=== PATIENT | female | born 1940 | race Caucasian/White ===

== ENCOUNTER 2017-03-11 16:15 | Emergency (ER) | payer MEDICARE, BC ==
[2017-03-11 16:23] VITALS: BP 132/76
--- NOTE | 2017-03-11 16:30 | UC ---
Neck Pain HPI - HPI Summary HPI Summary: 76 YEAR OLD FEMALE PRESENTS WITH COMPLAINS OF RIGHT SIDED NECK PAIN AND RIGHT WRIST DORSAL GANGLION. - History of Current Complaint Chief Complaint: ALESSANDRAkin Stated Complaint: NECK,SHOULDER,HEAD PAIN,WRIST INJURY Time Seen by Provider: 03/11/17 16:25 - Allergies/Home Medications Allergies/Adverse Reactions: Allergies Allergy/AdvReac Type Severity Reaction Status Date / Time Codeine Allergy Severe migraines Verified 03/11/17 16:24 Erythromycin Allergy Severe migraines Verified 03/11/17 16:24 zpack Allergy Mild migraines Uncoded 03/11/17 16:24 PMH/Surg Hx/FS Hx/Imm Hx Previously Healthy: Yes - Surgical History Surgical History: Yes Surgery Procedure, Year, and Place: partial hysterectomy, mastectomy left 1985 with chemo last dose 1985,tonsillectomy, appendectomy - Social History Alcohol Use: Rare Substance Use Type: None Smoking Status (MU): Never Smoked Tobacco Review Of Systems Constitutional: Positive: Negative Skin: Positive: Negative Eyes: Positive: Negative ENT: Positive: Negative Respiratory: Positive: Negative Gastrointestinal: Positive: Negative Genitourinary: Positive: Negative Musculoskeletal: Positive: Negative, Myalgia, Other: - RIGHT SIDED NECK PAIN RIGHT DORSUM GANGLION CYST Neurological: Positive: Negative Psychological: Positive: Negative All Other Systems Reviewed And Are Negative: Yes Physical Exam Triage Information Reviewed: Yes Vital Signs: Initial Vital Signs Temp 36.8 C 03/11/17 16:18 Pulse 70 03/11/17 16:18 Resp 18 03/11/17 16:18 BP 132/76 03/11/17 16:18 Pulse Ox 99 03/11/17 16:18 Eye Exam: Normal ENT Exam: Normal Dental Exam: Normal Neck exam: Normal Neck: Positive: 1 Respiratory Exam: Normal Cardiovascular Exam: Normal Abdominal Exam: Normal Musculoskeletal: Positive: Other: - RIGHT SIDED NECK PAIN RIGHT DORSUM GANGLION CYST Neurological Exam: Normal Psychological Exam: Normal Skin Exam: Normal Neck Pain Course/Dx - Differential Dx/Diagnosis Provider Diagnoses: RIGHT SIDED NECK PAIN. RIGHT DORSUM GANGLION CYST Discharge - Discharge Plan Condition: Stable Disposition: HOME Prescriptions: Diclofenac 1% GEL (NF) [Voltaren 1% GEL (NF)] 2 gm TOPICAL BID PRN #1 tube PRN Reason: Pain Methocarbamol TAB* [Robaxin 500 MG TAB*] 500 mg PO TID PRN #30 tab PRN Reason: Spasms Methylprednisolone [Medrol Dosepak 4 MG*] 4 mg PO .SEE MIAN INSTRUCTION #1 packet Patient Education Materials: Ganglion Cysts (ED), Acute Neck Pain (ED), Cervical Sprain (ED) Referrals: Tony Estrada MD [Primary Care Provider] -
--- NOTE | 2017-03-11 17:54 | RAD ---
INDICATION: Right wrist pain after "itching her wrist 2 days ago" COMPARISON: None. TECHNIQUE: 3 views right wrist. REPORT: The visualized bones are properly aligned and well corticated. The joint spaces are normal.There is no fracture, dislocation or other focal osseous abnormality. IMPRESSION: Normal radiograph of the right wrist. If the patient's symptoms persist, follow-up imaging is recommended.
--- NOTE | 2017-03-11 17:56 | RAD ---
INDICATION: Neck pain with right shoulder radiation COMPARISON: None. TECHNIQUE: 5 views of the cervical spine were obtained. FINDINGS: There is reversal of the normal cervical lordosis with the apex at the C5 level. The vertebral bodies and facet joints are otherwise anatomically aligned. Degenerative changes include loss of intervertebral disc height most severely at C5/C6 and C6/C7 where there is marginal osteophyte formation. The vertebral bodies are intact. The dens is intact. There is no acute prevertebral soft tissue swelling. IMPRESSION: Degenerative changes of the cervical spine as described above as well as reversal of the normal cervical lordosis, a nonspecific finding that can be seen in the setting of muscle spasm. If the patient's symptoms persist, follow-up imaging is recommended.
== END 2017-03-11 18:12 | disposition home or self-care (01) ==
LOC: UCEAST 16:15
DX: M54.2 Cervicalgia (principal); M67.431 Ganglion, right wrist; Z90.711 Acquired absence of uterus with remaining cervical stump; Z90.12 Acquired absence of left breast and nipple; Z85.3 Personal history of malignant neoplasm of breast; Z88.1 Allergy status to other antibiotic agents; Z88.5 Allergy status to narcotic agent
CPT/HCPCS: 72050; 99212; G0463

== ENCOUNTER 2017-08-24 08:11 | Emergency (ER) | payer MEDICARE, BC ==
[2017-08-24 08:27] VITALS: BP 111/71
--- NOTE | 2017-08-24 08:51 | UC ---
Back Pain HPI - HPI Summary HPI Summary: 1 WEEK OF PROGRESSIVELY WORSENING LOW BACK PAIN. FEELS DISCOMFORT EVEN AT REST - WORSE WITH MOVEMENT. DENIES NUMBNESS/TINGLING/SADDLE ANESTHESIA BUT DOES REPORT SOME DIFFICULTY WITH INITIATING URINATION AND SLOW URINE STREAM OVER THE PAST COUPLE OF YEARS. THIS SEEMS UNCHANGED WITH ONSET OF LOW BACK PAIN. PT REPORTS SHE WILL OCCASIONALLY HAVE SIMILAR LOW BACK PAIN BUT THAT AFTER A COUPLE OF DAYS IT GOES AWAY. PT DENIES FEVER. THERE HAS BEEN NO TRAUMA OR UNUSUAL ACTIVITY. HAS A GENERAL FEELING OF MALAISE. NO HELP WITH HEAT, ICE, OTC ANALGESICS. - History of Current Complaint Chief Complaint: UCBackPain Stated Complaint: BACK PAIN Time Seen by Provider: 08/24/17 08:38 Hx Obtained From: Patient Onset/Duration: Sudden Onset, Lasting Days, Still Present Timing: Constant Severity Initially: Moderate Severity Currently: Moderate Pain Intensity: 7 Pain Scale Used: 0-10 Numeric Back Pain: Is Discrete @ - LOW BACK Character: Sharp Aggravating Factor(s): Movement Alleviating Factor(s): Nothing Associated Signs And Symptoms: Negative: Swelling, Redness, Bruising, Weakness, Numbness, Bladder Incontinence, Bowel Incontinence - Allergies/Home Medications Allergies/Adverse Reactions: Allergies Allergy/AdvReac Type Severity Reaction Status Date / Time Codeine Allergy Severe migraines Verified 03/11/17 16:24 Erythromycin Allergy Severe migraines Verified 03/11/17 16:24 zpack Allergy Mild migraines Uncoded 03/11/17 16:24 Home Medications: Home Medications Budesonide/Formote 160/4.5(NF) [Symbicort 160/4.5 (NF)] 1 puff INHH DAILY [History Confirmed 08/24/17] Calcium Carbonate-Cholecalcife [Calcium 1000 + D 1000-800 mg-Unit] 1 tab PO [History] Turmeric (Curcuma Longa) (Bulk [Turmeric] 1 tab PO DAILY 08/24/17 [History Confirmed 08/24/17] PMH/Surg Hx/FS Hx/Imm Hx Neurological History: Migraine Cancer History: Breast Cancer - Surgical History Surgical History: Yes Surgery Procedure, Year, and Place: partial hysterectomy, mastectomy left 1985 with chemo last dose 1985,tonsillectomy, appendectomy - Family History Known Family History: Positive: Hypertension - Social History Alcohol Use: Rare Substance Use Type: None Smoking Status (MU): Never Smoked Tobacco Review of Systems Constitutional: Negative Skin: Negative Respiratory: Negative Cardiovascular: Negative Gastrointestinal: Negative Musculoskeletal: Decreased ROM, Myalgia All Other Systems Reviewed And Are Negative: Yes Physical Exam Triage Information Reviewed: Yes Appearance: Well-Appearing, No Pain Distress, Well-Nourished Vital Signs: Initial Vital Signs Temp 97.7 F 08/24/17 08:22 Pulse 80 08/24/17 08:22 Resp 16 08/24/17 08:22 BP 111/71 08/24/17 08:22 Pulse Ox 97 08/24/17 08:22 Vital Signs Reviewed: Yes Eyes: Positive: Conjunctiva Clear ENT: Positive: Hearing grossly normal Neck: Positive: Supple Respiratory: Positive: No respiratory distress, No accessory muscle use Cardiovascular: Positive: Pulses Normal Abdomen Description: Positive: Soft Musculoskeletal: Positive: No Edema, ROM Limited @ - BACK, Other: - TTP LOW BACK OVER SPINE Neurological: Positive: Alert Psychological: Positive: Age Appropriate Behavior Skin: Negative: rashes Diagnostics - Laboratory Diagnostic Studies Completed/Ordered: URINE DIP SP. GR. 1.015, TRACE KETONES, TRACE LEUKS - Radiology LUMBARSARCRAL XRAYS Xray Interpretation: Positive (See Comments) - FACET OSTEOARTHRITIS MOST PRONOUNCED AT L4-L5 AND L5-S1 WITH MILD DEGENERATIVE DISC DISEASE. Radiology Interpretation Completed By: Radiologist Back Pain Course/Dx - Differential Dx/Diagnosis Provider Diagnoses: LOW BACK PAIN/OA/DJD Discharge - Discharge Plan Condition: Stable Disposition: HOME Patient Education Materials: Osteoarthritis (ED), Low Back Strain (ED), Degenerative Disc Disease (ED) Referrals: [facility] [Provider Group] - 2 Weeks Tony Estrada MD [Primary Care Provider] - 1 Week Yue Alanis MD [Medical Doctor] - 2 Weeks Additional Instructions: XRAY TODAY SHOWS OSTEOARTHRITIS AND DEGENERATIVE DISC DISEASE BUT NO ACUTE PATHOLOGY. FOLLOW-UP WITH YOUR PCP TO FURTHER EVALUATE YOUR PERSISTENT BACK PAIN. YOU MAY BENEFIT FROM FURTHER IMAGING AND MAY CONSIDER EVAL BY [facility] IN [place]. PHYSICAL THERAPY REFERRAL PROVIDED TODAY. [facility] [address] [place] [id number] CONSIDER UROLOGY AND/OR PIPE ORGAN INSTALLER EVAL FOR YOUR URINARY SX. URINE SPECIMEN SENT FOR CULTURE.
--- NOTE | 2017-08-24 09:43 | RAD ---
HISTORY: Back pain COMPARISONS: October 17, 2006 VIEWS: 5 , Frontal, lateral, coned-down lateral sacral, and bilateral oblique views of the lumbar spine. FINDINGS: ALIGNMENT: The alignment is normal. VERTEBRAL BODIES: The vertebral body heights are normal. The interpedicular distances are normal. JOINTS: There is facet osteoarthritis most pronounced at L4-L5 and L5-S1. INTERVERTEBRAL DISCS: There is mild diffuse loss of intervertebral disc height. SOFT TISSUE: Vascular calcifications are noted. OTHER: The pelvis is unremarkable. The lung bases are clear. IMPRESSION: FACET OSTEOARTHRITIS MOST PRONOUNCED AT L4-L5 AND L5-S1 WITH MILD DEGENERATIVE DISC DISEASE.
== END 2017-08-24 10:22 | disposition home or self-care (01) ==
LOC: UCEAST 08:11
DX: M54.5 Low back pain (principal); M19.90 Unspecified osteoarthritis, unspecified site; R39.198 Other difficulties with micturition; Z85.3 Personal history of malignant neoplasm of breast
CPT/HCPCS: 72110; 81003; 87086; 99211; G0463

== ENCOUNTER 2018-12-16 07:33 | Emergency (ER) | payer MEDICARE, BC ==
--- OUTSIDE RECORDS SUMMARY | 2018-12-16 07:42 | XMS REPORT | Continuity of Care Document ---
:1940 External Reference #:[id number] Author Name Chari Etienne Care Team Providers Name Role Phone Gauri Herbert M.D. Primary Care Physician Unavailable Payers Date Identification Numbers Payment Provider Subscriber Effective: 2004 Policy Number: [id number] Medicare Elham Colin PayID: [id number] [address] [place] [address] Effective: 2012 Policy Number: [id number] BS Facets Elham Colin PayID: [id number] [address] [address] [place] [address] Effective: 2005 Policy Number: [id number] BS Of GASTON Colin Expires: 2012 Group Number: [id number] [address] PayID: [id number] [place] [address] Advance Directives Type Date Description Status Comment Other Directive 09/02/2017 Health Care Proxy Current and Verified Problems Active Problems Provider Date Heterozygous Factor V Leiden mutation Tony Estrada M.D.,FACP Onset: 04/2015 Irritable bowel syndrome Tony Estrada M.D.,FACP Onset: 10/17/2007 Personal history of primary malignant Tony Estrada M.D.,FACP Onset: neoplasm of breast Note: 1985 Migraine without aura, not refractory Tony Estrada M.D.,FACP Onset: 01/2008 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.,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 climacteric state Tony Estrada M.D.,FACP Onset: 02/25/2011 Insomnia Tony Estrada M.D.,FACP Onset: 07/23/2011 Osteoporosis Tony Estrada M.D.,FACP Onset: 12/29/2016 Note: spinal, not hip Inactive Problems Lymphadenopathy Tony Estrada M.D.,FACP Onset: 07/02/2013 Inactive: 09/19/2014 Disorder of bone Tony Estrada M.D.,FACP Onset: 05/07/2008 Inactive: 04/09/2015 Osteopenia Tony Estrada M.D.,FACP Onset: 04/09/2015 Inactive: 12/29/2016 Family History Date Family Member(s) Observation Comments : (age 48 Years) Father due to MA Mother due to Stroke () Children 2 First Daughter Arnold-Chiari I malformation First Daughter Pulmonary Embolism (Pe) First Daughter Factor 5 Leiden Second Daughter Depression Siblings Only child Siblings None Social History Type Date Description Comments Sex Unknown Marital Status Occupation Retired Tobacco Use Start: Unknown Never Smoked Cigarettes Tobacco Use Start: Unknown Significant Secondhand Smoke Exposure Smoking Status Reviewed: 12/11/18 Significant Secondhand Smoke Exposure ETOH Use 10/05/2018 Rarely consumes alcohol Recreational Drug Use Denies Drug Use Tobacco Use Start: Unknown Patient has never smoked Exercise Type/Frequency Exercises sporadically Allergies, Adverse Reactions, Alerts Active Allergies Reaction Severity Comments Date Erythromycin headache 10/17/2007 Reglan 10/17/2007 Compazine 10/17/2007 Mirapex fever, muscle pain 01/16/2009 Cefdinir severe migraine 08/28/2010 Nifedipine severe migraines 12/07/2012 Medications Active Medications SIG Qnty Indications Ordering Date Provider Shingrix 0.5 milliliters 2units Tony Ulrich 10/05/2018 intramuscular now Gamal Estrada,FACP 50mcg/0.5ML and 2-3 months later Suspension Rec repeat Riboflavin 4 every day 120caps Tony Ulrich 12/29/2016 100mg Gamal Estrada,FACP Capsules Vitamin B-Complex 1 by mouth every day 90tabs Tony Ulrich 09/24/2016 Gamal Estrada,FACP Tablets Calcium Citrate + Tony Ulrich 09/24/2016 D3 Gamal Estrada,FACP [id number] Tablets Vitamin A 1 daily Tony Ulrich 07/23/2011 5000Unit Gamal Estrada,FACP Capsules Potassium/Magnesium 1 daily Tony Ulrich 07/23/2011 Aspartate Gamal Estrada,FACP 50-20mg Capsules Iron 29 MG daily Unknown Turmeric 300 mg daily Unknown Glucosamine daily w/ MSM Unknown Chondroitin 1500 Complex 1500Com Capsules Aspirin Adult take one tab daily Unknown 325mg Tablets [place] Mushroom Unknown Capsule Magnesium 1 po bid 30caps Unknown 400mg Capsules Vitamin D 1 po qd Unknown 2000Unit Capsules Vitamin C 3 In Am, 2 In PM Unknown 2000mg Tablets History Medications Ranitidine 150 1 tab by mouth twice 60tabs R06.00 Kameron Kapadia 2018 - Maximum Strength a day 12/04/2018 150mg Tablets Flutter use as instructed 1units Kameron Kapadia 11/04/2018 - Device twice a day 12/10/2018 Zofran Odt let one tablet 30tabs Tony Ulrich 03/15/2018 - 4mg dissolve on tongue Gamal Estrada,[facility] 09/29/2018 Tablets Dispers every 5-6 hours as needed for nausea. Doxycycline Hyclate 1 by mouth twice a 60tabs Tony Ulrich 02/17/2018 - day Gamal Estrada,[facility] 09/29/2018 100mg Tablets Nabumetone take one tablet by 20tabs Tony Ulrich 01/27/2018 - 500mg mouth twice a day as Gamal Estrada,[facility] 09/29/2018 Tablets needed Flector apply 1 patch to the 10units Tony Ulrich 01/16/2018 - 1.3% skin two times daily [facility] 01/27/2018 Patches as needed Doxycycline Hyclate 1 by mouth twice a 28tabs Tony Ulrich 01/16/2018 - day [facility] 02/01/2018 100mg Tablets Rozerem 1 by mouth every 30tabs Tony Ulrich 10/12/2017 - 8mg Tablets night at bedtime as Gamal Estrada,[facility] 09/29/2018 needed for insomnia Triamcinolone apply every day as 15gm Tony Ulrich 12/07/2016 - Acetonide needed Gamal Estrada,[facility] 09/29/2018 0.1% Cream B2 Tony Ulrich 09/24/2016 - 100mg Tablets Gamal Estrada,[facility] 12/29/2016 Symbicort 2 puff twice a day 3units Tony Ulrich 09/24/2016 - Gamal Estrada,[facility] 12/28/2017 80-4.5mcg/Act Aerosol Olopatadine HCL 1 drop in eyes twice 1units Tony Ulrich 09/24/2016 - a day Gamal Estrada,[facility] 01/27/2018 0.1% Solution Systane one drop in each eye 120ml Tony Ulrich 09/24/2016 - 0.4-0.3% twice daily plus as Gamal Estrada,[facility] 01/27/2018 Solution needed every 2 hours Melatonin ER 1 by mouth every 30tabs R41.3 Tony Ulrich 09/24/2016 - 10mg night at bedtime Gamal Estrada,[facility] 09/26/2017 Tablets ER Xifaxan 1 tab by mouth three 42tabs Kimo Vang, 05/08/2015 - 550mg a day 09/24/2016 Tablets Aspirin 1 by mouth every day 786.59 Tony Ulrich 10/07/2014 - 325mg prn Gamal Estrdaa,[facility] 09/24/[address] Azithromycin 2 tabs by mouth on 6tabs 465.8 Cory Arteaga NP 10/07/2014 - 250mg day one followed by 04/16/2015 Tablets 1 tab daily for the last 4 days Pennsaid 5 ggts L wrist bid 15ml 726.90 Tony Ulrich 10/03/2013 - 1.5% prn Gamal Estrada,[facility] 10/10/2013 Solution Ibuprofen tid prn 90tabs 726.90 Tony Ulrich 10/03/2013 - 600mg Gamal Estrada,[facility] 10/10/2013 Tablets Voltaren apply 2 gms to 100g 726.90 Tony Ulrich 09/10/2013 - 1% Gel affected area bid Gamal Estrada,[facility] 10/03/2013 prn Levaquin 1 po qd x 14 days 7tabs Tony Ulrich 07/02/2013 - 500mg for bronchiectasis Gamal Estrada,[facility] 09/10/2013 Tablets exacerbation Levofloxacin 1 po qd 7tabs Tony Ulrich 02/19/2013 - 500mg Gamal Estrada,[facility] 02/26/2013 Tablets Aspirin 1 po qd 30tabs 786.59 Tony Ulrich 02/12/2013 - 325mg Gamal Estrada,[facility] 10/07/2014 Tablets Benzonatate take 1 capsule by 60caps 461.8 Ayala 02/09/2013 - 200mg mouth three times a CottonGamal 09/10/2013 Capsules day if needed Asmanex 30 Metered inhaled qd 1units Tony Ulrich 02/06/2013 - Doses Gamal Estrada,[facility] 02/26/2013 110mcg/Inh Aerosol Azithromycin take 2 tab on day 1 6tabs Nina Cortez, 01/17/2013 - 250mg then 1 tab daily x 4 M.D. 01/29/2013 Tablets days Benzonatate 1 tab at hs 10caps 461.8 Nina Cortez, 01/15/2013 - 100mg M.DKaylen 02/09/2013 Capsules Coumadin as directed 90tabs V58.61 Melanie Blum, 01/15/2013 - 1mg N.P. 02/12/2013 Tablets Nifedipine 1 po qd 444.9 Tony Ulrich 11/24/2012 - 90mg Gamal Estrada,[facility] 11/24/2012 Tablets ER 24HR Coumadin 2 qd x3 day, then 1 30tabs 444.9 Tony Ulrich 11/23/2012 - 2.5mg qd or as directed Gamal Estrada,[facility] 01/25/2013 Tablets Warfarin Sodium 2 tabs qd for 3 30tabs 444.9 Tony Ulrich 11/23/2012 - days, then 1 qd or Gamal Estrada,[facility] 11/23/2012 Tablets as directed Nifedipine 1/4 tab PO tid 30caps 444.9 Tony Ulrich 11/23/2012 - 10mg Gamal Estrada,[facility] 12/07/2012 Capsules Nifedipine 1 po daily Tony Ulrich 11/23/2012 - 2.5mg Gamal Estrada,[facility] 11/23/2012 Capsules Nifedipine 1/4 tab PO tid 30caps Tony Ulrich 11/22/2012 - 10mg Gamal Estrada,[facility] 11/23/2012 Capsules Omeprazole 1 po qd 30caps 535.00 Tony Ulrich 10/20/2012 - 20mg Gamal Estrada,[facility] 12/07/[address] Gann/Potasstyree 1 bid x 7 days 14tabs 466.0 Tony Ulrich 09/06/2012 - um Clavulanate Gamal Estrada,[facility] 10/20/2012 875-125mg Tablets Levaquin 1 po qd x 10 days 10tabs 473.0 Tony Ulrich 04/04/2012 - 500mg Gamal Estrada,[facility] 05/02/2012 Tablets Aspirin Ec 1 po qd 90tabs 786.59 Tony Ulrich 03/20/2012 - 81mg [facility] 02/12/[address] Hernandez take 1 capsule by 30caps Tony Ulrich 11/08/2011 - 324mg mouth at bedtime Gamal [facility]strada,[facility] 10/20/2012 Capsules Paul-Mag 2 daily Tony Ulrich 07/23/2011 - 500-250mg [facility]al [facility]strada,[facility] 12/29/2016 Tablets Rozerem use prn sleep 20tabs 780.52 Tony Ulrich 07/23/2011 - 8mg Tablets Gamal Estrada,[facility] 11/23/2012 Xifaxan 1 po tid for 2 wks 42tabs 564.1 Tony Ulrich 02/25/2011 - 550mg Gamal Estrada,[facility] 07/23/2011 Tablets Frova q2h prn mdd2 9tabs Tony Ulrich 08/14/2010 - 2.5mg Tablets Gamal Estrada,[facility] 11/23/2012 Relpax prn q2h po mdd 2 12tabs Tony Ulrich 08/10/2010 - 20mg Tablets Gamal Estrada,[facility] 08/14/2010 Advair Diskus 1 puff po bid 1units Trevon 07/22/2010 - Gamal Lewis 08/28/2010 250-50mcg/Dose Aerosol Proventil HFA 2 puffs qid 1month 466.0 [place] 07/13/2010 - Gamal Lewis 07/23/2011 108(90Base) mcg/ac Aerosol Duoneb 1 vial via neb q 6 120units [place] 07/13/2010 - hours prn Gamal Lewis 08/28/2010 0.5-2.5(3)mg/3ML Solution Nasonex 2 sprays each 3mon 381.81 Tony Ulrich 07/06/2010 - 50mcg/Act nostril daily Gamal Estrada,[facility] 07/23/2011 Suspension Zolpidem Tartrate 1 tab po qhs prn 20tabs 780.52 Tony Ulrich 04/29/2009 - Gamal Estrada,[facility] 07/23/2011 5mg Tablets Zofran Odt po/sl prn two 346.11 Tony Ulrich 04/29/2009 - 8mg Gamal Estrada,[facility] 07/23/2011 Tablets Dispers Doxepin HCL use as directed 100caps Tony Ulrich 01/16/2009 - 10mg Gamal Estrada,[facility] 04/29/2009 Capsules Vitamin D 2 po qd 90caps Tony Ulrich 12/09/2008 - 1000Unit Gamal Estrada,[facility] 12/07/2012 Capsules Glycolax 17 g po qd, mixed 1month 729.82 Tony Ulrich 12/09/2008 - 3350NF with water Gamal Estrada,[facility] 07/23/2011 Powder Magnesium Sulfate inject 2ml(1gm)after 20units Tony Giraldo/04/2009 - dilution qd prn [facility] 02/25/2011 50% Solution Gabapentin 2-3 tabs qhs po prn 90caps 333.94 Tony Ulrich 11/18/2008 - 100mg [facility]ada,[facility] 02/25/2011 Capsules Magnesium (Not Sure 2 packets daily. Tony Ulrich 11/18/2008 - Which Type) Gamal Estrada,[facility] 11/18/2008 400mg Trazodone HCL 1/2-1 QHS 30tabs Tony Ulrich 05/07/2008 - 50mg Gamal Estrada,[facility] 11/18/2008 Tablets Sennagen 4 tab po qhs 30tabs Tony Ulrich 10/17/2007 - 8.6mg Gamal Estrada,[facility] 07/23/2011 Tablets Amitiza 1 bid po 60caps 564.1 Tony Ulrich 10/17/2007 - 24mcg Gamal Estrada,[facility] 05/07/2008 Capsules Gentamicin Sulfate 2 ggt affected eye 5ml Tony Ulrich 07/21/2007 - q4h Gamal Estrada,[facility] 10/17/2007 0.3% Solution Naproxen 1 PO bid prn 60tabs Tnoy Ulrich 07/07/2007 - 500mg Gamal Estrada,[facility] 07/23/2011 Tablets Symbicort Unknown - 12/10/2018 Tamsulosin HCL 1 by mouth every day Unknown - 10/05/2018 0.4mg Capsules Amoxicillin/Clavula 1 po bid 10tabs Unknown - jean paul Potassium 01/29/2013 875-125mg Tablets Flonase 2 intranasal puffs 1units Unknown - 50mcg/Act to each nostril 02/26/2013 Suspension daily Vitamin E With 1 qod Unknown - Selenium 07/02/2013 400Iu/100mcg Capsule Ketorolac tid until gone Unknown - Tromethamine 01/29/2013 0.5% Solution Prednisolone 1 drop qid for a Unknown - Acetate month 01/29/2013 1% Suspension Vigamox 1 drop qid for a Unknown - 0.5% week. 12/07/2012 Solution Lovenox sc bid 10units Tony Ulrich - 60mg/0.6ML Gamal Estrada,FACP 11/27/2012 Solution Riboflavin 4 tabs qd Unknown - Tablets 09/24/2016 Petadolex 1 tab po tid Unknown - 250mg 09/10/2013 Magnesium 1 PO qd Tony Ulrich - 600mg Gamal Estrada,FACP 07/02/2013 Tablets Vitamin A & D Tony Ulrich - [facility] 12/09/2008 Vitamin E 1 PO qd Tony Ulrich - 400Unit Gamal Estrada,FACP 12/07/2012 Capsules Vit Balanced B-100 1 tablet daily Tony Ulrich - Gamal Estrada,FACP 09/26/2017 Vit C 1 PO qd Tony Ulrich - 500mg, Gamal Estrada,FACP 12/07/2012 Tablets Indomethacin SA 1 tab daily as 30caps Tony Ulrich - needed for migraine Gamal Estrada,FACP 07/23/2011 75mg Capsules ER Imitrex Tony Ulrich - 20mg/Act Gamal Estrada,FACP 08/10/2010 Solution Medications Administered in Office Medication SIG Qnty Indications Ordering Provider Date Celestone 3 mg and 3mg Denisha Tang, 05/01/2014 Injection M.DKaylen Celestone 3 mg and 3mg Denisha Tang, 10/10/2013 Injection M.DKaylen Immunizations CPT Code Status Date Vaccine Reaction Lot # [id number] Given 05/08/2018 Influenza Virus Vaccine, [id number] Quadrivalent, Split, Preservative Free 22330 Given 05/02/2017 Influenza Virus Vaccine, pt tolerated well [id number] Quadrivalent, Split, Preservative Free 75811 Given 05/15/2016 Influ Virus Vaccine, noo reaction noted ... [id number] Quadrivalent, Split Virus, [place] [address] Given 04/17/2015 Influenza Virus Vaccine, no reaction , no [id number] Quadrivalent, Split, comments Preservative Free 98783 Given 09/19/2014 Pneumococcal Conjugate [id number] Vaccine 13 Valent For Intramuscular Use 56669 Given 05/03/2014 Influenza Virus Vaccine, Quadrivalent, Split, Preservative Free 23311 Given 05/03/2014 Influenza Virus Vaccine, [id number] Quadrivalent, Split, Preservative Free 88586 Given 05/07/2013 Flu Vaccine Split Virus [id number] Preservative Free For Indiv 3Yr Older Q2038 Given 04/04/2012 Fluzone Vaccine [id number] Q2038 Given 04/09/2011 Fluzone Vaccine [id number] Q2038 Given 04/09/2011 Fluzone Vaccine Q2038 Given 04/09/2011 Fluzone Vaccine 89162 Given 05/08/2010 Influenza Virus 3Yrs & [id number] Over 78610 Given 05/08/2010 Influenza Virus 3Yrs & Over 89372 Given 07/21/2009 Influenza Virus Vaccine, [id number] 5P Pandemic Formulation 69167 Given 05/07/2008 Influenza Virus 3Yrs & Over 41724 Given 05/07/2008 Influenza Virus 3Yrs & 7723 Over 33278 Given 09/02/2006 Zoster (Zostavax) 03913 Given 12/10/2005 Tetanus And Diptheria (Td) For Adult Use Preservative Free 58192 Given 02/09/2005 Pneumonia Vaccine Vital Signs Date Vital Result Comment 12/11/2018 9:43am Height 65.5 inches 5'5.50" Weight 116.00 lb Heart Rate 84 /min BP Systolic Sitting 110 mmHg Rue regular cuff BP Diastolic Sitting 60 mmHg Rue regular cuff Respiratory Rate 20 /min O2 % BldC Oximetry 96 % BMI (Body Mass Index) 19.0 kg/m2 11/04/2018 8:43am Height 65.5 inches 5'5.50" Weight 117.00 lb Heart Rate 70 /min BP Systolic Sitting 124 mmHg BP Diastolic Sitting 66 mmHg Respiratory Rate 18 /min O2 % BldC Oximetry 94 % on Ra BMI (Body Mass Index) 19.2 kg/m2 Neck Circumference in inches 12 10/05/2018 2:29pm Height 65.5 inches 5'5.50" Weight 117.25 lb Heart Rate 73 /min BP Systolic Sitting 116 mmHg reg adult cuff right arm BP Diastolic Sitting 72 mmHg reg adult cuff right arm O2 % BldC Oximetry 94 % at rest on room air BMI (Body Mass Index) 19.2 kg/m2 02/13/2018 10:43am Weight 115.00 lb Heart Rate 84 /min BP Systolic Sitting 120 mmHg BP Diastolic Sitting 66 mmHg Body Temperature 96.7 F O2 % BldC Oximetry 95 % 01/27/2018 8:42am Weight 115.38 lb Heart Rate 72 /min BP Systolic Sitting 134 mmHg BP Diastolic Sitting 70 mmHg Body Temperature 97.0 F O2 % BldC Oximetry 95 % 01/16/2018 10:51am Height 65 inches 5'5" Weight 115.00 lb Heart Rate 83 /min BP Systolic Sitting 122 mmHg BP Diastolic Sitting 66 mmHg Body Temperature 97.5 F O2 % BldC Oximetry 95 % BMI (Body Mass Index) 19.1 kg/m2 12/28/2017 10:57am Height 65 inches 5'5" Weight 115.00 lb Heart Rate 84 /min BP Systolic Sitting 124 mmHg BP Diastolic Sitting 70 mmHg Body Temperature 97.0 F O2 % BldC Oximetry 94 % BMI (Body Mass Index) 19.1 kg/m2 09/26/2017 9:20am Height 65 inches 5'5" Weight 118.00 lb Heart Rate 70 /min BP Systolic Sitting 128 mmHg BP Diastolic Sitting 66 mmHg Body Temperature 97.4 F O2 % BldC Oximetry 97 % BMI (Body Mass Index) 19.6 kg/m2 09/02/2017 11:10am Weight 117.00 lb Heart Rate 80 /min BP Systolic Sitting 132 mmHg BP Diastolic Sitting 84 mmHg Body Temperature 97.8 F O2 % BldC Oximetry 94 % 12/29/2016 9:50am Weight 116.38 lb Heart Rate 75 /min BP Systolic Sitting 120 mmHg BP Diastolic Sitting 80 mmHg Body Temperature 97.6 F O2 % BldC Oximetry 96 % 09/24/2016 9:54am Height 65 inches 5'5" Weight 116.00 lb Heart Rate 78 /min BP Systolic Sitting 128 mmHg BP Diastolic Sitting 64 mmHg Body Temperature 97.3 F O2 % BldC Oximetry 97 % BMI (Body Mass Index) 19.3 kg/m2 04/17/2015 3:34pm Height 65.5 inches 5'5.50" Weight 117.12 lb Heart Rate 76 /min BP Systolic Sitting 131 mmHg BP Diastolic Sitting 85 mmHg Body Temperature 98.6 F O2 % BldC Oximetry 96 % BMI (Body Mass Index) 19.2 kg/m2 10/07/2014 11:26am Height 65.5 inches 5'5.50" Weight 123.00 lb Heart Rate 72 /min BP Systolic Sitting 110 mmHg BP Diastolic Sitting 62 mmHg Body Temperature 97.4 F O2 % BldC Oximetry 97 % BMI (Body Mass Index) 20.2 kg/m2 09/27/2014 2:15pm Weight 122.75 lb Heart Rate 80 /min BP Systolic Sitting 128 mmHg BP Diastolic Sitting 74 mmHg 05/01/2014 9:19am Height 65 inches 5'5" Weight 120.00 lb Heart Rate 86 /min BMI (Body Mass Index) 20.0 kg/m2 03/27/2014 9:31am Height 65 inches 5'5" Weight 120.00 lb Heart Rate 66 /min BP Systolic 146 mmHg BP Diastolic 83 mmHg BMI (Body Mass Index) 20.0 kg/m2 10/10/2013 8:19am Height 65 inches 5'5" Weight 120.00 lb Heart Rate 73 /min BP Systolic 126 mmHg BP Diastolic 77 mmHg BMI (Body Mass Index) 20.0 kg/m2 10/03/2013 3:57pm Height 65 inches 5'5" Weight 123.00 lb Heart Rate 72 /min BP Systolic Sitting 110 mmHg BP Diastolic Sitting 70 mmHg Body Temperature 97.9 F BMI (Body Mass Index) 20.5 kg/m2 09/10/2013 11:06am Height 65.5 inches 5'5.50" Weight 130.69 lb Heart Rate 72 /min BP Systolic Sitting 138 mmHg BP Diastolic Sitting 82 mmHg BMI (Body Mass Index) 21.4 kg/m2 07/02/2013 11:08am Height 65.5 inches 5'5.50" Weight 123.25 lb Heart Rate 68 /min BP Systolic Sitting 130 mmHg BP Diastolic Sitting 80 mmHg BMI (Body Mass Index) 20.2 kg/m2 02/26/2013 3:05pm Weight 117.50 lb Heart Rate 92 /min BP Systolic Sitting 124 mmHg BP Diastolic Sitting 72 mmHg Respiratory Rate 18 /min Body Temperature 96.8 F O2 % BldC Oximetry 98 % 02/14/2013 11:08am Height 65.25 inches 5'5.25" Weight 120.50 lb Heart Rate 82 /min BP Systolic Sitting 120 mmHg BP Diastolic Sitting 74 mmHg Body Temperature 96.5 F O2 % BldC Oximetry 94 % BMI (Body Mass Index) 19.9 kg/m2 02/09/2013 9:47am Weight 117.50 lb Heart Rate 80 /min BP Systolic Sitting 130 mmHg BP Diastolic Sitting 70 mmHg Body Temperature 97.3 F O2 % BldC Oximetry 98 % Peak Flow Meter 360 before 360,360,350 after 350,340,350 01/29/2013 3:05pm Height 65.25 inches 5'5.25" Weight 119.50 lb Heart Rate 84 /min BP Systolic Sitting 110 mmHg BP Diastolic Sitting 76 mmHg BMI (Body Mass Index) 19.7 kg/m2 01/15/2013 9:45am Weight 118.00 lb Heart Rate 87 /min BP Systolic Sitting 110 mmHg BP Diastolic Sitting 62 mmHg Body Temperature 98.3 F 12/07/2012 3:36pm Height 65.5 inches 5'5.50" Weight 120.25 lb Heart Rate 88 /min BP Systolic Sitting 120 mmHg BP Diastolic Sitting 60 mmHg BMI (Body Mass Index) 19.7 kg/m2 11/23/2012 3:38pm Height 65.25 inches 5'5.25" Weight 121.00 lb Heart Rate 68 /min BP Systolic Sitting 122 mmHg BP Diastolic Sitting 74 mmHg BMI (Body Mass Index) 20.0 kg/m2 10/20/2012 4:25pm Height 65.25 inches 5'5.25" Weight 119.00 lb Heart Rate 74 /min BP Systolic Sitting 122 mmHg BP Diastolic Sitting 76 mmHg BMI (Body Mass Index) 19.6 kg/m2 09/06/2012 4:03pm Height 65.25 inches 5'5.25" Weight 118.00 lb Heart Rate 80 /min BP Systolic Sitting 130 mmHg BP Diastolic Sitting 66 mmHg Body Temperature 97.5 F Tympanically BMI (Body Mass Index) 19.5 kg/m2 04/04/2012 11:47am Height 65.25 inches 5'5.25" Weight 121.00 lb Heart Rate 66 /min BP Systolic Sitting 124 mmHg BP Diastolic Sitting 80 mmHg Body Temperature 96.3 F lt ear BMI (Body Mass Index) 20.0 kg/m2 03/20/2012 12:25pm Height 65.25 inches 5'5.25" Weight 119.00 lb Heart Rate 66 /min BP Systolic Sitting 126 mmHg BP Diastolic Sitting 74 mmHg BMI (Body Mass Index) 19.6 kg/m2 07/23/2011 1:41pm Height 65.25 inches 5'5.25" Weight 118.75 lb Heart Rate 80 /min BP Systolic Sitting 108 mmHg BP Diastolic Sitting 60 mmHg BMI (Body Mass Index) 19.6 kg/m2 02/25/2011 3:29pm Weight 117.00 lb Heart Rate 70 /min BP Systolic Sitting 118 mmHg BP Diastolic Sitting 80 mmHg 08/28/2010 2:00pm Weight 116.00 lb Heart Rate 68 /min BP Systolic Sitting 112 mmHg BP Diastolic Sitting 68 mmHg 07/20/2010 2:35pm Heart Rate 75 /min BP Systolic Sitting 118 mmHg BP Diastolic Sitting 70 mmHg O2 % BldC Oximetry 98 % 07/13/2010 3:32pm Heart Rate 74 /min BP Systolic Sitting 126 mmHg BP Diastolic Sitting 80 mmHg Body Temperature 97.3 F O2 % BldC Oximetry 98 % 07/06/2010 11:08am Weight 114.00 lb Heart Rate 86 /min BP Systolic Sitting 112 mmHg BP Diastolic Sitting 60 mmHg 07/21/2009 1:59pm Weight 115.00 lb Heart Rate 82 /min BP Systolic Sitting 120 mmHg BP Diastolic Sitting 78 mmHg 07/04/2009 11:09am Weight 118.00 lb Heart Rate 77 /min BP Systolic Sitting 124 mmHg BP Diastolic Sitting 75 mmHg Body Temperature 98.3 F 06/24/2009 2:19pm Weight 116.00 lb Heart Rate 80 /min BP Systolic Sitting 122 mmHg BP Diastolic Sitting 70 mmHg 04/29/2009 3:14pm Weight 117.00 lb Heart Rate 82 /min BP Systolic Sitting 125 mmHg BP Diastolic Sitting 67 mmHg 04/04/2009 3:52pm Weight 115.00 lb Heart Rate 86 /min BP Systolic Sitting 114 mmHg BP Diastolic Sitting 64 mmHg 01/16/2009 11:34am Weight 112.75 lb Heart Rate 80 /min BP Systolic Sitting 120 mmHg BP Diastolic Sitting 70 mmHg 12/09/2008 11:13am Weight 113.00 lb Heart Rate 78 /min BP Systolic Sitting 100 mmHg BP Diastolic Sitting 76 mmHg BMI (Body Mass Index) 6.2 kg/m2 11/18/2008 10:02am Height 65.50 inches 5'5.50" Weight 117.00 lb Heart Rate 72 /min BP Systolic Sitting 110 mmHg BP Diastolic Sitting 64 mmHg BMI (Body Mass Index) 19.2 kg/m2 05/07/2008 11:28am Height 65.50 inches 5'5.50" Weight 114.00 lb Heart Rate 62 /min BP Systolic Sitting 118 mmHg BP Diastolic Sitting 70 mmHg BMI (Body Mass Index) 18.7 kg/m2 04/08/2008 11:56am Height 65.50 inches 5'5.50" Weight 114.00 lb Heart Rate 60 /min BP Systolic Sitting 138 mmHg BP Diastolic Sitting 60 mmHg BMI (Body Mass Index) 18.7 kg/m2 04/08/2008 11:51am Height 65.50 inches 5'5.50" Weight 118.00 lb Heart Rate 68 /min BP Systolic Sitting 98 mmHg BP Diastolic Sitting 50 mmHg BMI (Body Mass Index) 19.3 kg/m2 04/08/2008 11:49am Height 65.50 inches 5'5.50" Weight 114.00 lb BP Systolic Sitting 98 mmHg BP Diastolic Sitting 50 mmHg BMI (Body Mass Index) 18.7 kg/m2 10/17/2007 9:10am Height 65.50 inches 5'5.50" Weight 117.00 lb Heart Rate 66 /min BP Systolic Sitting 118 mmHg BP Diastolic Sitting 70 mmHg BMI (Body Mass Index) 19.2 kg/m2 Results Test Date Facility Test Result H/L Range Note CBC Auto Diff 02/13/2018 [facility] White Blood 5.6 10^3/uL N 3.5-10.[address] [place] [address] [phone] Red Blood Count 4.58 10^6/uL N 4.00-5.40 Hemoglobin 15.0 g/dL N 12.0-16.0 Hematocrit 45 % N 35-47 Mean Corpuscular Volume 98 fL High 80-97 Mean Corpuscular Hemoglobin 33 pg High 27-31 Mean Corpuscular HGB Conc 34 g/dL N 31-36 Red Cell Distribution Width 14 % N 10.5-15 Platelet Count 246 10^3/uL N 150-450 Mean Platelet Volume 8.2 um3 N 7.4-10.4 Abs Neutrophils 3.9 10^3/uL N 1.5-7.7 Abs Lymphocytes 1.1 10^3/uL N 1.0-4.8 Abs Monocytes 0.4 10^3/uL N 0-0.8 Abs Eosinophils 0.1 10^3/uL N 0-0.6 Abs Basophils 0 10^3/uL N 0-0.2 Abs Nucleated RBC 0 10^3/uL Granulocyte % 69.6 % N 38-83 Lymphocyte % 19.7 % Low 25-47 Monocyte % 7.3 % High 0-7 Eosinophil % 2.6 % N 0-6 Basophil % 0.8 % N 0-2 Nucleated Red Blood Cells % 0 Comp Metabolic Panel 02/13/2018 [facility] Sodium 141 mmol/L N 135-[address] [place] [address] [phone] Potassium 4.1 mmol/L N 3.5-5.0 Chloride 104 mmol/L N 101-111 Co2 Carbon Dioxide 30 mmol/L N 22-32 Anion Gap 7 mmol/L N 2-11 Glucose 99 mg/dL N 70-100 Blood Urea Nitrogen 19 mg/dL N 6-24 Creatinine 0.75 mg/dL N 0.51-0.95 BUN/Creatinine Ratio 25.3 High 8-20 Calcium 10.1 mg/dL N 8.6-10.3 Total Protein 6.5 g/dL N 6.4-8.9 Albumin 4.3 g/dL N 3.2-5.2 Globulin 2.2 g/dL N 2-4 Albumin/Globulin Ratio 2.0 N 1-3 Total Bilirubin 0.50 mg/dL N 0.2-1.0 Alkaline Phosphatase 82 U/L N 34-104 Alt 22 U/L N 7-52 Ast 27 U/L N 13-39 Egfr Non- 74.7 >60 Egfr 90.4 >60 1 Laboratory test 02/13/2018 [facility] C Reactive < 1.00 mg/L N <8.[address] [place] [address] [phone] Tick-Borne Panel 02/13/2018 [facility] Babesia Negative Negative PCR Blood [address] [place] [address] [phone] Babesia ducani Negative Negative Babesia divergens/Mo-1 Negative Negative 2 Anaplasma phagocytophilum Negative Negative Ehrlichia chaffeensis Negative Negative Ehrlichia ewingii/canis Negative Negative Ehrlichia muris-like Negative Negative 3 B. miyamotoi PCR, B Negative Negative 4 Lyme Disease 02/13/2018 [facility] B burgdorferi Negative Negative PCR [address] PCR, [place] [address] [phone] B mayonii PCR Negative Negative B garinii/B afzelii PCR Negative Negative Lyme Disease PCR Comment See Comment 5 Laboratory test 02/13/2018 [facility] TSH (Thyroid 1.09 mcIU/mL N 0.34-5.[address] Stim Horm) [place] [address] [phone] Comp Metabolic 01/16/2018 [facility] Sodium 140 mmol/L N 135- [address] [place] [address] [phone] Potassium 3.9 mmol/L N 3.5-5.0 Chloride 102 mmol/L N 101-111 Co2 Carbon Dioxide 29 mmol/L N 22-32 Anion Gap 9 mmol/L N 2-11 Glucose 98 mg/dL N 70-100 Blood Urea Nitrogen 15 mg/dL N 6-24 Creatinine 0.76 mg/dL N 0.51-0.95 BUN/Creatinine Ratio 19.7 N 8-20 Calcium 9.9 mg/dL N 8.6-10.3 Total Protein 6.6 g/dL N 6.4-8.9 Albumin 4.2 g/dL N 3.2-5.2 Globulin 2.4 g/dL N 2-4 Albumin/Globulin Ratio 1.8 N 1-3 Total Bilirubin 0.50 mg/dL N 0.2-1.0 Alkaline Phosphatase 73 U/L N 34-104 Alt 27 U/L N 7-52 Ast 33 U/L N 13-39 Egfr Non- 73.6 >60 Egfr 94.7 >60 6 CBC Auto Diff 01/16/2018 [facility] White Blood 6.4 10^3/uL N 3.5-10.[address] [place] [address] [phone] Red Blood Count 4.51 10^6/uL N 4.00-5.40 Hemoglobin 14.9 g/dL N 12.0-16.0 Hematocrit 44 % N 35-47 Mean Corpuscular Volume 98 fL High 80-97 Mean Corpuscular Hemoglobin 33 pg High 27-31 Mean Corpuscular HGB Conc 34 g/dL N 31-36 Red Cell Distribution Width 14 % N 10.5-15 Platelet Count 231 10^3/uL N 150-450 Mean Platelet Volume 8.2 um3 N 7.4-10.4 Abs Neutrophils 5.0 10^3/uL N 1.5-7.7 Abs Lymphocytes 0.8 10^3/uL Low 1.0-4.8 Abs Monocytes 0.5 10^3/uL N 0-0.8 Abs Eosinophils 0.1 10^3/uL N 0-0.6 Abs Basophils 0 10^3/uL N 0-0.2 Abs Nucleated RBC 0 10^3/uL Granulocyte % 77.8 % N 38-83 Lymphocyte % 12.2 % Low 25-47 Monocyte % 8.1 % High 0-7 Eosinophil % 1.2 % N 0-6 Basophil % 0.7 % N 0-2 Nucleated Red Blood Cells % 0 Laboratory test 01/16/2018 [facility] Lyme Disease Positive Negative [address] [place] [address] [phone] Lyme Western Blot 01/16/2018 [facility] Lyme Disease Negative Negative [address] [place] [address] [phone] Lyme Disease IgG Bands Present p41,p39 kDa Lyme Disease IgM Ab WB Positive Abnormal Negative Lyme Disease IgM Bands Present p41,p39 kDa Lyme Disease Interpretation See Comment 8 Lipid Profile 09/23/2017 [facility] Triglycerides 85 mg/dL 9 (Trig/Chol/HDL) [address] [place] [address] [phone] Cholesterol 224 mg/dL 10 HDL Cholesterol 62.5 mg/dL 11 LDL Cholesterol 145 mg/dL 12 Laboratory test 09/23/2017 [facility] Glucose 83 mg/dL N 70- [address] [place] [address] [phone] Urine Culture And 08/24/2017 [facility] Urine SEE RESULT 13 , Sensitivities [address] Culture BELOW 14 [place] [address] [phone] Poc Urinalysis 08/24/2017 [facility] Poc Negative Negative [address] Glucose, [place] [address] Urine [phone] Poc Bilirubin, Urine Negative Negative Poc Ketone, Urine Trace Abnormal Negative Poc Specific Marland, Urine 1.015 N 1.010-1.030 Poc Blood, Urine Negative Negative Poc pH, Urine 7.0 N 5-9 Poc Protein, Urine Negative Negative Poc Urobilinogen, Urine 0.2 Negative Poc Nitrite, Urine Negative Negative Poc Leukocytes, Urine Trace Abnormal Negative Poc Color, Urine Yellow Poc Clarity, Urine Clear 15 Laboratory test 10/20/2016 [facility] Vitamin D 44.1 ng/mL N 30-50 finding 101 [facility] Total 25(Oh) [place] [address] [phone] TSH (Thyroid Stim Horm) 1.10 mcIU/mL N 0.34-5.60 Vitamin B12 1335 pg/mL High 180-914 16 Lipid Profile 09/20/2016 [facility] Triglycerides 75 mg/dL N 17 (Trig/Chol/HDL) [address] [place] [address] [phone] Cholesterol 223 mg/dL N 18 HDL Cholesterol 75.2 mg/dL N 19 LDL Cholesterol 133 mg/dL N 20 Laboratory test 09/20/2016 [facility] Glucose 80 mg/dL N 70- 100 finding [address] [place] [address] [phone] Basic Metabolic Panel 04/18/2015 [facility] Sodium 142 mmol/L N 133-145 [address] [place] [address] [phone] Potassium 4.1 mmol/L N 3.5-5.0 Chloride 104 mmol/L N 101-111 Co2 Carbon Dioxide 32 mmol/L N 22-32 Anion Gap 6 mmol/L N 2-11 Glucose 84 mg/dL N 70-100 Blood Urea Nitrogen 16 mg/dL N 6-24 Creatinine 0.74 mg/dL N 0.51-0.95 BUN/Creatinine Ratio 21.6 High 8-20 Calcium 9.9 mg/dL N 8.6-10.3 Egfr Non- 76.5 N >60 Egfr 98.4 N >60 21 Laboratory test finding 04/18/2015 [facility] Cortisol 17.14 ?g/ dL N 22 [address] [place] [address] [phone] Magnesium 2.2 mg/dL N 1.9-2.7 Laboratory 04/09/2015 [facility] Surgical SEE RESULT [address] [place] [address] [phone] Factor 5 04/03/2015 [facility] Factor V Heterozygous N Negative Leiden [address] [place] [address] Mutation [phone] Factor V Leiden Interpretation See Comment N 24 Factor V Leiden Reviewed By Abril Noel M.D. N 25 Laboratory test 04/03/2015 [facility] Factor V 129 % N 70 - [address] [place] [address] [phone] Vitamin D, 25 07/03/2013 [facility] 25-Hydroxy <4.[address] Vitamin D2 ng/[place] [address] [phone] 25-Hydroxy Vitamin D3 40 ng/mL 25-Hydroxy Vitamin D Total 40 ng/mL 27 Basic Metabolic Panel 07/03/2013 [facility] Sodium 141 mmol/L 133-[address] [place] [address] [phone] Potassium 3.7 mmol/L 3.5-5.0 Chloride 105 mmol/L 101-111 Co2 Carbon Dioxide 31.0 mmol/L 22-32 Anion Gap 5.0 mmol/L 2-11 Glucose 88 mg/dL 70-100 Blood Urea Nitrogen 17 mg/dL 6-24 Creatinine 0.70 mg/dL 0.50-1.40 BUN/Creatinine Ratio 24.3 High 8-20 Calcium 9.9 mg/dL 8.1-9.9 Egfr Non- 81.8 >60 Egfr 105.2 >60 28 Laboratory test 07/03/2013 [facility] Vitamin B12 739 pg/mL 180-[address] [place] [address] [phone] TSH (Thyroid Stimulating Horm) 1.85 miu/mL 0.34-5.60 CBC Auto Diff 07/03/2013 [facility] White Blood 6.5 10^3/uL 4.8-10.[address] [place] [address] [phone] Red Blood Count 4.49 10^6/uL 4.0-5.4 Hemoglobin 14.6 g/dL 12.0-16.0 Hematocrit 44 % 35-47 Mean Corpuscular Volume 99 fL High 80-97 Mean Corpuscular Hemoglobin 33 pg High 27-31 Mean Corpuscular HGB Conc 33 g/dL 31-36 Red Cell Distribution Width 14 % 10.5-15 Platelet Count 253 10^3/uL 150-450 Mean Platelet Volume 9 um3 7.4-10.4 Abs Neutrophils 4.4 10^3/uL 1.5-7.7 Abs Lymphocytes 1.3 10^3/uL 1.0-4.8 Abs Monocytes 0.6 10^3/uL 0-0.8 Abs Eosinophils 0.1 10^3/uL 0-0.6 Abs Basophils 0.1 10^3/uL 0-0.2 Abs Nucleated RBC 0 10^3/uL Granulocyte % 68.1 % 38-83 Lymphocyte % 19.9 % Low 25-47 Monocyte % 8.9 % 1-9 Eosinophil % 2.1 % 0-6 Basophil % 1.0 % 0-2 Nucleated Red Blood Cells % 0 Acid Fast Smear 05/03/2013 [facility] Acid Fast Stain (SEE NOTE ) [address] - [place] [address] [phone] Laboratory test 05/03/2013 [facility] Fungal Cult - (SEE NOTE) [address] [place] [address] [phone] Mycobacterial Culture See Comment 31 Fungal Cult 05/03/2013 [facility] Fungal Cult - (SEE NOTE) 32 Other Sources [address] [place] [address] [phone] Basic Metabolic 03/28/2013 [facility] Sodium 142 mmol/L 133- [address] 5 [place] [address] [phone] Potassium 4.1 mmol/L 3.5-5.0 Chloride 105 mmol/L 101-111 Co2 Carbon Dioxide 30.0 mmol/L 22-32 Anion Gap 7.0 mmol/L 2-11 Glucose 89 mg/dL 70-100 Blood Urea Nitrogen 19 mg/dL 6-24 Creatinine 0.70 mg/dL 0.50-1.40 BUN/Creatinine Ratio 27.1 High 8-20 Calcium 10.1 mg/dL High 8.1-9.9 Egfr Non- 82.0 >60 Egfr 105.5 >60 33 Cardiolipin 03/28/2013 [facility] Cardiolipin IgG <4.0 GPL 34 Igg,Igm,Iga AB [address] [place] [address] [phone] Cardiolipin IgM <4.0 MPL 35 Cardiolipin IgA <4.0 APL 36 Laboratory test 03/28/2013 [facility] Protein C 130 % 70 - 150 [address] [place] [address] [phone] Protein C Antigen 124 % 70-150 38 Protein S Activity 79 % 65 - 160 39 Protein S Antigen 83 % 65 - 160 40 Laboratory test 02/15/2013 [facility] Blood Urea 16 mg/dL 6- [address] [place] [address] [phone] Creatinine 02/15/2013 [facility] Creatinine 0.70 mg/dL 0.50- 1.[address] [place] [address] [phone] Egfr Non- 82.0 >60 Egfr 105.5 >60 41 Culture 02/13/2013 [facility] Sputum Culture (SEE 42 Sputum/Sensitivity [address] Gram Stain NOTE) [place] [address] [phone] Protime W/ Inr 02/12/2013 [facility] Prothrombin Time 47.2 Inr 3.9 Order 02/09/2013 [facility] peak flow see VS Nebulizer Treatment done Protime W/ Inr 02/05/2013 [facility] Prothrombin Time 32.5 Inr 2.7 Protime W/ Inr 01/29/2013 [facility] Prothrombin Time 18.6 Inr 1.6 Protime W/ Inr 01/25/2013 [facility] Prothrombin Time 14.1 Inr 1.2 Protime W/ Inr 01/18/2013 [facility] Prothrombin Time 31.3 Inr 2.6 Protime W/ Inr 01/15/2013 [facility] Prothrombin Time 43.7 Inr 3.6 Protime W/ Inr 01/12/2013 [facility] Prothrombin Time 30.1 Inr 2.5 Protime W/ Inr 12/29/2012 [facility] Prothrombin Time 28.0 Inr 2.3 Lupus 12/20/2012 [facility] Prothrombin 20.5 sec Abnormal 43 Anticoagulant AB [address] Time(Lac) [place] [address] [phone] Lac Inr 1.8 Lac PT Mix 1:1 11.4 sec 44 Lac Aptt 35 sec 26 - 36 Lac DRVVT Screen Ratio 0.9 ratio 0.0 - 1.1 Lup Hexthrombin Time (Bovine) 20 sec 15 - 23 45 Lupus Anticoagulant Interpreta See Comment 46 Lupus Anticoagulant Review By Nadeem Angel <SEE NOTE> 47 Special Coagulation Interp Performed 48 Laboratory 12/20/2012 [facility] Immunoglobulin G 695 Abnormal 767 - [address] mg/dL 1590 [place] [address] [phone] Immunoglobulin M 130 mg/dL 37 - 286 50 Immunoglobulin A 76 mg/dL 61 - 356 51 Anti-Thrombin III Complex 3.3 ng/mL <4.3 52 Vitamin D 1,25-Dihydroxy 41 pg/mL 18-78 53 Laboratory test finding 12/20/2012 [facility] Inr 1.60 High 0.87-0.[address] [place] [address] [phone] TSH (Thyroid Stimulating Horm) 1.71 miu/mL 0.34-5.60 Protime W/ Inr 12/07/2012 [facility] Prothrombin Time 28.8 Inr 2.4 Laboratory test 11/30/2012 [facility] Inr 2.3 /PT 27.7 finding Lipid Profile 11/28/2012 [facility] Triglycerides 44 mg/dL 40 -200 (Trig/Chol/HDL) [address] [place] [address] [phone] Cholesterol 234 mg/dL High Less than 200 HDL Cholesterol 70 mg/dL High 40-60 54 Cholesterol/HDL Ratio 3.3 Average 1-4.44 LDL Cholesterol 155.2 mg/dL High Less Than 100 55 Factor 5 11/28/2012 [facility] Factor V Heterozygous Negative Leiden [address] [place] [address] Mutation [phone] Factor V Leiden Interpretation See Comment 56 Factor V Leiden Reviewed By See Comment 57 Factor II 11/28/2012 [facility] Prothrombin Negative Negative (Prothrombin) [address] [address] [phone] Prothrombin [id number] Interp See Comment 58 Prothrombin Mutation Review By See Comment 59 Laboratory test 11/28/2012 [facility] Homocysteine 9 mcmol/L [address] [place] [address] [phone] Protime W/ Inr 11/27/2012 [facility] Prothrombin Time 31.6 Inr 2.6 Laboratory test 11/09/2012 [facility] C Reactive 0.7 mg/dL High Less than finding [address] Protein 0.5 [place] [address] [phone] Laboratory test 11/09/2012 [facility] Inr 0.83 Low 0.87-0.[address] [place] [address] [phone] D Dimer Quantitative < 200 ng/mL Less Than 230 61 CBC Auto Diff 11/09/2012 [facility] White Blood 5.7 10^3/uL 4.8-10.[address] [place] [address] [phone] Red Blood Count 4.40 10^6/uL 4.0-5.4 Hemoglobin 14.6 g/dL 12.0-16.0 Hematocrit 44 % 35-47 Mean Corpuscular Volume 99 fL High 80-97 Mean Corpuscular Hemoglobin 33 pg High 27-31 Mean Corpuscular HGB Conc 34 g/dL 31-36 Red Cell Distribution Width 14 % 10.5-15 Platelet Count 208 10^3/uL 150-450 Mean Platelet Volume 8 um3 7.4-10.4 Abs Neutrophils 3.8 10^3/uL 1.5-7.7 Abs Lymphocytes 1.1 10^3/uL 1.0-4.8 Abs Monocytes 0.5 10^3/uL 0-0.8 Abs Eosinophils 0.3 10^3/uL 0-0.6 Abs Basophils 0.1 10^3/uL 0-0.2 Abs Nucleated RBC 0.01 10^3/uL Granulocyte % 66.3 % 38-83 Lymphocyte % 19.4 % Low 25-47 Monocyte % 8.3 % 1-9 Eosinophil % 5.1 % 0-6 Basophil % 0.9 % 0-2 Nucleated Red Blood Cells % 0.1 Comp Metabolic Panel 11/09/2012 [facility] Sodium 141 mmol/L 133-[address] [place] [address] [phone] Potassium 3.9 mmol/L 3.5-5.0 Chloride 106 mmol/L 101-111 Co2 Carbon Dioxide 29.0 mmol/L 22-32 Anion Gap 6.0 mmol/L 2-11 Glucose 97 mg/dL 70-100 Blood Urea Nitrogen 22 mg/dL 6-24 Creatinine 0.60 mg/dL 0.50-1.40 BUN/Creatinine Ratio 36.7 High 8-20 Calcium 9.9 mg/dL 8.1-9.9 Total Protein 6.8 g/dL 6.2-8.1 Albumin 4.3 g/dL 3.2-5.2 Globulin 2.5 g/dL 2-4 Albumin/Globulin Ratio 1.7 1-3 Total Bilirubin 0.6 mg/dL 0.4-1.5 Alkaline Phosphatase 71 U/L 30-110 Alt 32 U/L 14-54 Ast 36 U/L 12-42 Egfr Non- 98.0 >60 Egfr 126.0 >60 62 CBC Auto Diff 03/17/2012 [facility] White Blood 5.2 CUMM 4.8- 10.[address] [place] [address] [phone] Red Cell Count 4.32 CUMM 4.2-5.4 Hemoglobin 14.8 g/dL 12.0-16.0 Hematocrit 43 % 35-47 Mean Corpuscular Volume 99 um3 High 79-97 Mean Corpuscular Hemoglob 34 pg High 27-31 Mean Corpuscular HGB Cone 35 g/dL 32-36 Redcell Distribution WDTH 14 % 10.5-15 Platelet Count 231 CUMM 150-450 Mean Platelet Volume 8.5 um3 7.4-10.4 Gran % 62.3 % 38-83 Lymph % 24.1 % 20-45 Mononuclear % 10.9 % High 1-9 Eosinophil % 1.8 % 0-6 Basophil % 0.9 % 0-2 Abs Lymphs 1.2 1.0-4.8 Abs Mononuclear 0.6 0-0.8 Absolute Neutrophil Count 3.2 1.5-7.7 Abs Eosinophils 0.1 0-0.6 Abs Basophils 0 0-0.2 Laboratory test 03/17/2012 [facility] Monospot NEGATIVE Negative finding [address] [place] [address] [phone] Rapid Strep A 03/17/2012 [facility] M [address] --- <[place] [address] NOTE> [phone] Laboratory test 03/17/2012 [facility] Troponin-I 0 NG/ML 0- 0.[address] [place], [place] [address] [phone] CKMB 03/17/2012 [facility] CKMB In NG/ML 2.0 NG/ML 0.3-4.0 [address] [place] [address] [phone] % CKMB 2 %MB 0-9 65 Laboratory test 03/17/2012 [facility] CPK (Creatine 93 U/L 0- 170 finding 101 [facility] Kinase) [place] [address] [phone] Comp Metabolic 03/17/2012 [facility] Sodium 141 135-[address] mmol/[place] [address] [phone] Potassium 3.8 mmol/L 3.5-5.0 Chloride 105 mmol/L 101-111 Co2 (Carbon Dioxide) 30.0 mmol/L 22-32 Anion Gap 6.0 mmol/L 2-11 66 Glucose 96 mg/dL 70-100 BUN 19 mg/dL 6-24 Creatinine 0.7 mg/dL 0.50-1.40 One Over Creatinine 1.42 BUN/Creatinine Ratio 27.1 High 8-20 Calcium 9.7 mg/dL 8.1-9.9 Total Protein 7.0 GM/DL 6.2-8.1 Albumin 4.2 GM/DL 3.2-5.2 Globulin 2.8 GM/DL 2-4 Albumin/Globulin Ratio 1.5 1-3 Bilirubin Total 0.7 mg/dL 0.4-1.5 67 Alkaline Phosphatase 78 U/L 30-110 Alt (SGPT) 31 U/L 14-54 Ast (Sgot) 40 U/L 12-42 eGFR Non- 82.3 > 60 eGFR 105.8 > 60 68 Surgical 10/22/2011 [facility] Surgical [address] Pathology <SEE NOTE> [place] [address] [phone] Laboratory 08/31/2011 [facility] Iron Total 129 g/dL 28-[address] 70 [place] [address] [phone] Ferritin 67 NG/ML 11.0-307 Vitamin B12 588 pg/mL 180-914 Folic Acid 24.9 NG/ML See Below 71 TSH 1.19 MIU/ML 0.34-5.60 Manual Differential 05/06/2011 [facility] Polysegmented 78 % 38-[address] [place]rophil [place] [address] [phone] Band Neutrophil 2 % 0-8 Lymphocyte 11 % Low 25-47 Monocyte 5 % 0-13 Eosinophil 4 % 0-6 Absolute Neutrophil Count 5.2 Anisocytosis SLIGHT Macrocytosis SLIGHT CBC Auto Diff 05/06/2011 [facility] White Blood 6.5 CUMM 4.8- 10.[address] Count [place] [address] [phone] Red Cell Count 4.11 CUMM Low 4.2-5.4 Hemoglobin 14.0 g/dL 12.0-16.0 Hematocrit 40 % 35-47 Mean Corpuscular Volume 98 um3 High 79-97 Mean Corpuscular Hemoglob 34 pg High 27-31 Mean Corpuscular HGB Cone 35 g/dL 32-36 Redcell Distribution WDTH 13 % 10.5-15 Platelet Count 247 CUMM 150-450 Mean Platelet Volume 9.6 um3 7.4-10.4 72 Basic Metabolic Panel 05/06/2011 [facility] Sodium 139 mmol/L 135-[address] [place] [address] [phone] Potassium 4.1 mmol/L 3.5-5.0 Chloride 105 mmol/L 101-111 Co2 (Carbon Dioxide) 28.0 mmol/L 22-32 Anion Gap 6.0 mmol/L 2-11 73 Glucose 111 mg/dL High 70-100 BUN 18 mg/dL 6-24 Creatinine 0.6 mg/dL 0.50-1.40 One Over Creatinine 1.66 BUN/Creatinine Ratio 30.0 High 8-20 Calcium 9.8 mg/dL 8.1-9.9 eGFR Non- 98.5 > 60 eGFR 126.7 > 60 74 Laboratory test 05/06/2011 [facility] Erythrocyte Sed 19 MM/HR 0-[address] [place] [address] [phone] Celiac Panel 09/05/2009 [facility] Endomysial Abs Negative Negative [address] [place] [address] [phone] Gliadin Igg <1.0 U () 76 Gliadin Iga <1.0 U () 77 Reticulin AB Negative Negative 78 Surgical 09/05/2009 [facility] Surgical [address] Pathology <SEE NOTE> [place] [address] [phone] Laboratory 07/24/2009 [facility] Campylobacter NF [address] [place] [address] [phone] Stool Cult Sensitivity NF 81 Shiga Toxin 1 And 2 (Ehec) N^NEGATIVE BY IM <SEE NOTE> 82 O P: Giardia/Crypto Screen Giardia and cryp <SEE NOTE> 83 Stool Specimen 07/24/2009 [facility] Stool Specimen TNP [address] [place] [address] [phone] Creatinine 07/02/2009 [facility] Creatinine 0.90 0.50-1 mg/dL .40 [place] [address] [phone] One Over Creatinine 1.10 eGFR Non- 65.8 > 60 eGFR 79.6 > 60 85 Laboratory test 07/02/2009 [facility] BUN 16 mg/dL 6-[address] [place] [address] [phone] Laboratory test 06/24/2009 [facility] Cytology [address] ---- <[place] [address] NOTE> [phone] Laboratory test 01/07/2009 [facility] Iron Total 121 g/dL 28-[address] [place] [address] [phone] Ferritin 59 NG/ML 11.0-307 Vitamin B12 560 pg/mL 180-914 Iron & Iron 11/18/2008 [facility] Iron Total 175 g/dL High 28-170 Binding Capacity [address] [place] [address] [phone] Unsaturated Iron Binding 239 g/dL Total Iron Binding Capacity 414 g/dL 250-450 % Iron Saturation 42 % 15-55 CBC With 11/18/2008 [facility] White Blood 4.7 CUMM Low 4.8- 10.8 Electronic Diff [address] [place] [address] [phone] Red Cell Count 4.39 CUMM 4.2-5.4 Hemoglobin 14.6 g/dL 12.0-16.0 Hematocrit 43 % 35-47 Mean Corpuscular Volume 98 um3 High 79-97 Mean Corpuscular Hemoglob 33 pg High 27-31 Mean Corpuscular HGB Cone 34 g/dL 32-36 Redcell Distribution WDTH 13 % 10.5-15 Platelet Count 296 CUMM 150-450 Mean Platelet Volume 8.4 um3 7.4-10.4 Gran % 71.1 % 38-83 Lymph % 20.0 % Low 25-47 Mononuclear % 6.7 % 1-9 Eosinophil % 1.4 % 0-6 Basophil % 0.8 % 0-2 Abs Lymphs 0.9 Low 1.0-4.8 Abs Mononuclear 0.3 0-0.8 Absolute Neutrophil Count 3.4 1.5-7.7 Abs Eosinophils 0.1 0-0.6 Abs Basophils 0 0-0.2 Protein 11/18/2008 [facility] Albumin 3.51 GM/DL 3.0-4.35 Electrophoresis Serum [address] [place] [address] [phone] Alpha 1 0.20 GM/DL 0.09-0.33 Alpha 2 0.97 GM/DL 0.59-1.18 Beta 0.83 GM/DL 0.68-1.02 Gamma 0.80 GM/DL 0.76-1.60 Albumin % 55.7 % 46-63 Alpha 1 % 3.2 % 1.2-5.3 Alpha 2 % 15.4 % 9-17 Beta % 13.2 % 10-16 Gamma % 12.7 % 12-22 A/G Ratio 1.3 0.9-2 Total Protein 6.3 GM/DL 6.2-8.1 Spep Comments (SEE NOTE) 87 Comp Metabolic Panel 11/18/2008 [facility] Sodium 140 mmol/L 135-145 [address] [place] [address] [phone] Potassium 4.5 mmol/L 3.5-5.0 Chloride 103 mmol/L 101-111 Co2 (Carbon Dioxide) 31.0 mmol/L 22-32 Anion Gap 6.0 mmol/L 2-11 88 Glucose 86 mg/dL 70-100 89 BUN 12 mg/dL 6-24 Creatinine 0.70 mg/dL 0.50-1.40 One Over Creatinine 1.40 BUN/Creatinine Ratio 17.1 8-20 Calcium 9.9 mg/dL 8.1-9.9 90 Total Protein 6.4 GM/DL 6.2-8.1 Albumin 4.2 GM/DL 3.2-5.2 Globulin 2.2 GM/DL 2-4 Albumin/Globulin Ratio 1.9 1-3 Bilirubin Total 0.7 mg/dL 0.4-1.5 Alkaline Phosphatase 74 U/L 30-110 Alt (SGPT) 31 U/L 14-54 Ast (Sgot) 31 U/L 12-42 Vitamin D, 25 11/18/2008 [facility] 25-Hydroxy Vitamin <4.0 ng/ mL () Hydroxy [address] [address] [phone] 25-Hydroxy Vitamin D3 28 ng/mL () 25-Hydroxy Vitamin D Total 28 ng/mL () 91 Vitamin B12 And 11/18/2008 [facility] Vitamin B12 646 pg/mL 180-914 Folate Serum [address] [place] [address] [phone] Folic Acid > 20.0 NG/ML High 2-16 1 Because ethnic data is not always readily available, this report includes an eGFR for both -Americans and non- Americans. The National Kidney Disease Education Program (NKDEP) does not endorse the use of the MDRD equation for patients that are not between the ages of 18 and 70, are , have extremes of body size, muscle mass, or nutritional status, or are non- or non-. According to the National Kid[employer] Foundation, irrespective of diagnosis, the stage of the disease is based on the level of kidney function: Stage Description GFR(mL/min/1.73 m(2)) 1 Kidney damage with normal or decreased GFR 90 2 Kidney damage with mild decrease in GFR 60-89 3 Moderate decrease in GFR 30-59 4 Severe decrease in GFR 15-29 5 Kidney failure <15 (or dialysis) 2 ADDITIONAL INFORMATION This test was developed and its performance characteristics determined by [facility] in a manner consistent with CLIA requirements. This test has not been cleared or approved by the [place]. Food and Drug Administration. 3 ADDITIONAL INFORMATION This test was developed and its performance characteristics determined by [facility] in a manner consistent with CLIA requirements. This test has not been cleared or approved by the U.S. Food and Drug Administration. 4 ADDITIONAL INFORMATION This test was developed and its performance characteristics determined by [facility] in a manner consistent with CLIA requirements. This test has not been cleared or approved by the U.S. Food and Drug Administration. Test Performed by: [facility] [place] [address] 5 A negative result does not exclude infection with Borrelia burgdorferi. Serologic testing as per CDC guidelines may be indicated. ADDITIONAL INFORMATION This test was developed and its performance characteristics determined by [facility] in a manner consistent with CLIA requirements. This test has not been cleared or approved by the U.S. Food and Drug Administration. Test Performed by: [facility] - [address] [address] 6 Because ethnic data is not always readily available, this report includes an eGFR for both -Americans and non- Americans. The National Kidney Disease Education Program (NKDEP) does not endorse the use of the MDRD equation for patients that are not between the ages of 18 and 70, are , have extremes of body size, muscle mass, or nutritional status, or are non- or non-. According to the National Kidney Foundation, irrespective of diagnosis, the stage of the disease is based on the level of kidney function: Stage Description GFR(mL/min/1.73 m(2)) 1 Kidney damage with normal or decreased GFR 90 2 Kidney damage with mild decrease in GFR 60-89 3 Moderate decrease in GFR 30-59 4 Severe decrease in GFR 15-29 5 Kidney failure <15 (or dialysis) 7 Not diagnostic. Supplemental testing by immunoblot has been ordered by reflex. Test Performed by: [facility] [place] [address] 8 Consistent with early infection with Borrelia burgdorferi. A new serum specimen should be submitted in 14-21 days to demonstrate seroconversion of IgG. IgM blot criteria is of diagnostic utility only during the first 4 weeks of early Lyme disease. ADDITIONAL INFORMATION CDC criteria require >=5 bands for IgG or >=2 bands for IgM for the Immunoblot to be considered positive. Bands (e.g.,p41) may be detected in patients without Lyme disease, and patterns not meeting the CDC criteria should be interpreted with caution. Immunoblot should be ordered only on specimens that are positive or equivocal by a FDA-licensed Lyme disease antibody screening test (e.g., EIA). Test Performed by: [facility] [place] [facility] [address] 9 Desirable: <150 Borderline High: 150-199 High: 200-499 Very High: >500 10 Desirable: <200 Borderline High: 200-239 High: >239 11 Low: <40 Desirable: 40-60 High: >60 12 Desirable: <100 Near Optimal: 100-129 Borderline High: 130-159 High: 160-189 Very High: >189 13 [id number] 14 SEE RESULT BELOW Name: ELHAM COLIN : [address]: Concepcion Cherry MD Acct: [id number] Unit: [id number] AGE: 77 Location: [facility] Re08/24/17 SEX: F Status: DEP ER SPEC: [id number] RUT: 08/24/[address] [facility] [address]: Concepcion Cherry MD REQ: [id number] RECD: 08/24/17 STATUS: QUEENIE HOOK DR: Tony Estrada MD _ SOURCE: URINE SPDESC: ORDERED: Urine Culture COMMENTS: [id number] Procedure Result Reported Site Urine Culture Final 01933 ML No Growth (<1,000 CFU/mL) * ML - MAIN LAB ([facility]) . END OF REPORT * ML=Testing performed at Main Lab DEPARTMENT OF PATHOLOGY, [address] [place] [address] Huang Zamudio M.D. Director [facility] # [id number] 15 Ditch Rider: [id number] Normal Range 180 to 914 Indeterminate Range 145 to 180 Deficient Range <145 17 Desirable <150 Borderline high 150-199 High 200-499 Very High >500 18 Desirable <200 Borderline high 200-239 High >239 19 Low <40 Desirable: 40-60 High: >60 20 Desirable: <100 mg/dL Near Optimal: 100-129 mg/dL Borderline High: 130-159 mg/dL High: 160-189 mg/dL Very High: >189 mg/dL 21 Because ethnic data is not always readily available, this report includes an eGFR for both -Americans and non- Americans. The National Kidney Disease Education Program (NKDEP) does not endorse the use of the MDRD equation for patients that are not between the ages of 18 and 70, are , have extremes of body size, muscle mass, or nutritional status, or are non- or non-. According to the National Kidney Foundation, irrespective of diagnosis, the stage of the disease is based on the level of kidney function: Stage Description GFR(mL/min/1.73 m(2)) 1 Kidney damage with normal or decreased GFR 90 2 Kidney damage with mild decrease in GFR 60-89 3 Moderate decrease in GFR 30-59 4 Severe decrease in GFR 15-29 5 Kidney failure <15 (or dialysis) 22 AM 8.7-22.4 PM <10 23 SEE RESULT BELOW Name: ELHAM COLIN : [address]: Kimo Vang MD Acct: [id number] Unit: [id number] AGE: 74 Location: ENDO Re04/09/15 SEX: F Status: REG REF SPEC: [id number] RUT: 04/09/15-[address] [facility] [address]: Kimo Vang MD REQ: [id number] RECD: 04/09/15 STATUS: ASAD HOOK DR: Tony Estrada MD _ ORDERED: LEVEL IV/2 FINAL DIAGNOSIS 1. Colon, right, biopsy: -- Benign colonic mucosa with no significant pathologic abnormalities. -- No evidence of microscopic colitis. 2. Colon, cecum, biopsy: -- Tubular adenomas. -- No high grade dysplasia or malignancy. CLINICAL HISTORY Screening colonoscopy with change in bowel habits/diarrhea POST-OPERATIVE DIAGNOSIS Screening colonoscopy into terminal ileum, prep good - 2 small polyps removed , otherwise normal colonoscopy. Biopsies obtained to evaluate for microscopic colitis. Two small polyps removed GROSS DESCRIPTION 1. The specimen is received in formalin labeled, Right Colon Biopsies, and consists of a 1.1 x 0.5 x 0.1 cm aggregate of multiple almanzar-pink irregular soft tissue fragments, which is submitted entirely in one cassette. 2. The specimen is received in formalin labeled, Cecal Polyps, and consists of a 0.6 x 0.5 x 0.2 cm aggregate of multiple almanzar-pink irregular soft tissue fragments, which is submitted entirely in one cassette. Signed (signature on file) Elham Mendoza MD 05/15 1226 END OF REPORT * ML=Testing performed at [facility] DEPARTMENT OF PATHOLOGY, [address] [place] [address] Huang Zamudio M.D. Director [facility] # [id number] 24 This individual DOES have the factor V Leiden (R506Q) mutation on ONE allele, (heterozygous carrier). The factor V Leiden (R506Q) mutation is a risk factor for venous thromboembolism and recurrent miscarriage, and possibly a risk factor for complications of and for arterial thrombosis. If clinically indicated, suggest Coagulation Consultation 89548 (Thrombophilia Profile) to complete the evaluation for an inherited or acquired thrombosing disorder (i.e., thrombophilia). Consider genetic consultation and counseling of potentially affected family members regarding laboratory testing. ADDITIONAL INFORMATION This test is a direct mutation analysis using PCR amplification, signal generation and release by cleavage of sequence specific alleles ([employer], [employer], [place], [place]). 25 Test Performed by: [place] [address] Legal Secretary Receptionist: Brendon Castellano II, M.D., Ph.D. 26 Test Performed by: [address] [address] Legal Secretary Receptionist: Brendon Castellano II, M.D., Ph.D. 27 -- REFERENCE VALUE -- 25-HYDROXY D TOTAL (D2+D3) Optimum levels in the healthy population are 20-50, patients with bone disease may benefit from higher levels within this range. Test Performed by: [facility] - [address] [address] Legal Secretary Receptionist: Fadi Jewell III, M.D. 28 Because ethnic data is not always readily available, this report includes an eGFR for both -Americans and non- Americans. The National Kidney Disease Education Program (NKDEP) does not endorse the use of the MDRD equation for patients that are not between the ages of 18 and 70, are , have extremes of body size, muscle mass, or nutritional status, or are non- or non-. According to the National Kidney Foundation, irrespective of diagnosis, the stage of the disease is based on the level of kidney function: Stage Description GFR(mL/min/1.73 m(2)) 1 Kidney damage with normal or decreased GFR 90 2 Kidney damage with mild decrease in GFR 60-89 3 Moderate decrease in GFR 30-59 4 Severe decrease in GFR 15-29 5 Kidney failure <15 (or dialysis) 29 RUN DATE: 05/03/13 [facility] LAB LIVE PAGE 1 RUN TIME: [address] [place] [address] Specimen Inquiry Name: ELHAM COLIN : [address]: Aneesh Fofana MD Acct: [id number] Unit: [id number] AGE: 72 Location: [facility] Re05/03/13 SEX: F Status: REG REF SPEC: [id number] RUT: 05/03/13-[address]: Ct THOMPSON Aneesh Stearns REQ: [id number] RECD: 05/03/13 STATUS: QUEENIE HOKO DR: Tony Estrada MD _ SOURCE: RESP [facility]: ORDERED: Acid Fast Stain Procedure Result Verified Site Acid Fast Stain - Direct Final 05/03/13- 1610 ML AFB Smear Result No Acid Fast Bacillus Present (Negative) Preparation By Direct Smear Due to limited sensitivity of the smear, results should be used as an adjunct in evaluating the patient's status and cultural examination is highly recommended for diagnosis. END OF REPORT * ML=Testing performed at Main Lab DEPARTMENT OF PATHOLOGY, [address] [place] [address] Huang Zamudio M.D. Director [facility] Permit #[id number] 30 RUN DATE: 05/21/13 [facility] LAB LIVE PAGE 1 RUN TIME: [address] [place] [address] Specimen Inquiry Name: ELHAM COLIN : [address]: Aneesh Fofana MD Acct: [id number] Unit: [id number] AGE: 72 Location: [facility] Re05/03/13 SEX: F Status: REG REF SPEC: [id number] RUT: 05/03/13-[address] [facility] [address]: Aneesh Fofana MD REQ: [id number] RECD: 05/03/13 STATUS: JEAN PAUL HOOK DR: Tony Estrada MD _ SOURCE: RESP SPDESC: ORDERED: Fungal - Other Procedure Result Verified Site Fungal Cult - Other Sources Preliminary 05/21/13- 1418 ML Organism 1 YEAST END OF REPORT * ML=Testing performed at Main Lab DEPARTMENT OF PATHOLOGY, [address] [place] [address] Huang Zamudio M.D. Director [facility] Permit #[id number] 31 SOURCE: SPUTUM MYCOBACTERIAL CULTURE FINAL MYCOBACTERIUM AVIUM COMPLEX Test Performed by: [facility] [place] [place] [address] Legal Secretary Receptionist: Fadi Jewell III, M.D. 32 RUN DATE: 05/28/13 [facility] LAB LIVE PAGE 1 RUN TIME: [address] [place] [address] Specimen Inquiry Name: ELHAM COLIN : [address]: Aneesh Fofana MD Acct: [id number] Unit: [id number] AGE: 72 Location: [facility] Re05/03/13 SEX: F Status: REG REF SPEC: [id number] RUT: 05/03/[address] [facility] [address]: Aneesh Fofana MD REQ: [id number] RECD: 05/03/13 STATUS: QUEENIE HOOK DR: Tony Estrada MD _ SOURCE: RESP SPDESC: ORDERED: Fungal - Other Procedure Result Verified Site Fungal Cult - Other Sources Final 05/28/13- 4258 ML Organism 1 GRACIE ALBICANS END OF REPORT * ML=Testing performed at Main Lab DEPARTMENT OF PATHOLOGY, [address] [place] [address] Huang Zamudio M.D. Director [facility] Permit #[id number] 33 Because ethnic data is not always readily available, this report includes an eGFR for both -Americans and non- Americans. The National Kidney Disease Education Program (NKDEP) does not endorse the use of the MDRD equation for patients that are not between the ages of 18 and 70, are , have extremes of body size, muscle mass, or nutritional status, or are non- or non-. According to the National Kidney Foundation, irrespective of diagnosis, the stage of the disease is based on the level of kidney function: Stage Description GFR(mL/min/1.73 m(2)) 1 Kidney damage with normal or decreased GFR 90 2 Kidney damage with mild decrease in GFR 60-89 3 Moderate decrease in GFR 30-59 4 Severe decrease in GFR 15-29 5 Kidney failure <15 (or dialysis) 34 -- REFERENCE VALUE -- <10.0 (Negative) 35 -- REFERENCE VALUE -- <10.0 (Negative) 36 -- REFERENCE VALUE -- <10.0 (Negative) Test Performed by: [place] [address] Legal Secretary Receptionist: Fadi Jewell III, M.D. 37 Test Performed by: [place] [address] Legal Secretary Receptionist: Fadi Jewell III, M.D. 38 Test Performed by: [place] [address] Legal Secretary Receptionist: Fadi Jewell III, M.D. 39 Heparin levels greater than 1 U/ml, inhibitors of the APTT test system (especially lupus anticoagulant), or inhibitors of bovine factor V (such antibodies that may arise in patients treated with certain bovine topical thrombin preparations) may produce a falsely normal Protein S Activity result. Suggest clinical correlation and if indicated consider repeat assay of Protein S Activity and Antigen in the absence of anticoagulation therapy. Test Performed by: [place] [address] Legal Secretary Receptionist: Fadi Jewell III, M.D. 40 Test Performed by: [place] [address] Legal Secretary Receptionist: Fadi Jewell III, M.D. 41 Because ethnic data is not always readily available, this report includes an eGFR for both -Americans and non- Americans. The National Kidney Disease Education Program (NKDEP) does not endorse the use of the MDRD equation for patients that are not between the ages of 18 and 70, are , have extremes of body size, muscle mass, or nutritional status, or are non- or non-. According to the National Kidney Foundation, irrespective of diagnosis, the stage of the disease is based on the level of kidney function: Stage Description GFR(mL/min/1.73 m(2)) 1 Kidney damage with normal or decreased GFR 90 2 Kidney damage with mild decrease in GFR 60-89 3 Moderate decrease in GFR 30-59 4 Severe decrease in GFR 15-29 5 Kidney failure <15 (or dialysis) 42 RUN DATE: 02/16/13 [facility] LAB LIVE PAGE 1 RUN TIME: 1031 [address] [place], [place] [address] Specimen Inquiry Name: ELHAM COLIN : [address]: Ivan Estrada MD Acct: [id number] Unit: [id number] AGE: 72 Location: [facility] Re02/13/13 SEX: F Status: REG REF SPEC: [id number] RUT: 02/13/13-[address]: Tony Estrada MD REQ: [id number] RECD: 02/13/13 STATUS: COMP _ SOURCE: SPUTUM SPDESC: ORDERED: Sputum Cult/GS QUERIES: Medent Number [id number] Procedure Result Verified Site Sputum Smear Final 02/14/13- 0841 ML 1+ Polys Mixed Morphotypes, resembling Normal Desirae 1+ Gram Negative Bacilli Sputum Culture Final 02/16/13- 1031 ML Organism 1 ENTEROBACTER CLOACAE COMPLEX Quantity 1+ Organism 2 NORMAL DESIRAE Quantity 3+ 1. ENTEROBACTER CLOACAE COMPLEX M.I.C. RX --------- ------ Cefazolin >=64 R Cefepime <=1 S Ceftriaxone <=1 S Ciprofloxacin <=0.25 S Gentamicin <=1 S Imipenem <=0.25 S Levofloxacin <=0.12 S Meropenem <=0.25 S Nitrofurantoin 32 S Tetracycline <=1 S Pipercillin/Tazobactam <=4 S Trimethoprim/Sulfamethoxazole <=20 S Amoxicillin/Clavulanic Acid >=32 R Aztreonam <=1 S CONTINUED ON NEXT PAGE * ML=Testing performed at Main Lab DEPARTMENT OF PATHOLOGY, [address] [place] [address] Huang Zamudio M.D. Director [facility] Permit #[id number] RUN DATE: 02/16/13 [facility] LAB LIVE PAGE 2 RUN TIME: 1031 [address] [place], [place] [address] Specimen Inquiry Patient: DIXIEELHAM Q [id number] (Continued) Specimen: [id number] Collected: 02/13/13-1399 Received: 02/13/13-1729 (Continued) Procedure Result Verified Site Sputum Culture Final (continued) Contact the Microbiology Department for any additional antibiotic reporting. END OF REPORT * ML=Testing performed at [facility] DEPARTMENT OF PATHOLOGY, [address] [place] [address] Huang Zamudio M.D. Director [facility] Permit #[id number] 43 -- REFERENCE VALUE -- 10.3 - 12.8 44 -- REFERENCE VALUE -- 10.3 - 12.8 Test Performed by: [place] [address] Legal Secretary Receptionist: Fadi Jewell III, M.D. 45 Test Performed by: [place] [address] Legal Secretary Receptionist: Fadi Jewell III, M.D. 46 IMPRESSION: No evidence of a lupus anticoagulant (LAC). COMMENTS: Mixing study of prolonged prothrombin time (PT) suggests a coagulation factor deficiency or warfarin effect. The normal activated partial thromboplastin time (APTT) and dilute Ed viper venom time (DRVVT) provide no evidence of a lupus anticoagulant (LAC). 47 Nathan Hawthorne M.D. Test Performed by: [place] [address] Legal Secretary Receptionist: Fadi Jewell III, M.D. 48 Test Performed by: [place] [address] Legal Secretary Receptionist: Fadi Jewell III, M.D. 49 Test Performed by: [place] [address] Legal Secretary Receptionist: Fadi Jewell III, M.D. 50 Test Performed by: [place] [address] Legal Secretary Receptionist: Fadi Jewell III, M.D. 51 Test Performed by: [facility] [address] [address] Legal Secretary Receptionist: Fadi Jewell III, M.D. 52 Pre-analytical conditions such as a difficult draw may spuriously increase test results. Test Performed by: [facility] [address] [address] 53 Test Performed by: [address] [address] Legal Secretary Receptionist: Fadi Jewell III, M.D. 54 HDL Interpretation: Undesirable: High Risk: Less than 40 MG/DL Desirable: Low Risk: Greater than 60 MG/DL 55 LDL Interpretation: Low Risk Optimal Level: LDL Less than 100 MG/DL Near or Above Optimal: LDL 100-129 MG/DL Borderline High Risk: LDL 130-159 MG/DL High Risk: LDL 160-189 MG/DL Very High Risk: LDL Greater than 189 MG/DL 56 This individual DOES have the factor V Leiden (R506Q) mutation on ONE allele, (heterozygous carrier). The factor V Leiden (R506Q) mutation is a risk factor for venous thromboembolism and recurrent miscarriage, and possibly a risk factor for complications of and for arterial thrombosis. If clinically indicated, suggest Coagulation Consultation 87756 (Thrombophilia Profile) to complete the evaluation for an inherited or acquired thrombosing disorder (i.e., thrombophilia). Consider genetic consultation and counseling of potentially affected family members regarding laboratory testing. This test is a direct mutation analysis using PCR amplification, signal generation and release by cleavage of sequence specific alleles ([employer], [employer], [place], [place]). 57 RESULT: Jerome Bonilla M.D., Ph.D. Test Performed by: [address] [address] Legal Secretary Receptionist: Fadi Jewell III, M.D. 58 This individual DOES NOT have the Prothrombin [id number] mutation. Although the Prothrombin F53342L mutation is absent, the individual may have other genetic and environmental risk factors for thrombosis. If clinically indicated, suggest Coagulation Consultation 62803 (Thrombophilia Profile) to complete the evaluation for an inherited or acquired thrombosing disorder (i.e., thrombophilia). Consider genetic consultation and counseling of potentially affected family members regarding laboratory testing. This test is a direct mutation analysis using PCR amplification, signal generation and release by cleavage of sequence specific alleles ([employer], [employer], [place], [place]). 59 RESULT: Jerome Bonilla M.D., Ph.D. Test Performed by: [place] [address] Legal Secretary Receptionist: Fadi Jewell III, M.D. 60 -- REFERENCE VALUE -- <=13 (Fasting) Test Performed by: [place] [address] Legal Secretary Receptionist: Fadi Jewell III, M.D. 61 Please note: The following may produce a false positive D Dimer test: - Rheumatoid factor greater than 60 IU/ml - Plasma hemoglobin greater than 0.05 gm/dl - Bilirubin greater than 50 mg/dl - Lipids greater than 1000 mg/dl - FDP greater than 20 ug/ml 62 Because ethnic data is not always readily available, this report includes an eGFR for both -Americans and non- Americans. The National Kidney Disease Education Program (NKDEP) does not endorse the use of the MDRD equation for patients that are not between the ages of 18 and 70, are , have extremes of body size, muscle mass, or nutritional status, or are non- or non-. According to the National Kidney Foundation, irrespective of diagnosis, the stage of the disease is based on the level of kidney function: Stage Description GFR(mL/min/1.73 m(2)) 1 Kidney damage with normal or decreased GFR 90 2 Kidney damage with mild decrease in GFR 60-89 3 Moderate decrease in GFR 30-59 4 Severe decrease in GFR 15-29 5 Kidney failure <15 (or dialysis) 63 RUN DATE: 03/17/12 [facility] NMI LIVE PAGE 1 RUN TIME: 2105 Specimen Inquiry RUN USER: INTERFACE Name: ELHAM COLIN Status: REG ER Re03/17/12 Age/Sex: 71/F Unit#: [id number] Location: [facility] : 39 SPEC #: [id number] RUT: 03/17/12 STATUS: RES REQ #: [id number] RECD: 03/17/[address]: Lan Mayberry DO SOURCE: THROAT ENTR: 03/17/[address]: Natalie THOMPSON,Ivan Ulrich SPDESC: ORDERED: RAPID STREP A, THROAT-BETA STR Procedure Result Verified Site > RAPID STREP A Final 03/17/12- 2105 ML RAPID STREP NEGATIVE FOR GROUP A STREP BY ENZYME IMMUNOASSAY The marine equipment preservation inspector and regulatory agencies both recommend that a throat culture for beta strep be performed if a Rapid Group A Strep assay yields a negative result. Therefore a culture will be automatically performed on all negative samples. THROAT-BETA STREP CULTURE - Pending ML - [facility] Permit #[id number] [address] [place] [address] DEPARTMENT OF PATHOLOGY, [address] [place] [address] [facility] Permit #[id number] Huang Zamudio M.D. Director Valarie Rioc M.D. [employer] 64 New Reference Range and Interpretation effective 05/04/2002 TnI (ng/ml) INTERPRETATION Less Than 0.06 ng/mL NOT SUPPORTIVE OF DIAGNOSIS OF MA 0.06 - 0.50 ng/ml INDETERMINATE: SUGGEST SERIAL STUDIES IF CLINICALLY INDICATED. Greater than 0.5 ng/mL CONSISTENT WITH DIAGNOSIS OF MA . 65 INTERPRETATION %CK-MB < 5% NOT SUPPORTIVE OF DIAGNOSIS OF MA 5 - <10% INDETERMINATE; SUGGEST SERIAL STUDIES IF CLINICALLY INDICATED 10% OR > CONSISTENT WITH DIAGNOSIS OF MA . 66 Anion gap measurement may be of limited value in the presence of any alkalosis, especially in a combined acid base disorder. . 67 A metabolite of Naproxen, O-desmethylnaproxen, has been shown to interfere with the Jendrassik-Leadwood method for measuring total bilirubin. Samples from patients who have taken Naproxen have shown spurious elevation in total bilirubin levels. 68 Because ethnic data is not always readily available, this report includes an eGFR for both -Americans and non- Americans. The National Kidney Disease Education Program (NKDEP) does not endorse the use of the MDRD equation for patients that are not between the ages of 18 and 70, are , have extremes of body size, muscle mass, or nutritional status, or are non- or non-. According to the National Kidney Foundation, irrespective of diagnosis, the stage of the disease is based on the level of kidney function: Stage Description GFR(mL/min/1.73 m(2)) 1 Kidney damage with normal or decreased GFR 90 2 Kidney damage with mild decrease in GFR 60-89 3 Moderate decrease in GFR 30-59 4 Severe decrease in GFR 15-29 5 Kidney failure <15 (or dialysis) 69 ---- RUN DATE: 10/25/11 [facility] NMI LIVE PAGE 1 RUN TIME: 1405 Specimen Inquiry RUN USER: INTERFACE -- Name: ELHAM COLIN [facility]#: [id number] Status: REG REF Re10/22/11 Age/Sex: 71/F Unit#: [id number] [facility] -- Specimen: [id number] Spec Date:10/22/11- Dr: Kimo wilcox MD Spec Type: SURGICAL P Received:10/22/11-1246 Copies to: Tony sherman MD SPECIMEN 1) BIOPSY CECAL POLYP 2) BIOPSY RIGHT COLON POLYP HISTORY POST-OP DIAGNOSIS: Colonosocpy into cecum, prep good - 2 polyps removed; minimal sigmoid diverticulosis CLINICAL INFORMATION: High risk screening colonoscopy (history of colon p olyps); irritable bowel syndrome GROSS DESCRIPTION 1) The specimen is received in formalin labelled Elham Iam [place], Biopsy Cecal Polyp, and consists of a almanzar soft tissue fragment measuring 0.4 x 0.3 x 0.2 cm. Submitted entirely, one cassette. 2) The specimen is received in formalin labelled Elham Iam Dix[place], Biopsy Right Colon Polyp, and consists of multiple almanzar soft tissue fragments measuring 0.6 x 0.4 x 0.2 cm. in aggregate. Submitted entirely, one cassette. DIAGNOSIS 1) Cecum, biopsy: A. Tubular adenoma. B. No high grade dysplasia or malignancy. 2) Colon, right, biopsy: A. Tubular adenoma. B. No high grade dysplasia or malignancy. Signed Electronically by: HUANG ZAMUDIO MD 10/25/11 1402 -- -- DEPARTMENT OF PATHOLOGY, [address] [place] [address] [facility] Permit #[id number] Huang Zamudio M.D. Director Valarie Rico M.D. V Groove Cutter Dir angel -- 70 NON FASTING 71 Please note: New reference range, effective 07/22/11 NORMAL REFERENCE RANGE: GREATER THAN 4.1 NG/ML 72 Lymphopenia % Basophilia % 73 Anion gap measurement may be of limited value in the presence of any alkalosis, especially in a combined acid base disorder. . 74 Because ethnic data is not always readily available, this report includes an eGFR for both -Americans and non- Americans. The National Kidney Disease Education Program (NKDEP) does not endorse the use of the MDRD equation for patients that are not between the ages of 18 and 70, are , have extremes of body size, muscle mass, or nutritional status, or are non- or non-. According to the National Kidney Foundation, irrespective of diagnosis, the stage of the disease is based on the level of kidney function: Stage Description GFR(mL/min/1.73 m(2)) 1 Kidney damage with normal or decreased GFR 90 2 Kidney damage with mild decrease in GFR 60-89 3 Moderate decrease in GFR 30-59 4 Severe decrease in GFR 15-29 5 Kidney failure <15 (or dialysis) 75 Analyte Specific Reagent This test was developed and its performance characteristics determined by Laboratory Medicine and Pathology, [facility]. This test has not been cleared or approved by the U.S. Food and Drug Administration. Test Performed by: [facility] Dpt of Lab Med and Pathology [address] [place] [address] Legal Secretary Receptionist: Fadi Jewell III, M.D. 76 -- REFERENCE VALUE -- <20.0 (Negative) 20.0-30.0 (Weak Positive) >30.0 (Positive) Test Performed by: [facility] Dpt of Lab Med and Pathology [address] [place] [address] Legal Secretary Receptionist: Fadi Jewell III, M.D. 77 -- REFERENCE VALUE -- <20.0 (Negative) 20.0-30.0 (Weak Positive) >30.0 (Positive) Test Performed by: [facility] Dpt of Lab Med and Pathology [address] [place] [address] Legal Secretary Receptionist: Fadi Jewell III, M.D. 78 Test Performed by: [facility] Dpt of Lab Med and Pathology [address] [place] [address] Legal Secretary Receptionist: Fdai Jewell III, M.D. 79 ---- RUN DATE: 09/09/09 [facility] NMI LIVE PAGE 1 RUN TIME: 1516 Specimen Inquiry RUN USER: INTERFACE -- Name: ELHAM COLIN [facility]#: [id number] Status: REG REF Re09/05/09 Age/Sex: 69/F [facility]#: [id number] -- Specimen: [id number] [facility] Spec Date: 09/05/[address]: Kimo anderson MD Spec Type: SURGICAL P Received: 09/08/09 Copies to: [facility] SPECIMEN 1) SMALL RIGHT COLON POLYP 2) CECAL POLYPS 3) SMALL CECAL POLYP 4) RIGHT SIDED COLON BIOPSY HISTORY POST-OP DIAGNOSIS: Multiple cecal polyps, diffuse melanosis coli CLINICAL INFORMATION: Abdominal pain, change in bowel habits, history of colon polyp GROSS DESCRIPTION 1) Specimen received in formalin labelled Elham Colin, Small Colon Polyp Biopsy and consists of multiple, almanzar, soft tissue fragments measuring 0.8 x 0.2 x 0.1 cm. in aggregate. Submitted entirely, one cassette. 2) Specimen received in formalin labelled Elham Colin, Cecal Polyps and consists of multiple, almanzar, soft tissue fragments measuring 1.3 x 0.6 x 0.4 cm. in aggregate. Submitted entirely, one cassette. 3) Specimen received in formalin labelled Elham Colin, Small Cecal Polyp and consists of two, almanzar, soft tissue fragments measuring 0.4 x 0.1 x 0.1 cm. Submitted entirely, one cassette. 4) Specimen received in formalin labelled Elham Colin, Right Side Colon Biopsies and consists of two, almanzar-brown, irregular, soft tissue fragments measuring 0.4 x 0.2 x 0.2 cm. in aggregate. Submitted entirely, one cassette. DIAGNOSIS 1) Colon, right, polyp, biopsy: A. Tubular adenoma. B. No high grade dysplasia or malignancy. 2) Colon, cecum, biopsy: A. Tubular adenoma. B. No high grade dysplasia or malignancy. -- DEPARTMENT OF PATHOLOGY, [address] [place] [address] [facility] Permit #[id number] Gamal Joseph M.D. V Groove Cutter Dir ortiz -- -- RUN DATE: 09/09/09 [facility] NMI LIVE PAGE 2 RUN TIME: 1516 Specimen Inquiry RUN USER: INTERFACE -- Name: ELHAM COLIN Status: REG REF Re09/05/09 Age/Sex: 69/F Unit#: [id number] [facility] -- -- CONTINUED -- DIAGNOSIS (Continued) 3) Colon, cecum, biopsy: A. Tubular adenoma. B. No high grade dysplasia or malignancy. 4) Colon, right side biopsies: Hyperplastic change. Signed Electronically by: HUANG ZAMUDIO MD 09/09/09 1515 -- -- DEPARTMENT OF PATHOLOGY, [address] [place] [address] [facility] Permit #[id number] Huang Zamudio M.D. Director Valarie Rico M.D. V Groove Cutter Dir angel -- 80 NO GROWTH OF CAMPYLOBACTER AFTER 48 HOURS 81 NEGATIVE FOR THE ENTERIC PATHOGENS - SALMONELLA, SHIGELLA, AEROMONAS, PLESIOMONAS AND YERSINIA. VIBRIO AND E. COLI 0157 NOT ROUTINELY TESTED FOR IN A STOOL CULTURE. PLEASE SUBMIT SAMPLE WITH SPECIFIC REQUEST FOR DESIRED ORGANISM(S). 82 N^NEGATIVE BY IMMUNOCHROMATOGRAPHIC ASSAY^ST2 83 Giardia and cryptosporidium antigen testing performed by immunoassay. If patient is immunocompromised or has traveled to or is from a developing country, a full ova and parasite exam with microscopic (OPMIC) is recommended. All samples will be held one month in case full ova and parasite testing is requested. Contact the Microbiology Department at [phone]. TEST LIMITATIONS: As with all diagnostic procedures, the results obtained should be used in conjunction with other clinical information available the physician. Negative results can occur in samples containing antigen below lower limits of detection of the assay. The use of colonic washes, aspirates or other diluted sample types has not been established and could affect the performance of the assay. Stool samples contaminated with an oily or particulate base (eg. Barium, mineral oil etc.) could interfere with the test and are not recommended. N^NEGATIVE BY IMMUNOASSAY^CRY N^NEGATIVE BY IMMUNOASSAY^PERNELL 84 Test not performed 85 Because ethnic data is not always readily available, this report includes an eGFR for both -Americans and non- Americans. The National Kidney Disease Education Program (NKDEP) does not endorse the use of the MDRD equation for patients that are not between the ages of 18 and 70, are , have extremes of body size, muscle mass, or nutritional status, or are non- or non-. According to the National Kidney Foundation, irrespective of diagnosis, the stage of the disease is based on the level of kidney function: Stage Description GFR(mL/min/1.73 m(2)) 1 Kidney damage with normal or decreased GFR 90 2 Kidney damage with mild decrease in GFR 60-89 3 Moderate decrease in GFR 30-59 4 Severe decrease in GFR 15-29 5 Kidney failure <15 (or dialysis) 86 ---- RUN DATE: 06/25/09 [facility] NMI LIVE PAGE 1 RUN TIME: 1535 Specimen Inquiry RUN USER: INTERFACE -- Name: ELHAM COLIN Status: REG REF Re06/24/09 Age/Sex: 69/F Unit#: [id number] Location: [facility] : 39 -- Specimen: [id number] SOUT Spec Date: 06/24/[address]: Dee CONNELL Spec Type: CYTOLOGY Received: 06/25/09-1324 Copies to: SOURCE ECTOCERVICAL/ENDOCERVICAL Thin Prep Only PATIENT INFORMATION ACTUAL COLLECTION DATE: 06/24/09 ? No POST MENOPAUSAL? Yes HYSTERECTOMY? No PREVIOUS ABNORMAL PAP SMEARS No ADEQUACY OF SPECIMEN Satisfactory for evaluation * Transformation zone component cannot be definitely identified due to prese nce * of atrophy or other hormonal changes. * DIAGNOSIS NEGATIVE FOR INTRAEPITHELIAL LESION OR MALIGNANCY * This Pap test was evaluated with the assistance of the SRL GlobalPrep Pap Test Imaging System. The Pap Smear is a screening test designed to aid in the detection of premalign ant and malignant conditions of the uterine cervix. It is not a diagnostic procedure a nd should not be used as the sole means of detecting cervical cancer. Both false- positiv e and false-negative reports do occur. Depending on your risk status, a Pap smear abram uld be obtained and evaluated every one to three years. Initial evaluation performed by Cooper LOAIZA(ASCP) 06/25/09 Final Interpretation electronically signed by: Cooper LOAIZA(ASCP) 06/25/09 1535 -- -- DEPARTMENT OF PATHOLOGY, [address] [place] [address] [id number] [facility] Permit #[id number] Huang Zamudio M.D. Director Valarie Rico M.D. V Groove Cutter angel -- 87 NORMAL ELECTROPHORETIC PATTERN. 88 Anion gap measurement may be of limited value in the presence of any alkalosis, especially in a combined acid base disorder. . 89 Note change in reference range as of 03/21/08. The change was based on recommendations from the [place] [employer]. 90 Please note change in reference range effective 08 . 91 -- REFERENCE VALUE -- 25-HYDROXY D TOTAL (D2+D3) Optimum levels in the normal population are 25-80 Test Performed by: [facility] Dpt of Lab Med and Pathology [address] [place] [address] Legal Secretary Receptionist: Fadi Jewell III, M.D. Procedures Date Code Description Status 11/08/2018 11530 ECHO Transthoracic, Real-Time 2D With Doppler And Completed Color Flow 11/08/2018 12014 ECHO Transthoracic, Real-Time 2D With Doppler And Completed Color Flow 11/04/2018 26866 [facility] Measurement Heart Rate, Completed Oximetry 10/25/2018 [id number] Bone Mineral Density Test Completed 10/18/2018 32458 Diffusing Capacity Completed 10/18/2018 09893 Plethysmography Determination Lung Volumes & Per Completed Airway Resist 10/18/2018 15708 Pulmonary Function><Bronchodil Completed 10/21/2017 [id number] Mammogram Completed 10/20/2016 [id number] Mammogram Completed 10/20/2016 [id number] Bone Mineral Density Test Completed 04/01/2016 38457 Multiple Sleep Latency Or Wakefulness Testing Completed 03/31/2016 94684 Polysomnography Sleep Staging 4+ Parameters Completed 04/09/2015 [id number] Colonoscopy Completed 05/01/201456923 Inject Tendon Sheath Or Ligament Aponeurosis Eg Completed Plantar Fascia 10/10/2013 84953 Inject Tendon Sheath Or Ligament Aponeurosis Eg Completed Plantar Fascia 07/05/2013 [id number] Bone Mineral Density Test Completed 02/19/2013 81085 ECHO Transthoracic, Real-Time 2D With Doppler And Completed Color Flow 02/09/2013 60799 Inhalation TX For Acute Airway Obstruction Completed W/Nebulizer/Inhaler 12/28/2012 [id number] Mammogram Completed 10/20/2012 33120 EKG Tracing & Interpretation Completed 04/27/2012 73979 Rad Exam; Pelvis Completed 10/22/2011 [id number] Colonoscopy Completed 09/16/2010 [id number] Mammogram Completed 09/05/2009 [id number] Colonoscopy Completed 07/11/2008 [id number] Mammogram Completed 04/10/2008 034761514 Bone Mineral Density Test Completed 12/23/2006 31873 Echocardiogram Completed 12/23/2006 14197 Echocardiogram Completed 12/23/2006 63101 Pulse Doppler & Continuous Wave Completed 12/23/2006 32616 Color Doppler Completed 12/23/2006 88532 Color Doppler Completed Encounters Type Date Location Provider Dx Diagnosis Office Visit 10/05/2018 [facility] Internal Tony Ulrich Z00.01 Encounter for 2:20p Nikhil Estrada M.D.,FACP general adult Rd medical exam w abnormal findings J47.9 Bronchiectasis, uncomplicated R06.00 Dyspnea, unspecified M81.0 Age-related osteoporosis w/o current pathological fracture Z12.31 Encntr screen mammogram for malignant neoplasm of breast F32.9 Major depressive disorder, single episode, unspecified Office Visit 02/13/2018 10:40a Doretha Ulrich A69.20 Lyme diseaseNikhil M.D.,FACP unspecified [address] Office Visit 01/27/2018 8:30a Doretha Ulrich A69.20 Lyme diseaseNikhil M.D.,FACP unspecified [address] R59.0 Localized enlarged lymph nodes Office Visit 01/16/2018 11:00a Doretha Ulrich A69.20 Lyme diseaseNikhil M.D.,FACP unspecified [address] R53.83 Other fatigue M54.89 Other dorsalgia Office Visit 12/28/2017 11:20a [facility] Internal Tony Ulrich R59.0 Localized Medicine - Tbjoyce Estrada M.D.,FACP enlarged lymph Rd nodes M25.579 Pain in unspecified ankle and joints of unspecified foot Office Visit 09/02/2017 11:20a [facility] Internal Tony Estrada, M54.5 Low back pain Medicine - Katya Yeung,FACP Rd N35.9 Urethral stricture, unspecified Office Visit 12/29/2016 10:10a [facility] Internal Tony Ulrich M81.0 Age-related Nikhil Estrada M.D.,FACP osteoporosis w/o [address] current pathological fracture Office Visit 09/24/2016 10:00a [facility] Internal Tony Ulrich Z00.01 Encounter for Nikhil Estrada M.D.,[facility] general adult [address] medical exam w abnormal findings M81.0 Age-related osteoporosis w/o current pathological fracture J47.9 Bronchiectasis, uncomplicated R41.3 Other amnesia Z12.31 Encntr screen mammogram for malignant neoplasm of breast Office Visit 04/17/2015 [facility] Internal Tony Ulrich 289.81 primary 3:40p Nikhil Estrada M.D.,FACP hypercoagulable state [address] 458.0 Hypotension Orthostatic v04.81 Need For Prophylactic Vaccination & Inoculation/Influenza Office Visit 10/07/2014 11:30a [facility] Internal Cory Arteaga, 465.8 Upper Respiratory Medicine - [place] [address] MENDER Infections Acute Rd Other Multiple Sites 465.9 URI Upper Respiratory Infections Acute Unspec Sites Office Visit 09/27/2014 2:20p [facility] Internal Tamara Mcdonald, V72.31 Routine Cryptologic Linguist Medicine N.P. Examination 564.1 Irritable Bowel Syndrome 625.8 Female Genital Organs Spec Symptoms Other Office Visit 05/01/2014 Orthopedic Denisha 727.04 Tenosynovitis 8:45a Services Of Gamal Tang Radial Styloid C.M.A. Office Visit 03/27/2014 Orthopedic Denisha 727.04 Tenosynovitis 9:30a [facility]al Tang Radial Styloid C.M.A. Office Visit 10/10/2013 Orthopedic Denisha 727.04 Tenosynovitis 8:00a [facility] Tang Radial Styloid C.M.A. Office Visit 10/03/2013 [facility] Internal Tony Estrada, 726.90 Enthesopathy 4:00p Medicine Gamal,FACP Unspec Site Office Visit 09/10/2013 [facility] Internal Tony Estrada, 785.6 Lymph Nodes 11:10a Medicine Gamal,FACP Enlargement 716.83 Arthropathy Other Spec Forearm Office Visit 07/02/2013 10:50a [facility] Kayleigh Ulrich V70.0 Examination Medicine Gamal Estrada,FACP General Medical Routine AT Health Care Facility 733.99 Bone & Cartilage Disorder Other 780.93 Memory Loss 238.2 Neoplasm Uncertain Skin 785.6 Lymph Nodes Enlargement Office Visit 02/26/2013 3:00p [facility] Internal Tony Ulrich 041.85 Gram Negative Nikhil Estrada M.D.,FACP Organisms Other 482.9 Pneumonia Due To Bacterial Infection Unspec 494.0 Bronchiectasis Without Acute Exacerbation Office Visit 02/14/2013 11:10a [facility] Kayleigh Ulrich 786.2 Cough Nikhil Estrada M.D.,FACP Office Visit 02/09/2013 9:40a [facility] Internal Ayala 786.2 Cough Medicine Gamal Bach Office Visit 01/29/2013 3:00p [facility] Internal Tony Ulrich 444.9 Embolism & Nikhil Estrada M.D.,FACP Thrombosis Arterial Of Unspec Artery V58.61 Anticoagulants Legal Secretary Receptionist (Current) Use Encounter 462 Pharyngitis Acute Office Visit 01/15/2013 9:50a [facility] Internal Nina Cortez, 461.8 Sinusitis Acute Medicine Gamal Other V58.61 Anticoagulants Legal Secretary Receptionist (Current) Use Encounter 444.9 Embolism & Thrombosis Arterial Of Unspec Artery Office Visit 12/07/2012 3:40p [facility] Internal Tony Ulrich 444.9 Embolism & Medicine Gamal Estrada,FACP Thrombosis Arterial Of Unspec Artery V58.61 Anticoagulants [facility] (Current) Use Encounter 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 Office Visit 11/23/2012 3:40p [facility] Internal Tony Ulrich 444.9 Embolism & Nikhil Estrada M.D.,FACP Thrombosis Arterial Of Unspec Artery 272.0 Hypercholesterolemia Pure Office Visit 10/20/2012 4:20p [facility] Internal Tony Ulrich 535.00 Gastritis [facility] Hemorrhage 786.59 Pain Chest Other Office Visit 09/06/2012 4:00p [facility] Internal Tony Ulrich 466.0 Bronchitis Acute Medicine Gamal Estrada,[facility] Office Visit 04/27/2012 1:00p Orthopedic Lito Ramirez, 719.65 Joint Symptoms Services Of Gamal Other Pelvic & C.M.A. Thigh Office Visit 04/04/2012 11:30a [facility] Internal Tony Ulrich 473.0 Sinusitis Medicine [facility] Chronic Maxillary 727.3 Bursitis Other V04.81 Need For Prophylactic Vaccination & Inoculation/Influenza Office Visit 03/20/2012 12:10p [facility] Internal Tony Ulrich 786.59 Pain Chest Medicine Gamal Estrada,[facility] Other 462 Pharyngitis Acute 727.3 Bursitis Other Office Visit 07/23/2011 1:40p DO Not Use Sleeve Machine Tender AT Tony Estrada, 799.02 Hypoxemia Leroy Yeung,[facility] 780.52 Insomnia Unspecified Office Visit 02/25/2011 3:00p DO Not Use Doretha Ulrich V70.0 Examination AT Leroy Estrada M.D.,[facility] General Medical Routine AT Health Care Facility 627.2 Menopausal Or Female Climacteric State, Symptomatic 564.1 Irritable Bowel Syndrome 346.11 Migraine W/O Aura W/Intractable W/O Status Migrainosus Office Visit 08/28/2010 1:20p DO Not Use Doretha Ulrich 346.10 Migraine Common AT Leroy Estrada M.D.,[facility] W/O Intractable W/O Status Migrainosus 466.0 Bronchitis Acute Office Visit 07/20/2010 2:20p DO Not Use Sleeve Machine Tender Trevon 466.0 Bronchitis Acute AT Leroy Lewis M.D. Office Visit 07/13/2010 3:40p DO Not Use Sleeve Machine Tender [place] 466.0 Bronchitis Acute AT Leroy Lewis M.D. Office Visit 07/06/2010 10:40a DO Not Use Doretha Ulrich 381.81 Eustachian Tube AT Leroy Estrada M.D.,[facility] Dysfunction 627.1 Postmenopausal Bleeding Office Visit 07/21/2009 2:00p DO Not Use Sleeve Machine Tender Dee Andino PA 009.3 Diarrhea Presumed AT [facility] Infectious Origin V04.81 Need For Prophylactic Vaccination & Inoculation/Influenza Office Visit 07/04/2009 DO Not Use Sleeve Machine Tender Tony Ulrich 235.4 Neoplasm Uncertain 11:20a AT Leroy Estrada M.D.,[facility] Retroperitoneum & Peritoneum Office Visit 06/24/2009 DO Not Use Sleeve Machine Tender Dee Andino,Lora 789.07 Pain Abdominal 2:30p AT [facility] A Generalized V72.31 Routine Cryptologic Linguist Examination Office Visit 04/29/2009 3:20p DO Not Use Sleeve Machine Tender Tony Ulrich 780.52 Insomnia AT Leroy Estrada M.D.,[facility] Unspecified 300.09 Anxiety States Other 346.11 Migraine W/O Aura W/Intractable W/O Status Migrainosus Office Visit 04/04/2009 3:40p DO Not Use Sleeve Machine Tender Bibi 564.1 Irritable Bowel AT [facility] Gamal Sexton Syndrome Office Visit 01/16/2009 11:40a DO Not Use Sleeve Machine Tender Tony Estrada, 564.1 Irritable Bowel AT [facility] Gamal,[facility] Syndrome 346.10 Migraine Common W/O Intractable W/O Status Migrainosus Office Visit 12/09/2008 11:00a DO Not Use Sleeve Machine Tender AT Tony Ulrich 729.82 Cramp Of Limb Leroy Estrada M.D.,FACP Office Visit 11/18/2008 10:00a DO Not Use Sleeve Machine Tender AT Tony Ulrich 729.82 Cramp Of Limb [facility] 333.94 Restless Leg Syndrome 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 Stenosis, Lumbar Region, 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 Claudication Office Visit 05/07/2008 11:20a DO Not Use Sleeve Machine Tender Tony Ulrich 346.10 Migraine Common AT Leroy Estrada M.D.,[facility] W/O Intractable W/O Status Migrainosus 843.9 Sprains & Strains Hip & Thigh Unspec Site 733.99 Bone & Cartilage Disorder Other V04.81 Need For Prophylactic Vaccination & Inoculation/Influenza v04.81 Need For Prophylactic Vaccination & Inoculation/Influenza Office Visit 04/08/2008 11:40a DO Not Use Sleeve Machine Tender Tony Ulrich 846.1 Sprains & Strains AT Leroy Estrada M.D.,FACP Sacroiliac Region Sacroiliac Ligament Office Visit 10/17/2007 9:20a DO Not Use Sleeve Machine Tender Tony Ulrich 564.1 Irritable Bowel AT Leroy Estrada M.D.,[facility] Syndrome 558.9 Gastroenteritis & Colitis Noninfectious Other 620.2 Ovarian Cyst Other & Unspec Plan of Treatment Future Appointment(s):12/15/2018 11:30 am - Eric Niño LCSW at [facility] Internal Slxomdrg56/11/2019 11:20 am - Gauri Herbert MD at [facility] Internal [id number] - Kameron Kapadia MDJ47.9 Bronchiectasis, uncomplicatedComments:Does not feel that a flutter valve is helping.J98.4 Other disorders of lungNew Xrays:CT Chest W/O, Ordered: 12/11/18Comments:Will need repeat CT chest in 3 months.Follow up:after ct chest late january or early march 2019
[2018-12-16 07:52] VITALS: BP 138/82
--- NOTE | 2018-12-16 08:21 | UC ---
Respiratory Complaint HPI - HPI Summary HPI Summary: pt reports coughing and ST for 3-4 days, has been very fatigued from 's 5 days ago. denies fever or chills, no SOB, "dry tickling cough and ST" had chest CT 3 weeks ago and is following up with PCP in December - History of Current Complaint Chief Complaint: UCGeneralIllness Stated Complaint: SORE THROAT/COUGH Time Seen by Provider: 12/16/18 08:02 Hx Obtained From: Patient Onset/Duration: Gradual Onset Severity Initially: Mild Severity Currently: Moderate Pain Intensity: 6 Character: Cough: Nonproductive Associated Signs And Symptoms: Negative: Fever, Chills, Hemoptysis, Nasal Congestion - Allergies/Home Medications Allergies/Adverse Reactions: Allergies Allergy/AdvReac Type Severity Reaction Status Date / Time azithromycin Allergy Migraines Verified 12/16/18 07:43 codeine Allergy Migraines Verified 12/16/18 07:43 erythromycin base Allergy Migraines Verified 12/16/18 07:43 PMH/Surg Hx/FS Hx/Imm Hx Previously Healthy: Yes Respiratory History: Other - lung nodules - Surgical History Surgical History: Yes Surgery Procedure, Year, and Place: partial hysterectomy,. 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 tonsillectomy,. appendectomy - Family History Known Family History: Positive: Hypertension - Social History Occupation: Retired Lives: With Family Alcohol Use: Rare Substance Use Type: None Smoking Status (MU): Never Smoked Tobacco Review of Systems All Other Systems Reviewed And Are Negative: Yes Constitutional: Positive: Fatigue. Negative: Fever, Chills Skin: Positive: Negative ENT: Positive: Sore Throat, Sinus Congestion. Negative: Ear Ache Respiratory: Positive: Cough. Negative: Shortness Of Breath Cardiovascular: Positive: Negative Gastrointestinal: Positive: Negative Neurological: Positive: Negative. Negative: Headache Psychological: Positive: Other - grief Physical Exam Triage Information Reviewed: Yes Appearance: Well-Appearing, No Pain Distress, Well-Nourished Vital Signs: Initial Vital Signs Temp 97.9 F 12/16/18 07:44 Pulse 95 12/16/18 07:44 Resp 20 12/16/18 07:44 BP 138/82 12/16/18 07:44 Pulse Ox 96 12/16/18 07:44 Vital Signs Reviewed: Yes ENT: Positive: Pharyngeal erythema, Nasal congestion, Other - cobblestoning and clear PND Neck exam: Normal Neck: Positive: Supple, No Lymphadenopathy Respiratory: Positive: Lungs clear, Other: - dry cough Cardiovascular Exam: Normal Cardiovascular: Positive: RRR Musculoskeletal Exam: Normal Neurological Exam: Normal Psychological Exam: Normal Skin Exam: Normal Respiratory Course/Dx - Differential Dx/Diagnosis Differential Diagnosis/HQI/PQRI: Bronchitis, CHF, Influenza, Lower Resp Infection, Sinusitis Provider Diagnosis: Upper respiratory infection Discharge - Sign-Out/Discharge Documenting (check all that apply): Patient Departure All imaging exams completed and their final reports reviewed: No Studies - Discharge Plan Condition: Stable Disposition: HOME Prescriptions: Benzonatate CAP* [Tessalon 100 MG CAP*] 100 mg PO TID #12 cap Cefdinir [Cefdinir 300 MG CAP] 300 mg PO BID #20 capsule Patient Education Materials: Upper Respiratory Infection (DC) Referrals: Gauri Herbert MD [Primary Care Provider] - 2 Days (recheck cough) Additional Instructions: drink plenty of fluids start antibiotic and cough suppressant may add robitussin cough syrup (over the counter) to help relieve persistent cough please return here or to the ER if your cough worsens - Billing Disposition and Condition Condition: STABLE Disposition: Home
== END 2018-12-16 08:37 | disposition home or self-care (01) ==
LOC: UCEAST 07:33
DX: J06.9 Acute upper respiratory infection, unspecified (principal); Z88.1 Allergy status to other antibiotic agents; Z88.5 Allergy status to narcotic agent
CPT/HCPCS: 99212; G0463

== ENCOUNTER 2019-02-15 13:00 | Emergency (ER) | payer MEDICARE, BC ==
--- OUTSIDE RECORDS SUMMARY | 2019-02-15 13:06 | XMS REPORT | Continuity of Care Document ---
:1940 External Reference #:[id number] Author Name Chantel Lopez Care Team Providers Name Role Phone Gauri Herbert M.D. Primary Care Physician Unavailable Payers Date Identification Numbers Payment Provider Subscriber Effective: 2004 Policy Number: [id number] Medicare Elham Colin PayID: [id number] [address] [place] [address] Effective: 2012 Policy Number: [id number] BS Facets Elham Colin PayID: [id number] [address] [address] [place] [address] Effective: 2005 Policy Number: [id number] BS Of Myra Colin Expires: 2012 Group Number: [id number] [address] PayID: [id number] [place] [address] Advance Directives Type Date Description Status Comment Other Directive 12/20/2018 Health Care Proxy Current and Verified Other Directive 09/02/2017 Health Care Proxy Current [...] : (age 47 Years) Father due to NH Mother due to Stroke () Children 2 First Daughter Arnold-Chiari I malformation First Daughter Pulmonary Embolism (Pe) First Daughter Factor 5 Leiden Second Daughter Depression Siblings Only child Siblings None Social History Type Date Description Comments Sex Unknown Marital Status December 2018 Occupation Retired Tobacco Use Start: Unknown Never Smoked Cigarettes Tobacco Use Start: Unknown Significant Secondhand Smoke Exposure Smoking Status Reviewed: 02/05/19 Significant Secondhand Smoke Exposure ETOH Use 10/05/2018 [...] Medications SIG Qnty Indications Ordering Date Provider Prolia one sc every 6 1ml M81.0 Gauri Herbert MD 02/05/2019 60mg/ml Soln months Prefill Syringe Ranitidine 150 one by mouth twice a 60tabs K21.9 Gauri Herbert MD 2018 Maximum Strength day 150mg Tablets Nebusal every 6 hours as 720ml J47.9 Nina Cortez, 12/28/2018 3% needed M.D. Nebulizer Nebulizer every 6 hours as 1units J47.9 Nina Cortez, 12/28/2018 Misc needed M.D. Nebulizer 1 unit nebulization 1units J47.9 Nina Cortez, 12/28/2018 Kit/Tubing/Mouthpie every 6 hours as M.DKaylen ce needed Kit Mucinex 1 by mouth twice a 14tabs J06.9 Trey Stahl, 12/20/2018 600mg day BREAD PANNER Tablets ER 12HR R05 Fluticasone Propionate use 2 sprays in 16units J06.9 Zsofia Favio, BREAD PANNER each nostril one 50mcg/Act Suspension time a day J30.9 Levocetirizine pt stopped----1 by 30tabs J30.9 Trey Moellerk, 12/20/2018 Dihydrochloride mouth every day BREAD PANNER 5mg Tablets Shingrix 0.5 milliliters 2units Tony Ulrich 10/05/2018 50mcg/0.5ML intramuscular now and Gamal Estrada,FACP Suspension Rec 2-3 months later repeat Riboflavin 4 every day 120caps Tony Ulrich 12/29/2016 100mg Capsules Gamal Estrada,FACP Vitamin B-Complex 1 by mouth every day 90tabs Tony Ulrich 09/24/2016 Tablets Gamal Estrada,FACP Calcium Citrate + D3 Tony Ulrich 09/24/2016 Gamal Estrada,FACP [id number] Tablets Potassium/Magnesium 1 daily Tony Ulrich 07/23/2011 Aspartate Gamal Estrada,FACP 50-20mg Capsules Vitamin A 1 daily Tony Ulrich 07/23/2011 5000Unit Capsules Gamal Estrada,FACP Vitamin C 3 In Am, 2 In PM Unknown 2000mg Tablets Vitamin D 1 po qd Unknown 2000Unit Capsules Magnesium 1 po bid 30caps Unknown 400mg Capsules Maitake Mushroom Unknown Capsule Glucosamine Chondroitin daily w/ MSM Unknown 1500 Complex 1500Com Capsules Turmeric 300 mg daily Unknown Iron 29 MG daily Unknown Dulcolax 2 tabs a day Unknown 5mg Tablets DR Mason Medications Symbicort inhale 1 puff twice 10.200gm R05 Kameron Kapadia 01/09/2019 - daily; rinse mouth 02/08/2019 80-4.5mcg/Act after use Aerosol Ventolin HFA 2 every 4 hours as 18gm R05 Kameron Kapadia 01/09/2019 - needed 02/08/2019 108(90Base) mcg/Act Aerosol Tessalon Perles 1 cap three times a 30caps Gauri Herbert MD 12/19/2018 - day as needed for 12/28/2018 100mg Capsules cough Flutter use [facility] Kameron Kapadia 11/04/2018 - Device twice a day 12/10/2018 Ranitidine 150 1 tab by mouth twice 60tabs R06.00 Kameron Kapadia 2018 - Maximum Strength a day 12/04/2018 150mg Tablets Zofran Odt let one tablet 30tabs Tony Ulrich 03/15/2018 - 4mg dissolve on tongue Gamal Estrada,[facility] 09/29/2018 Tablets Dispers every 5-6 hours as needed for nausea. Doxycycline Hyclate 1 by mouth twice a 60tabs Tony Ulrich 02/17/2018 - day [facility]ada,[facility] 09/29/2018 100mg Tablets Nabumetone take one tablet by 20tabs Tony Ulrich 01/27/2018 - 500mg mouth twice a day as Gamal Estrada,[facility] 09/29/2018 Tablets needed Flector apply 1 patch to the 10units Tony Ulrich 01/16/2018 - 1.3% skin two times daily Gamal Estrada,FACP 01/27/2018 Patches as needed Doxycycline Hyclate 1 by mouth twice a 28tabs Tony Ulrich 01/16/2018 - day [facility]al [facility]strada,[facility] 02/01/2018 100mg Tablets Rozerem 1 by mouth every 30tabs Tony Ulrich 10/12/2017 - 8mg Tablets night at bedtime as Gamal Estrada,[facility] 09/29/2018 needed for insomnia Triamcinolone apply every day as 15gm Tony Ulrich 12/07/2016 - Acetonide needed Gamal Estrada,[facility] 09/29/2018 0.1% Cream B2 Tony Ulrich 09/24/2016 - 100mg Tablets Gamal Estrada,[facility] 12/29/2016 Symbicort 2 puff twice a day 3units Tony Ulrich 09/24/2016 - Gamal Estrada,[facility] 12/28/2017 80-4.5mcg/Act Aerosol Olopatadine HCL 1 drop in eyes twice 1units Tony Ulrich 09/24/2016 - a day Gamal Estrada,[facility] 01/27/2018 0.1% Solution Systane one drop in each eye 120ml Tony Ulrich 09/24/2016 - 0.4-0.3% twice daily plus as Gamal Estrada,[facility] 01/27/2018 Solution needed every 2 hours Melatonin ER 1 by mouth every 30tabs R41.3 Tony Ulrich 09/24/2016 - 10mg night at bedtime Gamal sEtrada,[facility] 09/26/2017 Tablets ER Xifaxan 1 tab by mouth three 42tabs Kimo Vang, 05/08/2015 - 550mg a day 09/24/2016 Tablets Aspirin 1 by mouth every day 786.59 Tony Ulrich 10/07/2014 - 325mg prn Gamal Estrada,[facility] 09/24/[address] Azithromycin 2 tabs by mouth on 6tabs 465.8 Cory Arteaga NP 10/07/2014 - 250mg day one followed by 04/16/2015 Tablets 1 tab daily for the last 4 days Pennsaid 5 ggts L wrist bid 15ml 726.90 Tony Ulrich 10/03/2013 - 1.5% prn Gamal Estrada,[facility] 10/10/2013 Solution Ibuprofen tid prn 90tabs 726.90 Tony Ulrihc 10/03/2013 - 600mg Gamal Estrada,[facility] 10/10/2013 Tablets Voltaren apply 2 gms to 100g 726.90 Tony Ulrich 09/10/2013 - 1% Gel affected area bid Gamal Estrada,[facility] 10/03/2013 prn Levaquin 1 po qd x 14 days 7tabs Tony Ulrich 07/02/2013 - 500mg for bronchiectasis Gamal Estrada,[facility] 09/10/2013 Tablets exacerbation Levofloxacin 1 po qd 7tabs Tony Ulrich 02/19/2013 - 500mg Gamal Estrada,[facility] 02/26/2013 Tablets Aspirin 1 po qd 30tabs 786.59 Tony Ulrich 02/12/2013 - 325mg Gamal Estrada,[facility] 10/07/2014 Tablets Benzonatate take 1 capsule by 60caps 461.8 Ayala 02/09/2013 - 200mg mouth three times a CottonGamal 09/10/2013 Capsules day if needed Asmanex 30 Metered inhaled qd 1units Tony Ulrich 02/06/2013 - Doses Gamal Estrada,[facility] 02/26/2013 110mcg/Inh Aerosol Azithromycin take 2 tab on day 1 6tabs Nina Cortez, 01/17/2013 - 250mg then 1 tab daily x 4 M.D. 01/29/2013 Tablets days Benzonatate 1 tab at hs 10caps 461.8 Nina Cortez, 01/15/2013 - 100mg Gamal 02/09/2013 Capsules Coumadin as directed 90tabs V58.61 Melaniemarocs Blum, 01/15/2013 - 1mg N.P. 02/12/2013 Tablets Nifedipine 1 po qd 444.9 Tony Ulrich 11/24/2012 - 90mg Gamal Estrada,[facility] 11/24/2012 Tablets ER 24HR Nifedipine 1 po daily Tony Ulrich 11/23/2012 - 2.5mg Gamal Estrada,[facility] 11/23/2012 Capsules Nifedipine 1/4 tab PO tid 30caps 444.9 Tony Ulrich 11/23/2012 - 10mg Gamal Estrada,[facility] 12/07/2012 Capsules Warfarin Sodium 2 tabs qd for 3 30tabs 444.9 Tony Ulrich 11/23/2012 - days, then 1 qd or Gamal Estrada,[facility] 11/23/2012 Tablets as directed Coumadin 2 qd x3 day, then 1 30tabs 444.9 Tony Ulrich 11/23/2012 - 2.5mg qd or as directed Gamal Estrada,[facility] 01/25/2013 Tablets Nifedipine 1/4 tab PO tid 30caps Tony Ulrich 11/22/2012 - 10mg Gamal Estrada,[facility] 11/23/2012 Capsules Omeprazole 1 po qd 30caps 535.00 Tony Ulrich 10/20/2012 - 20mg Gamal [facility]strada,[facility] 12/07/2012 Capsules Amoxicillin/Potassi 1 bid x 7 days 14tabs 466.0 Tony Ulrich 09/06/2012 - um Clavulanate Gamal Estrada,[facility] 10/20/2012 875-125mg Tablets Levaquin 1 po qd x 10 days 10tabs 473.0 Tony Ulrich 04/04/2012 - 500mg Gamal Estrada,[facility] 05/02/2012 Tablets Aspirin Ec 1 po qd 90tabs 786.59 Tony Ulrich 03/20/2012 - 81mg Gamal Estrada,[facility] 02/12/[address] Hernandez take 1 capsule by 30capcaity Ulrich 11/08/2011 - 324mg mouth at bedtime Gamal Estrada,[facility] 10/20/2012 Capsules Paul-Mag 2 daily Tony Ulrich 07/23/2011 - 500-250mg Gamal Estrada,[facility] 12/29/2016 Tablets Rozerem use prn sleep 20tabs 780.52 Tony Ulrich 07/23/2011 - 8mg Tablets Gamal Estrada,[facility] 11/23/2012 Xifaxan 1 po tid for 2 wks 42tabs 564.1 Tony Ulrich 02/25/2011 - 550mg Gamal Estrada,[facility] 07/23/2011 Tablets Frova q2h prn mdd2 9tabs Tony Ulrich 08/14/2010 - 2.5mg Tablets Gamal Estrada,[facility] 11/23/2012 Relpax prn q2h po mdd 2 12tabs Tony Ulrich 08/10/2010 - 20mg Tablets Gamal Estrada,[facility] 08/14/2010 Advair Diskus 1 puff po bid 1units [place] 07/22/2010 - Gamal Lewis 08/28/2010 250-50mcg/Dose Aerosol Proventil HFA 2 puffs qid 1month 466.0 [place] 07/13/2010 - Gamal Lewis 07/23/2011 108(90Base) mcg/ac Aerosol Duoneb 1 vial via neb q 6 120units [place] 07/13/2010 - hours prn Gamal Lewis 08/28/2010 0.5-2.5(3)mg/3ML Solution Nasonex 2 sprays each 3mon 381.81 Tony Ulrich 07/06/2010 - 50mcg/Act nostril daily Gamal Estrada,[facility] 07/23/2011 Suspension Zolpidem Tartrate 1 tab po qhs prn 20tabs 780.52 Tony Ulrich 04/29/2009 - Gamal Estrada,[facility] 07/23/2011 5mg Tablets Zofran Odt po/sl prn two 346.11 Tony Ulrich 04/29/2009 - 8mg Gamal Estrada,[facility] 07/23/2011 Tablets Dispers Doxepin HCL use as directed 100caps Tony Ulrich 01/16/2009 - 10mg Gamal Estrada,[facility] 04/29/2009 Capsules Vitamin D 2 po qd 90caps Tony Ulrich 12/09/2008 - 1000Unit Gamal Estrada,[facility] 12/07/2012 Capsules Glycolax 17 g po qd, mixed 1month 729.82 Tony Ulrich 12/09/2008 - 3350NF with water Gamal Estrada,[facility] 07/23/2011 Powder Magnesium Sulfate inject 2ml(1gm)after 20units Tony Ulrich 12/02/2008 - dilution qd prn Gamal Estrada,[facility] 02/25/2011 50% Solution Gabapentin 2-3 tabs qhs po prn 90caps 333.94 Tnoy Ulrich 11/18/2008 - 100mg Gamal Estrada,FACP 02/25/2011 Capsules Magnesium (Not Sure 2 packets daily. Tony Ulrich 11/18/2008 - Which Type) Gamal Estrada,FACP 11/18/2008 400mg Trazodone HCL 1/2-1 QHS 30tabs Tony Ulrich 05/07/2008 - 50mg Gamal Estrada,FACP 11/18/2008 Tablets Sennagen 4 tab po qhs 30tabs Tony Ulrich 10/17/2007 - 8.6mg Gamal Estrada,FACP 07/23/2011 Tablets Amitiza 1 bid po 60caps 564.1 Tony Ulrich 10/17/2007 - 24mcg Gamal Estrada,FACP 05/07/2008 Capsules Gentamicin Sulfate 2 ggt affected eye 5ml Tony Ulrich 07/21/2007 - q4h Gamal Estrada,[facility] 10/17/2007 0.3% Solution Naproxen 1 PO bid prn 60tabs Tony Ulrich 07/07/2007 - 500mg Gamal Estrada,FACP 07/23/2011 Tablets Cefdinir 1 by mouth twice a 20caps Unknown - 300mg day x 10 days 12/28/2018 Capsules Aspirin Adult take one tab daily Unknown - 325mg 12/20/2018 Tablets Symbicort Unknown - 12/10/2018 Tamsulosin HCL [...] A & D Tony Ulrich - Gamal Estrada,[facility] 12/09/2008 Vitamin E 1 PO qd Tony [...] ER Imitrex Tony Ulrich - 20mg/Act Gamal Estrada,[facility] 08/10/2010 Solution Medications Administered in Office Medication SIG Qnty Indications Ordering Provider Date Celestone 3 mg and 3mg Denisha Tang, 05/01/2014 Injection M.DKaylen Celestone 3 mg and 3mg Denisha Tang, 10/10/2013 Injection M.DKaylen Immunizations CPT Code Status Date Vaccine Reaction Lot # [id number] Given 05/08/2018 Influenza Virus Vaccine, [id number] Quadrivalent, Split, Preservative Free 75318 Given 05/02/2017 Influenza Virus Vaccine, pt tolerated well [id number] Quadrivalent, Split, Preservative Free 07219 Given 05/15/2016 Influ Virus Vaccine, noo reaction noted ... [id number] Quadrivalent, Split Virus, [place] [address] Given 04/17/2015 Influenza Virus Vaccine, no reaction , no [id number] Quadrivalent, Split, comments Preservative Free 47069 Given 09/19/2014 Pneumococcal Conjugate [id number] Vaccine 13 Valent For Intramuscular Use 71880 Given 05/03/2014 Influenza Virus Vaccine, Quadrivalent, Split, Preservative Free 18439 Given 05/03/2014 Influenza Virus Vaccine, [id number] Quadrivalent, Split, Preservative Free 85465 Given 05/07/2013 Flu Vaccine Split Virus [id number] Preservative Free For Indiv 3Yr Older Q2038 Given 04/04/2012 Fluzone Vaccine [id number] Q2038 Given 04/09/2011 Fluzone Vaccine [id number] Q2038 Given 04/09/2011 Fluzone Vaccine Q2038 Given 04/09/2011 Fluzone Vaccine 03104 Given 05/08/2010 Influenza Virus 3Yrs & [id number] Over 82106 Given 05/08/2010 Influenza Virus 3Yrs & Over 94335 Given 07/21/2009 Influenza Virus Vaccine, [id number] 5P Pandemic Formulation 46508 Given 05/07/2008 Influenza Virus 3Yrs & Over 60850 Given 05/07/2008 Influenza Virus 3Yrs & [id number] Over 98092 Given 09/02/2006 Zoster (Zostavax) 71732 Given 12/10/2005 Tetanus And Diptheria (Td) For Adult Use Preservative Free 35650 Given 02/09/2005 Pneumonia Vaccine Vital Signs Date Vital Result Comment 02/05/2019 9:45am Height 65.5 inches 5'5.50" Weight 115.00 lb Heart Rate 67 /min BP Systolic 110 mmHg BP Diastolic 64 mmHg Body Temperature 98.1 F O2 % BldC Oximetry 94 % BMI (Body Mass Index) 18.8 kg/m2 01/09/2019 11:10am Height 65.5 inches 5'5.50" Weight 112.12 lb Heart Rate 70 /min BP Systolic Sitting 128 mmHg Rue reg cuff BP Diastolic Sitting 80 mmHg Rue reg cuff Respiratory Rate 22 /min O2 % BldC Oximetry 95 % On Ra BMI (Body Mass Index) 18.4 kg/m2 12/28/2018 10:09am Height 65.5 inches 5'5.50" Weight 113.00 lb Heart Rate 77 /min BP Systolic Sitting 101 mmHg BP Diastolic Sitting 63 mmHg Body Temperature 97.6 F O2 % BldC Oximetry 93 % BMI (Body Mass Index) 18.5 kg/m2 12/20/2018 11:03am Height 65.5 inches 5'5.50" Weight 115.50 lb Heart Rate 82 /min BP Systolic 129 mmHg BP Diastolic 81 mmHg Body Temperature 97.8 F O2 % BldC Oximetry 96 % BMI (Body Mass Index) 18.9 kg/m2 12/11/2018 9:43am Height 65.5 inches 5'5.50" Weight [...] H/L Range Note CBC Auto Diff 02/13/2018 [facility] White Blood 5.6 10^3/uL N 3.5-10.[address] [place] [address] [phone] Red Blood Count 4.58 10^6/uL N 4.00-5.40 [...] Cells % 0 Comp Metabolic Panel 02/13/2018 [facility] Sodium 141 mmol/L N 135-[address] [place] [address] [phone] Potassium 4.1 mmol/L N 3.5-5.0 Chloride 104 [...] Egfr 90.4 >60 1 Laboratory test 02/13/2018 [facility] C Reactive < 1.00 mg/L N <8.[address] [place] [address] [phone] Tick-Borne Panel 02/13/2018 [facility] Babesia Negative Negative PCR Blood [address] [place] [address] [phone] Babesia ducani Negative Negative Babesia divergens/Mo-1 Negative Negative 2 Anaplasma phagocytophilum Negative Negative Ehrlichia chaffeensis Negative Negative Ehrlichia ewingii/canis Negative Negative Ehrlichia muris-like Negative Negative 3 B. miyamotoi PCR, B Negative Negative 4 Lyme Disease 02/13/2018 [facility] B burgdorferi Negative Negative PCR [address] PCR, [place] [address] [phone] B mayonii PCR Negative Negative B garinii/B afzelii PCR Negative Negative Lyme Disease PCR Comment See Comment 5 Laboratory test 02/13/2018 [facility] TSH (Thyroid 1.09 mcIU/mL N 0.34-5.[address] Stim [place]orm) [place] [address] [phone] Comp Metabolic 01/16/2018 [facility] Sodium 140 mmol/L N 135- [address] [place] [address] [phone] Potassium 3.9 mmol/L N 3.5-5.0 Chloride 102 [...] 94.7 >60 6 CBC Auto Diff 01/16/2018 [facility] White Blood 6.4 10^3/uL N 3.5-10.[address] [place] [address] [phone] Red Blood Count 4.51 10^6/uL N 4.00-5.40 [...] Blood Cells % 0 Laboratory test 01/16/2018 [facility] Lyme Disease Positive Negative [address] [place] [address] [phone] Lyme Western Blot 01/16/2018 [facility] Lyme Disease Negative Negative [address] IgG Ab WB [place], [place] [id number] [phone] Lyme Disease IgG Bands Present p41,p39 kDa Lyme Disease IgM Ab WB Positive Abnormal Negative Lyme Disease IgM Bands Present p41,p39 kDa Lyme Disease Interpretation See Comment 8 Lipid Profile 09/23/2017 [facility] Triglycerides 85 mg/dL 9 (Trig/Chol/HDL) [address] [place], [place] [id number] [phone] Cholesterol 224 mg/dL 10 HDL Cholesterol 62.5 mg/dL 11 LDL Cholesterol 145 mg/dL 12 Laboratory test 09/23/2017 [facility] Glucose 83 mg/dL N 70- [address] [place], [place] [id number] [phone] Urine Culture And 08/24/2017 [facility] Urine SEE RESULT 13 , Sensitivities [address] Culture BELOW 14 [place] [address] [phone] Poc Urinalysis 08/24/2017 [facility] Poc Negative Negative [address] Glucose, [place] [address] Urine [phone] Poc Bilirubin, Urine Negative Negative Poc Ketone, Urine Trace Abnormal Negative Poc Specific [place], Urine 1.015 N 1.010-1.030 Poc Blood, Urine Negative Negative Poc pH, Urine 7.0 N 5-9 Poc Protein, Urine Negative Negative Poc Urobilinogen, Urine 0.2 Negative Poc Nitrite, Urine Negative Negative Poc Leukocytes, Urine Trace Abnormal Negative Poc Color, Urine Yellow Poc Clarity, Urine Clear 15 Laboratory test 10/20/2016 [facility] Vitamin D 44.1 ng/mL N 30-[address] Total 25(Oh) [place], [place] [id number] [phone] TSH (Thyroid Stim Horm) 1.10 mcIU/mL N 0.34-5.60 Vitamin B12 1335 pg/mL High 180-914 16 Lipid Profile 09/20/2016 [facility] Triglycerides 75 mg/dL N 17 (Trig/Chol/HDL) [address] [place] [address] [phone] Cholesterol 223 mg/dL N 18 HDL Cholesterol 75.2 mg/dL N 19 LDL Cholesterol 133 mg/dL N 20 Laboratory test 09/20/2016 [facility] Glucose 80 mg/dL N 70- [address] [place] [address] [phone] Basic Metabolic Panel 04/18/2015 [facility] Sodium 142 mmol/L N 133-[address] [place] [address] [phone] Potassium 4.1 mmol/L N 3.5-5.0 Chloride 104 [...] N >60 21 Laboratory test finding 04/18/2015 [facility] Cortisol 17.14 ?g/ dL N [address] [place] [address] [phone] Magnesium 2.2 mg/dL N 1.9-2.7 Laboratory 04/09/2015 [facility] Surgical SEE RESULT 23 test finding [address] [place] [address] [phone] Factor 5 04/03/2015 [facility] Factor V Heterozygous N Negative Leiden [address] [place] [address] Mutation [phone] Factor V Leiden Interpretation See Comment N 24 Factor V Leiden Reviewed By Abril Noel M.D. N 25 Laboratory test 04/03/2015 [facility] Factor V 129 % N 70 - [address] [place] [address] [phone] Vitamin D, 25 07/03/2013 [facility] 25-Hydroxy <4.0 Hydroxy 101 Vitamin D2 ng/mL [place], [place] [id number] [phone] 25-Hydroxy Vitamin D3 40 ng/mL 25-Hydroxy Vitamin D Total 40 ng/mL 27 Basic Metabolic Panel 07/03/2013 [facility] Sodium 141 mmol/L 133-145 [address] [place] [address] [phone] Potassium 3.7 mmol/L 3.5-5.0 Chloride 105 mmol/L 101-111 Co2 Carbon Dioxide 31.0 mmol/L 22-32 Anion Gap 5.0 mmol/L 2-11 Glucose 88 mg/dL 70-100 Blood Urea Nitrogen 17 mg/dL 6-24 Creatinine 0.70 mg/dL 0.50-1.40 BUN/Creatinine Ratio 24.3 High 8-20 Calcium 9.9 mg/dL 8.1-9.9 Egfr Non- 81.8 >60 Egfr 105.2 >60 28 Laboratory test 07/03/2013 [facility] Vitamin B12 739 pg/mL 180-[address] [place] [address] [phone] TSH (Thyroid Stimulating Horm) 1.85 miu/mL 0.34-5.60 CBC Auto Diff 07/03/2013 [facility] White Blood 6.5 10^3/uL 4.8-10.[address] [place] [address] [phone] Red Blood Count 4.49 10^6/uL 4.0-5.4 Hemoglobin [...] Cells % 0 Acid Fast Smear 05/03/2013 [facility] Acid Fast Stain (SEE NOTE ) [address] [place] [place] [address] [phone] Laboratory test 05/03/2013 [facility] Fungal Cult - (SEE NOTE) [address] [place] [address] [phone] Mycobacterial Culture See Comment 31 Fungal Cult 05/03/2013 [facility] Fungal Cult - (SEE NOTE) 32 Other Sources [address] [place] [place] [address] [phone] Basic Metabolic 03/28/2013 [facility] Sodium 142 mmol/L 133- [address] [place] [address] [phone] Potassium 4.1 mmol/L 3.5-5.0 Chloride 105 mmol/L 101-111 Co2 Carbon Dioxide 30.0 mmol/L 22-32 Anion Gap 7.0 mmol/L 2-11 Glucose 89 mg/dL 70-100 Blood Urea Nitrogen 19 mg/dL 6-24 Creatinine 0.70 mg/dL 0.50-1.40 BUN/Creatinine Ratio 27.1 High 8-20 Calcium 10.1 mg/dL High 8.1-9.9 Egfr Non- 82.0 >60 Egfr 105.5 >60 33 Cardiolipin 03/28/2013 [facility] Cardiolipin IgG <4.0 GPL 34 Igg,Igm,Iga AB [address] [place] [address] [phone] Cardiolipin IgM <4.0 MPL 35 Cardiolipin IgA <4.0 APL 36 Laboratory test 03/28/2013 [facility] Protein C 130 % 70 - 150 [address] [place] [address] [phone] Protein C Antigen 124 % 70-150 38 Protein S Activity 79 % 65 - 160 39 Protein S Antigen 83 % 65 - 160 40 Laboratory test 02/15/2013 [facility] Blood Urea 16 mg/dL 6- [address] [place] [address] [phone] Creatinine 02/15/2013 [facility] Creatinine 0.70 mg/dL 0.50- 1.[address] [place] [address] [phone] Egfr Non- 82.0 >60 Egfr 105.5 >60 41 Culture 02/13/2013 [facility] Sputum Culture (SEE 42 Sputum/Sensitivity [address] Gram Stain NOTE) [place] [address] [phone] Protime W/ Inr 02/12/2013 [facility] Prothrombin Time 47.2 Inr 3.9 Order 02/09/2013 [facility] peak flow see VS Nebulizer Treatment done Protime W/ Inr 02/05/2013 [facility] Prothrombin Time 32.5 Inr 2.7 Protime W/ Inr 01/29/2013 [facility] Prothrombin Time 18.6 Inr 1.6 Protime W/ Inr 01/25/2013 [facility] Prothrombin Time 14.1 Inr 1.2 Protime W/ Inr 01/18/2013 [facility] Prothrombin Time 31.3 Inr 2.6 Protime W/ Inr 01/15/2013 [facility] Prothrombin Time 43.7 Inr 3.6 Protime W/ Inr 01/12/2013 [facility] Prothrombin Time 30.1 Inr 2.5 Protime W/ Inr 12/29/2012 [facility] Prothrombin Time 28.0 Inr 2.3 Lupus 12/20/2012 [facility] Prothrombin 20.5 sec Abnormal 43 Anticoagulant AB [address] Time([place]) [place] [address] [phone] Lac Inr 1.8 Lac PT Mix 1:1 11.4 sec 44 Lac Aptt 35 sec 26 - 36 Lac DRVVT Screen Ratio 0.9 ratio 0.0 - 1.1 Lup Hexthrombin Time (Bovine) 20 sec 15 - 23 45 Lupus Anticoagulant Interpreta See Comment 46 Lupus Anticoagulant Review By Nadeem Angel <SEE NOTE> 47 Special Coagulation Interp Performed 48 Laboratory 12/20/2012 [facility] Immunoglobulin G 695 Abnormal 767 - 49 test finding [address] mg/dL 1590 [place] [address] [phone] Immunoglobulin M 130 mg/dL 37 - 286 50 Immunoglobulin A 76 mg/dL 61 - 356 51 Anti-Thrombin III Complex 3.3 ng/mL <4.3 52 Vitamin D 1,25-Dihydroxy 41 pg/mL 18-78 53 Laboratory test finding 12/20/2012 [facility] Inr 1.60 High 0.87-0.[address] [place] [address] [phone] TSH (Thyroid Stimulating Horm) 1.71 miu/mL 0.34-5.60 Protime W/ Inr 12/07/2012 [facility] Prothrombin Time 28.8 Inr 2.4 Laboratory test 11/30/2012 [facility] Inr 2.3 /PT 27.7 finding Lipid Profile 11/28/2012 [facility] Triglycerides 44 mg/dL 40 -200 (Trig/Chol/HDL) [address] [place] [address] [phone] Cholesterol 234 mg/dL High Less than 200 HDL Cholesterol 70 mg/dL High 40-60 54 Cholesterol/HDL Ratio 3.3 Average 1-4.44 LDL Cholesterol 155.2 mg/dL High Less Than 100 55 Factor 5 11/28/2012 [facility] Factor V Heterozygous Negative Leiden [address] [place] [address] Mutation [phone] Factor V Leiden Interpretation See Comment 56 Factor V Leiden Reviewed By See Comment 57 Factor II 11/28/2012 [facility] Prothrombin Negative Negative (Prothrombin) [address] [place] [address] [phone] Prothrombin [id number] Interp See Comment 58 Prothrombin Mutation Review By See Comment 59 Laboratory test 11/28/2012 [facility] Homocysteine 9 mcmol/L [address] [place] [address] [phone] Protime W/ Inr 11/27/2012 [facility] Prothrombin Time 31.6 Inr 2.6 Laboratory test 11/09/2012 [facility] C Reactive 0.7 mg/dL High Less than finding [address] Protein 0.5 [place] [address] [phone] Laboratory test 11/09/2012 [facility] Inr 0.83 Low 0.87-0.[address] [place] [address] [phone] D Dimer Quantitative < 200 ng/mL Less Than 230 61 CBC Auto Diff 11/09/2012 [facility] White Blood 5.7 10^3/uL 4.8-10.[address] [place] [address] [phone] Red Blood Count 4.40 10^6/uL 4.0-5.4 Hemoglobin [...] Cells % 0.1 Comp Metabolic Panel 11/09/2012 [facility] Sodium 141 mmol/L 133-[address] [place] [address] [phone] Potassium 3.9 mmol/L 3.5-5.0 Chloride 106 mmol/L [...] 126.0 >60 62 CBC Auto Diff 03/17/2012 [facility] White Blood 5.2 CUMM 4.8- 10.[address] [place] [address] [phone] Red Cell Count 4.32 CUMM 4.2-5.4 Hemoglobin [...] Abs Basophils 0 0-0.2 Laboratory test 03/17/2012 [facility] Monospot NEGATIVE Negative finding 101 [place] [address] [phone] Rapid Strep A 03/17/2012 [facility] M 63 101 [facility] --- <[place] [address] NOTE> [phone] Laboratory test 03/17/2012 [facility] Troponin-I 0 NG/ML 0- 0.06 64 finding 101 [place] [address] [phone] CKMB 03/17/2012 [facility] CKMB In NG/ML 2.0 NG/ML 0.3-4.0 [address] [place] [address] [phone] % CKMB 2 %MB 0-9 65 Laboratory test 03/17/2012 [facility] CPK (Creatine 93 U/L 0- 170 finding 101 [facility] Kinase) [place] [address] [phone] Comp Metabolic 03/17/2012 [facility] Sodium 141 135-[address] mmol/[place] [address] [phone] Potassium 3.8 mmol/L 3.5-5.0 Chloride 105 mmol/L [...] eGFR 105.8 > 60 68 Surgical 10/22/2011 [facility] Surgical [address] Pathology <SEE NOTE> [place] [address] [phone] Laboratory 08/31/2011 [facility] Iron Total 129 g/dL 28-1 [address] 70 [place] [address] [phone] Ferritin 67 NG/ML 11.0-307 Vitamin B12 588 pg/mL 180-914 Folic Acid 24.9 NG/ML See Below 71 TSH 1.19 MIU/ML 0.34-5.60 Manual Differential 05/06/2011 [facility] Polysegmented 78 % 38-[address] [place] [address] [phone] Band Neutrophil 2 % 0-8 Lymphocyte 11 % Low 25-47 Monocyte 5 % 0-13 Eosinophil 4 % 0-6 Absolute Neutrophil Count 5.2 Anisocytosis SLIGHT Macrocytosis SLIGHT CBC Auto Diff 05/06/2011 [facility] White Blood 6.5 CUMM 4.8- 10.[address] [place] [address] [phone] Red Cell Count 4.11 CUMM Low 4.2-5.4 Hemoglobin 14.0 g/dL 12.0-16.0 Hematocrit 40 % 35-47 Mean Corpuscular Volume 98 um3 High 79-97 Mean Corpuscular Hemoglob 34 pg High 27-31 Mean Corpuscular HGB Cone 35 g/dL 32-36 Redcell Distribution WDTH 13 % 10.5-15 Platelet Count 247 CUMM 150-450 Mean Platelet Volume 9.6 um3 7.4-10.4 72 Basic Metabolic Panel 05/06/2011 [facility] Sodium 139 mmol/L 135-[address] [place] [address] [phone] Potassium 4.1 mmol/L 3.5-5.0 Chloride 105 mmol/L 101-111 Co2 (Carbon Dioxide) 28.0 mmol/L 22-32 Anion Gap 6.0 mmol/L 2-11 73 Glucose 111 mg/dL High 70-100 BUN 18 mg/dL 6-24 Creatinine 0.6 mg/dL 0.50-1.40 One Over Creatinine 1.66 BUN/Creatinine Ratio 30.0 High 8-20 Calcium 9.8 mg/dL 8.1-9.9 eGFR Non- 98.5 > 60 eGFR 126.7 > 60 74 Laboratory test 05/06/2011 [facility] Erythrocyte Sed 19 MM/HR 0-[address] [place] [address] [phone] Celiac Panel 09/05/2009 [facility] Endomysial Abs Negative Negative [address] [place] [address] [phone] Gliadin Igg <1.0 U () 76 Gliadin Iga <1.0 U () 77 Reticulin AB Negative Negative 78 Surgical 09/05/2009 [facility] Surgical [address] Pathology <SEE NOTE> [place] [address] [phone] Laboratory 07/24/2009 [facility] Campylobacter NF [address] [place] [address] [phone] Stool Cult Sensitivity NF 81 Shiga Toxin 1 And 2 (Ehec) N^NEGATIVE BY IM <SEE NOTE> 82 O P: Giardia/Crypto Screen Giardia and cryp <SEE NOTE> 83 Stool Specimen 07/24/2009 [facility] Stool Specimen TNP [address] [place] [address] [phone] Creatinine 07/02/2009 [facility] Creatinine 0.90 0.50-[address] mg/dL .40 [place] [address] [phone] One Over Creatinine 1.10 eGFR Non- 65.8 > 60 eGFR 79.6 > 60 85 Laboratory test 07/02/2009 [facility] BUN 16 mg/dL 6-[address] [place] [address] [phone] Laboratory test 06/24/2009 [facility] Cytology [address] ---- <[place] [address] NOTE> [phone] Laboratory test 01/07/2009 [facility] Iron Total 121 g/dL 28-[address] [place] [address] [phone] Ferritin 59 NG/ML 11.0-307 Vitamin B12 560 pg/mL 180-914 Iron & Iron 11/18/2008 [facility] Iron Total 175 g/dL High 28-170 Binding Capacity [address] [place] [address] [phone] Unsaturated Iron Binding 239 g/dL Total Iron Binding Capacity 414 g/dL 250-450 % Iron Saturation 42 % 15-55 CBC With 11/18/2008 [facility] White Blood 4.7 CUMM Low 4.8- 10.8 Electronic Diff [address] [place] [address] [phone] Red Cell Count 4.39 CUMM 4.2-5.4 Hemoglobin [...] 0-0.6 Abs Basophils 0 0-0.2 Protein 11/18/2008 [facility] Albumin 3.51 GM/DL 3.0-4.35 Electrophoresis Serum [address] [place] [address] [phone] Alpha 1 0.20 GM/DL 0.09-0.33 Alpha 2 0.97 GM/DL 0.59-1.18 Beta 0.83 GM/DL 0.68-1.02 Gamma 0.80 GM/DL 0.76-1.60 Albumin % 55.7 % 46-63 Alpha 1 % 3.2 % 1.2-5.3 Alpha 2 % 15.4 % 9-17 Beta % 13.2 % 10-16 Gamma % 12.7 % 12-22 A/G Ratio 1.3 0.9-2 Total Protein 6.3 GM/DL 6.2-8.1 Spep Comments (SEE NOTE) 87 Comp Metabolic Panel 11/18/2008 [facility] Sodium 140 mmol/L 135-145 [address] [place] [address] [phone] Potassium 4.5 mmol/L 3.5-5.0 Chloride 103 mmol/L [...] 31 U/L 12-42 Vitamin D, 25 11/18/2008 [facility] 25-Hydroxy Vitamin <4.0 ng/ mL () Hydroxy [address] D2 [place] [address] [phone] 25-Hydroxy Vitamin D3 28 ng/mL () 25-Hydroxy Vitamin D Total 28 ng/mL () 91 Vitamin B12 And 11/18/2008 [facility] Vitamin B12 646 pg/mL 180-914 Folate Serum [address] [place] [address] [phone] Folic Acid > 20.0 NG/ML High 2-16 [...] developed and its performance characteristics determined by [facility] in a manner consistent with CLIA requirements. This test has not been cleared or approved by the U.S. Food and Drug Administration. 3 ADDITIONAL INFORMATION This test was developed and its performance characteristics determined by [facility] in a manner consistent with CLIA requirements. This test has not been cleared or approved by the U.S. Food and Drug Administration. 4 ADDITIONAL INFORMATION This test was developed and its performance characteristics determined by [facility] in a manner consistent with CLIA requirements. This test has not been cleared or approved by the U.S. Food and Drug Administration. Test Performed by: [facility] - [address] [address] 5 A negative result does not exclude infection with Borrelia burgdorferi. Serologic testing as per CDC guidelines may be indicated. ADDITIONAL INFORMATION This test was developed and its performance characteristics determined by [facility] in a manner consistent with CLIA requirements. This test has not been cleared or approved by the U.S. Food and Drug Administration. Test Performed by: [facility] - [address] [address] 6 Because ethnic data is not always [...] been ordered by reflex. Test Performed by: [facility] [address] [place] [address] 8 Consistent with early infection with Borrelia [...] screening test (e.g., EIA). Test Performed by: [facility] - [facility] [address] [place] [address] 9 Desirable: <150 Borderline High: 150-199 High: 200-499 Very High: >500 10 Desirable: <200 Borderline High: 200-239 High: >239 11 Low: <40 Desirable: 40-60 High: >60 12 Desirable: <100 Near Optimal: 100-129 Borderline High: 130-159 High: 160-189 Very High: >189 13 [id number] SEE RESULT BELOW Name: ELHAM COLIN : [address]: Concepcion Cherry MD Acct: [id number] Unit: [id number] AGE: 77 Location: [facility] Re08/24/17 SEX: F Status: DEP ER SPEC: [id number] RUT: 08/24/17 [facility] DR: Concepcion Cherry MD REQ: [id number] RECD: 08/24/17 STATUS: QUEENIE HOOK DR: Tony Estrada MD _ SOURCE: URINE SPDESC: ORDERED: Urine Culture COMMENTS: [id number] Procedure Result Reported Site Urine Culture Final 08/25/17- 09 ML No Growth (<1,000 CFU/mL) * ML - MAIN LAB (PSC1) . END OF REPORT * ML=Testing performed at Main Lab DEPARTMENT OF PATHOLOGY, [address] [place] [address] Huang Zamudio M.D. Director [facility] # [id number] 15 Gis Consultant: [id number] Normal Range 180 to 914 Indeterminate [...] [address]: Kimo Vang MD Acct: [id number] Unit: [id number] AGE: 74 Location: ENDO Re04/09/15 SEX: F Status: REG REF SPEC: [id number] RUT: 04/09/15-1017 [facility] [address]: Kimo Vang MD REQ: [id number] RECD: 04/09/15 STATUS: ASAD HOOK DR: Tony [...] performed at Main Lab DEPARTMENT OF PATHOLOGY, [address] [place] [address] Huang Zamudio M.D. 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 The factor V Leiden (R506Q) mutation is a risk factor for venous thromboembolism and recurrent miscarriage, and possibly a risk factor for complications of and for arterial thrombosis. If clinically indicated, suggest Coagulation Consultation 96527 (Thrombophilia Profile) to complete the evaluation for an inherited or acquired thrombosing disorder (i.e., thrombophilia). Consider genetic consultation and counseling of potentially affected family members regarding laboratory testing. ADDITIONAL INFORMATION This test is a direct mutation analysis using PCR amplification, signal generation and release by cleavage of sequence specific alleles ([employer], [employer], [employer], [place]). 25 Test Performed by: [place] [address] Fire Patrol: Brendon Castellano II, M.D., Ph.D. 26 Test Performed by: [place] [address] Fire Patrol: Brendon Castellano II, M.D., Ph.D. 27 -- REFERENCE VALUE -- 25-HYDROXY D TOTAL (D2+D3) Optimum levels in the healthy population are 20-50, patients with bone disease may benefit from higher levels within this range. Test Performed by: [place] [address] Fire Patrol: Fadi Jewell III, M.D. 28 Because ethnic [...] <15 (or dialysis) 29 RUN DATE: 05/03/13 [facility] LAB LIVE PAGE 1 RUN TIME: 1610 [address] [place], [place] [address] Specimen Inquiry Name: THEODORAELHAM Alie : [address]: Aneesh Fofana MD Acct: [id number] Unit: [id number] AGE: 72 Location: [facility] Re05/03/13 SEX: F Status: REG REF SPEC: [id number] RUT: 05/03/13-1099 [facility] [address]: Aneesh Fofana MD REQ: [id number] RECD: 05/03/13 STATUS: QUEENIE HOOK DR: Tony Estrada MD _ SOURCE: RESP [facility]: ORDERED: Acid Fast Stain Procedure Result Verified [...] performed at Main Lab DEPARTMENT OF PATHOLOGY, [facility] [employer] [place] [address] Huang Zamudio M.D. Director [facility] Permit #[id number] RUN DATE: 05/21/13 [facility] LAB LIVE PAGE 1 RUN TIME: 1417 [facility] [employer] [place], [place] [address] Specimen Inquiry Name: ELHAM COLIN : [address]: Aneesh Fofana MD Acct: [id number] Unit: [id number] AGE: 72 Location: [facility] Re05/03/13 SEX: F Status: REG REF SPEC: [id number] RUT: 05/03/13-1099 [facility] [address]: Aneesh Fofana MD REQ: [id number] RECD: 05/03/13 STATUS: RES OTHR DR: Tony Estrada MD _ SOURCE: RESP SPDESC: ORDERED: Fungal - Other Procedure Result Verified Site Fungal Cult - Other Sources Preliminary 05/21/13- 6551 ML Organism 1 YEAST END OF REPORT * ML=Testing performed at Main Lab DEPARTMENT OF PATHOLOGY, [address] [place] [address] Huang Zamudio M.D. Director [facility] Permit #[id number] 31 SOURCE: SPUTUM MYCOBACTERIAL CULTURE FINAL MYCOBACTERIUM AVIUM COMPLEX Test Performed by: [facility] - [address] [address] [employer] Patrol: Fadi Jewell III, M.D. 32 RUN DATE: 05/28/13 [facility] LAB LIVE PAGE 1 RUN TIME: [address] [place] [address] Specimen Inquiry Name: ELHAM COLIN : [address]: Aneesh Fofana MD Acct: [id number] Unit: [id number] AGE: 72 Location: [facility] Re05/03/13 SEX: F Status: REG REF SPEC: [id number] RUT: 05/03/13-1099 [facility] [address]: Aneesh Fofana MD REQ: [id number] RECD: 05/03/13 STATUS: QUEENIE HOOK DR: Tony Estrada MD _ SOURCE: RESP [facility]: ORDERED: Fungal - Other Procedure Result Verified Site Fungal Cult - Other Sources Final 05/28/13- 1044 ML Organism 1 GRACIE ALBICANS END OF REPORT * ML=Testing performed at Main Lab DEPARTMENT OF PATHOLOGY, [address] [place] [address] Huang Zamudio M.D. Director [facility] Permit #[id number] 33 Because ethnic data is not always [...] VALUE -- <10.0 (Negative) Test Performed by: [place] [address] Fire Patrol: Fadi Jewell III, M.D. 37 Test Performed by: [place] [address] [employer] Patrol: Fadi Jewell III, M.D. 38 Test Performed by: [place] [address] Fire Patrol: Fadi Jewell III, M.D. 39 Heparin levels [...] absence of anticoagulation therapy. Test Performed by: [place] [address] Fire Patrol: Fadi Jewell III, M.D. 40 Test Performed by: [place] [address] [employer] Patrol: Fadi Jewell III, M.D. 41 Because ethnic [...] <15 (or dialysis) 42 RUN DATE: 02/16/13 [facility] LAB LIVE PAGE 1 RUN TIME: [address], [place], [place] [address] Specimen Inquiry Name: THEODORAELHAM Q : [address]: Ivan Estrada MD Acct: [id number] Unit: [id number] AGE: 72 Location: [facility] Re02/13/13 SEX: F Status: REG REF SPEC: [id number] RUT: 02/13/13-[address]: Tony Estrada MD REQ: [id number] RECD: 02/13/13 STATUS: COMP _ SOURCE: SPUTUM SPDESC: ORDERED: Sputum Cult/GS QUERIES: Medent Number [id number] Procedure Result Verified Site Sputum Smear Final [...] performed at Main Lab DEPARTMENT OF PATHOLOGY, [facility] [employer] [place] [address] Huang Zamudio M.D. Director [facility] Permit #[id number] RUN DATE: 02/16/13 [facility] LAB LIVE PAGE 2 RUN TIME: 1031 [facility] [employer] [place], [place] [address] Specimen Inquiry Patient: ELHAM COLIN [id number] (Continued) Specimen: [id number] Collected: 02/13/13-1399 Received: 02/13/13-1729 (Continued) Procedure Result Verified Site Sputum Culture Final (continued) Contact the Microbiology Department for any additional antibiotic reporting. END OF REPORT * ML=Testing performed at Main Lab DEPARTMENT OF PATHOLOGY, [address] [place] [address] Huang Zamudio M.D. Director [facility] Permit #[id number] 43 -- REFERENCE VALUE -- 10.3 - 12.8 44 -- REFERENCE VALUE -- 10.3 - 12.8 Test Performed by: [facility] [address] [place] [address] Fire Patrol: Fadi Jewell III, M.D. 45 Test Performed by: [place] [address] Fire Patrol: Fadi Jewell III, M.D. 46 IMPRESSION: No evidence of a lupus anticoagulant (LAC). COMMENTS: Mixing study of prolonged prothrombin time (PT) suggests a coagulation factor deficiency or warfarin effect. The normal activated partial thromboplastin time (APTT) and dilute Ed viper venom time (DRVVT) provide no evidence of a lupus anticoagulant (LAC). 47 Nathan Hawthorne M.D. Test Performed by: [place] [address] [employer] Patrol: Fadi Jewell III, M.D. 48 Test Performed by: [place] [address] [employer] Patrol: Fadi Jewell III, M.D. 49 Test Performed by: [place] [address] Fire Patrol: Fadi Jewell III, M.D. 50 Test Performed by: [place] [address] Fire Patrol: Fadi Jewell III, M.D. 51 Test Performed by: [place] [address] Fire Patrol: Fadi Jewell III, M.D. 52 Pre-analytical conditions such as a difficult draw may spuriously increase test results. Test Performed by: [facility] [address] [address] 53 Test Performed by: [place] [address] Fire Patrol: Fadi Jewell III, M.D. 54 HDL Interpretation: [...] thrombosis. If clinically indicated, suggest Coagulation Consultation 06937 (Thrombophilia Profile) to complete the evaluation for an inherited or acquired thrombosing disorder (i.e., thrombophilia). Consider genetic consultation and counseling of potentially affected family members regarding laboratory testing. This test is a direct mutation analysis using PCR amplification, signal generation and release by cleavage of sequence specific alleles ([employer], [employer], [place], [place]). 57 RESULT: Jerome Bonilla M.D., Ph.D. Test Performed by: [place] [address] Fire Patrol: Fadi Jewell III, M.D. 58 This individual DOES NOT have the Prothrombin [id number] mutation. Although the Prothrombin [id number] mutation is absent, the individual may have other genetic and environmental risk factors for thrombosis. If clinically indicated, suggest Coagulation Consultation 96376 (Thrombophilia Profile) to complete the evaluation for an inherited or acquired thrombosing disorder (i.e., thrombophilia). Consider genetic consultation and counseling of potentially affected family members regarding laboratory testing. This test is a direct mutation analysis using PCR amplification, signal generation and release by cleavage of sequence specific alleles ([employer], [employer], [place], [place]). 59 RESULT: Jerome Bonilla M.D., Ph.D. Test Performed by: [place] [address] Fire Patrol: Fadi Jewell III, M.D. 60 -- REFERENCE VALUE -- <=13 (Fasting) Test Performed by: [place] [address] [employer] Patrol: Fadi Jewell III, M.D. 61 Please note: [...] <15 (or dialysis) 63 RUN DATE: 03/17/12 [facility] [place] [facility] NMI LIVE PAGE 1 RUN TIME: 2106 Specimen Inquiry RUN USER: INTERFACE Name: THEODORAELHAM Q Status: REG ELAINE Re03/17/12 Age/Sex: 71/F Unit#: [id number] Location: [facility]. : [birth year] SPEC #: [id number] RUT: 03/17/12 STATUS: RES REQ #: [id number] RECD: 03/17/[address]: Lan Mayberry DO SOURCE: THROAT ENTR: 03/17/[address]: Natalie THOMPSON,Ivan Ulrich [facility]: ORDERED: RAPID STREP A, THROAT-BETA STR Procedure Result Verified Site > RAPID STREP A Final 03/17/12- 2105 ML RAPID STREP NEGATIVE FOR GROUP A STREP BY ENZYME IMMUNOASSAY The spun paste machine operator and regulatory agencies both recommend that a throat culture for beta strep be performed if a Rapid Group A Strep assay yields a negative result. Therefore a culture will be automatically performed on all negative samples. THROAT-BETA STREP CULTURE - Pending - [facility] State Permit #[id number] [address] [place] [address] DEPARTMENT OF PATHOLOGY, [address] [place] [address] [facility] Permit #[id number] Huang Zamudio M.D. Director Valarie Rico M.D. [employer] 64 New Reference Range and Interpretation effective 05/04/2002 TnI (ng/ml) INTERPRETATION Less Than 0.06 ng/mL NOT SUPPORTIVE OF DIAGNOSIS OF [place] 0.06 - 0.50 ng/ml INDETERMINATE: SUGGEST SERIAL STUDIES IF CLINICALLY INDICATED. Greater than 0.5 ng/mL CONSISTENT WITH DIAGNOSIS OF NH . 65 INTERPRETATION %CK-MB < 5% NOT SUPPORTIVE OF DIAGNOSIS OF NH 5 - <10% INDETERMINATE; SUGGEST SERIAL STUDIES IF CLINICALLY INDICATED 10% OR > CONSISTENT WITH DIAGNOSIS OF [place] . 66 Anion gap measurement may be of limited value in the presence of any alkalosis, especially in a combined acid base disorder. . 67 A metabolite of Naproxen, O-desmethylnaproxen, has been shown to interfere with the Jenadrienik-Analia method for measuring total bilirubin. Samples from [...] (or dialysis) 69 ---- RUN DATE: 10/25/11 [facility] [place] [facility] NMI LIVE PAGE 1 RUN TIME: 1405 Specimen Inquiry RUN USER: INTERFACE -- Name: ELHAM COLIN Status: REG REF Re10/22/11 Age/Sex: 71/F Unit#: [id number] Location: [facility] : 39 -- Specimen: [id number] Spec Date:10/22/11- Dr: Kimo wilcox MD Spec [...] specimen is received in formalin labelled Elham QKaylen Wrights, Biopsy Cecal Polyp, and consists of a almanzar soft tissue fragment measuring 0.4 x 0.3 x 0.2 cm. Submitted entirely, one cassette. 2) The specimen is received in formalin labelled Elham Q. Theodora, Biopsy Right Colon Polyp, and consists of [...] 10/25/11 1402 -- -- DEPARTMENT OF PATHOLOGY, [address] [place] [address] [facility] Permit #[id number] Huang Zamudio M.D. Director Valarie Rico M.D. Tire Wrapper Dir angel -- 70 NON FASTING 71 [...] characteristics determined by Laboratory Medicine and Pathology, [facility]. This test has not been cleared or approved by the U.S. Food and Drug Administration. Test Performed by: [facility] Dpt of Lab Med and Pathology [address] [place] [address] Fire Patrol: Fadi Jewell III, M.D. 76 -- REFERENCE VALUE -- <20.0 (Negative) 20.0-30.0 (Weak Positive) >30.0 (Positive) Test Performed by: [facility] Dpt of Lab Med and Pathology [address] [place] [address] Fire Patrol: Fadi Jewell III, M.D. 77 -- REFERENCE VALUE -- <20.0 (Negative) 20.0-30.0 (Weak Positive) >30.0 (Positive) Test Performed by: [facility] Dpt of Lab Med and Pathology 49 [place] [address] Fire Patrol: Fadi Jewell III, M.D. 78 Test Performed by: [facility] Dpt of Lab Med and Pathology [address] [place] [address] Fire Patrol: Fadi Jewell III, M.D. 79 ---- RUN DATE: 09/09/09 [facility] [place] [facility] NMI LIVE PAGE 1 RUN TIME: 1516 Specimen Inquiry RUN USER: INTERFACE -- [id number] Status: REG REF Re09/05/09 Age/Sex: 69/F Unit#: [id number] Location: [facility] : 39 -- Specimen: [id number] SOUT Spec Date: 09/05/09 [facility] Dr: Kimo anderson MD Spec Type: SURGICAL P Received: 09/08/09 Copies to: Tony donahue [place] SPECIMEN 1) SMALL RIGHT COLON POLYP 2) CECAL POLYPS 3) SMALL CECAL POLYP 4) RIGHT SIDED COLON BIOPSY HISTORY POST-OP DIAGNOSIS: Multiple cecal polyps, diffuse melanosis coli CLINICAL INFORMATION: Abdominal pain, change in bowel habits, history of colon polyp GROSS DESCRIPTION 1) Specimen received in formalin labelled Elham Q. Theodora, Small Colon Polyp Biopsy and consists of multiple, almanzar, soft tissue fragments measuring 0.8 x 0.2 x 0.1 cm. in aggregate. Submitted entirely, one cassette. 2) Specimen received in formalin labelled Elham Q. Wrights, Cecal Polyps and consists of multiple, almanzar, soft tissue fragments measuring 1.3 x 0.6 x 0.4 cm. in aggregate. Submitted entirely, one cassette. 3) Specimen received in formalin labelled Elham Q. Wrights, Small Cecal Polyp and consists of two, almanzar, soft tissue fragments measuring 0.4 x 0.1 x 0.1 cm. Submitted entirely, one cassette. 4) Specimen received in formalin labelled Elham Q. Wrights, Right Side Colon Biopsies and consists of two, almanzar-brown, irregular, soft tissue fragments measuring 0.4 x 0.2 x 0.2 cm. in aggregate. Submitted entirely, one cassette. DIAGNOSIS 1) Colon, right, polyp, biopsy: A. Tubular adenoma. B. No high grade dysplasia or malignancy. 2) Colon, cecum, biopsy: A. Tubular adenoma. B. No high grade dysplasia or malignancy. -- DEPARTMENT OF PATHOLOGY, [address] [place] [id number] [facility] Permit #[id number] Gamal Joseph M.D. Assistant Dir ector -- -- RUN DATE: 09/09/09 [facility] [place] NMI LIVE PAGE 2 RUN TIME: 1516 Specimen Inquiry RUN USER: INTERFACE -- Name: ELHAM COLIN Accyahaira#: [id number] Status: REG REF Re09/05/09 Age/Sex: 69/F Unit#: [id number] Location: [facility] UlrichO.B. : 39 -- -- CONTINUED -- DIAGNOSIS (Continued) 3) Colon, cecum, biopsy: A. Tubular adenoma. B. No high grade dysplasia or malignancy. 4) Colon, right side biopsies: Hyperplastic change. Signed Electronically by: HUANG ZAMUDIO MD 09/09/09 1515 -- -- DEPARTMENT OF PATHOLOGY, [address] [place] [address] [facility] Permit #[id number] Huang Zamudio M.D. Director Valarie Rico M.D. Tire Wrapper Dir angel -- 80 NO GROWTH OF [...] is requested. Contact the Microbiology Department at [phone]. TEST LIMITATIONS: As with all diagnostic procedures, [...] (or dialysis) 86 ---- RUN DATE: 06/25/09 [facility] [place] [facility] NMI LIVE PAGE 1 RUN TIME: 1535 Specimen Inquiry RUN USER: INTERFACE -- Name: ELHAM COLIN [facility]#: [id number] Status: REG REF Re06/24/09 Age/Sex: 69/F Unit#: [id number] Location: [facility]. : 39 -- Specimen: [id number] SOUT Spec Date: 06/24/[address]: Dee piñaki BECKI Spec Type: CYTOLOGY Received: 06/25/09-1324 Copies to: [...] was evaluated with the assistance of the ThinPrep Pap Test Imaging System. The Pap Smear [...] three years. Initial evaluation performed by Cooper LOAIZA([facility]) 06/25/09 Final Interpretation electronically signed by: Cooper LOAIZA([facility]) 06/25/09 1535 -- -- DEPARTMENT OF PATHOLOGY, [address] [place] [address] [facility] Permit #[id number] Huang Zamudio M.D. Director Valarie Rico M.D. Tire Wrapper Dir angel -- 87 NORMAL ELECTROPHORETIC PATTERN. 88 Anion gap measurement may be of limited value in the presence of any alkalosis, especially in a combined acid base disorder. . 89 Note change in reference range as of 03/21/08. The change was based on recommendations from the [employer] [employer]. 90 Please note change in reference range effective 08 . 91 -- REFERENCE VALUE -- 25-HYDROXY D TOTAL (D2+D3) Optimum levels in the normal population are 25-80 Test Performed by: [facility] Dpt of Lab Med and Pathology [address] [place] [id number] Fire Patrol: Fadi Jewell III, M.D. Procedures Date Code Description Status 11/08/2018 70252 ECHO Transthoracic, Real-Time 2D With Doppler And Completed Color Flow 11/08/2018 76828 ECHO Transthoracic, Real-Time 2D With Doppler And Completed Color Flow 11/04/2018 41772 [facility]monary [facility] Measurement Heart Rate, Completed Oximetry 10/25/2018 [id number] Bone Mineral Density Test Completed 10/18/2018 97966 Diffusing Capacity Completed 10/18/2018 26486 Plethysmography Determination Lung Volumes & Per Completed Airway Resist 10/18/2018 24005 Pulmonary Function><Bronchodil Completed 10/21/2017 [id number] Mammogram Completed 10/20/2016 [id number] Mammogram Completed 10/20/2016 [id number] Bone Mineral Density Test Completed 04/01/2016 54823 Multiple Sleep Latency Or Wakefulness Testing Completed 03/31/2016 39476 Polysomnography Sleep Staging 4+ Parameters Completed 04/09/2015 [id number] Colonoscopy Completed 05/01/2014 95915 Inject Tendon Sheath Or Ligament Aponeurosis Eg Completed Plantar Fascia 10/10/2013 22365 Inject Tendon Sheath Or Ligament Aponeurosis Eg Completed Plantar Fascia 07/05/2013 012171856 Bone Mineral Density Test Completed 02/19/2013 31812 ECHO Transthoracic, Real-Time 2D With Doppler And Completed Color Flow 02/09/2013 91497 Inhalation TX For Acute Airway Obstruction Completed W/Nebulizer/Inhaler 12/28/2012 [id number] Mammogram Completed 10/20/2012 92425 EKG Tracing & Interpretation Completed 04/27/2012 81667 Rad Exam; Pelvis Completed 10/22/2011 15292049 Colonoscopy Completed 09/16/2010 [id number] Mammogram Completed 09/05/2009 [id number] Colonoscopy Completed 07/11/2008 99526108 Mammogram Completed 04/10/2008 346353978 Bone Mineral Density Test Completed 12/23/2006 83642 Echocardiogram Completed 12/23/2006 30250 Echocardiogram Completed 12/23/2006 58752 Pulse Doppler & Continuous Wave Completed 12/23/2006 80030 Color Doppler Completed 12/23/2006 31019 Color Doppler Completed Encounters Type Date Location Provider Dx Diagnosis Office Visit 02/05/2019 [facility] Internal Gauri Herbert MD M81.0 Age-related 9:40a Medicine - [facility] osteoporosis w/o current pathological fracture J47.9 Bronchiectasis, uncomplicated K21.9 Gastro-esophageal reflux disease without esophagitis Office Visit 01/09/2019 11:20a Pulmonology And Sleep Kameron Kapadia MD R05 Cough Services Of [facility] J47.9 Bronchiectasis, uncomplicated R91.8 Other nonspecific abnormal finding of lung field Office Visit 12/28/2018 10:10a [facility] Internal Nina J47.9 Bronchiectasis, Nikhil Cortez M.D. uncomplicated [facility] Office Visit 12/20/2018 11:00a [facility] Internal Trey J06.9 Acute upper Medicine - Favio, BREAD PANNER respiratory [facility] infection, unspecified J30.9 Allergic rhinitis, unspecified R05 Cough Office Visit 12/11/2018 Pulmonology And Kameron J47.9 Bronchiectasis, 9:45a Sleep Services Of MD Steffi uncomplicated [facility] R91.8 Other nonspecific abnormal finding of lung field J98.4 Other disorders of lung Office Visit 10/05/2018 2:20p [facility] Internal Tony Ulrich Z00.01 Encounter for Nikhil Estrada M.D.,[facility] general adult Suite R medical exam w abnormal findings J47.9 Bronchiectasis, uncomplicated R06.00 Dyspnea, unspecified M81.0 Age-related osteoporosis w/o current pathological fracture Z12.31 Encntr screen mammogram for malignant neoplasm of breast F32.9 Major depressive disorder, single episode, unspecified Office Visit 02/13/2018 10:40a [facility] Internal Tony Ulrich A69.20 Lyme diseaseNikhil M.D.,FACP unspecified Suite R Office Visit 01/27/2018 8:30a [facility] Internal Tony Ulrich A69.20 Lyme diseaseNikhil M.D.,FACP unspecified Suite R R59.0 Localized enlarged lymph nodes Office Visit 01/16/2018 11:00a [facility] Internal Tony Ulrich A69.20 Lyme diseaseNikihl M.D.,FACP unspecified Suite R R53.83 Other fatigue M54.89 Other dorsalgia Office Visit 12/28/2017 11:20a [facility] Internal Tony Ulrich R59.0 Localized Medicine - Suite Gamal Estrada,[facility] enlarged lymph R nodes M25.579 Pain in unspecified ankle and joints of unspecified foot Office Visit 09/02/2017 11:20a [facility] Internal Tony Estrada, M54.5 Low back pain Medicine - Jacob Yeung,FACP R N35.9 Urethral stricture, unspecified Office Visit 12/29/2016 10:10a [facility] Internal Tony Ulrich M81.0 Age-related Nikhil Estrada M.D.,[facility] osteoporosis w/o Suite R current pathological fracture Office Visit 09/24/2016 10:00a [facility] Internal Tony Ulrich Z00.01 Encounter for Nikhil Estrada M.D.,[facility] general adult Suite R medical exam w abnormal findings M81.0 Age-related osteoporosis w/o current pathological fracture J47.9 Bronchiectasis, uncomplicated R41.3 Other amnesia Z12.31 Encntr screen mammogram for malignant neoplasm of breast Office Visit 04/17/2015 [facility] Internal Tony Ulrich 289.81 primary 3:40p Nikhil Estrada M.D.,[facility] hypercoagulable state Suite R 458.0 Hypotension Orthostatic v04.81 Need For Prophylactic Vaccination & Inoculation/Influenza Office Visit 10/07/2014 11:30a [facility] Internal Cory Arteaga, 465.8 Upper Respiratory Medicine - Suite MICROBIOLOGY QUALITY CONTROL TECHNICIAN Infections Acute R Other Multiple Sites 465.9 URI Upper Respiratory Infections Acute Unspec Sites Office Visit 09/27/2014 2:20p [facility] Internal Tamara Mcdonald, V72.31 Routine Cottage Supervisor Medicine - N.P. Examination [facility] 564.1 Irritable Bowel Syndrome 625.8 Female Genital Organs Spec Symptoms Other Office Visit 05/01/2014 Orthopedic Denisha 727.04 Tenosynovitis 8:45a Services Of Gamal Tang Radial Styloid C.M.A. Office Visit 03/27/2014 Orthopedic Denisha 727.04 Tenosynovitis 9:30a Services Of Gamal Tang Radial Styloid C.M.A. Office Visit 10/10/2013 Orthopedic Denisha 727.04 Tenosynovitis 8:00a Services Of Gamal Tang Radial Styloid C.M.A. Office Visit 10/03/2013 [facility] Internal Tony Estrada, 726.90 Enthesopathy 4:00p Nikhil Matthews M.D.,FACP Unspec Site [facility] Office Visit 09/10/2013 [facility] Internal Tony Estrada, 785.6 Lymph Nodes 11:10a Nikhil Matthews M.D.,FACP Enlargement [facility] 716.83 Arthropathy Other Spec Forearm Office Visit 07/02/2013 10:50a [facility] Internal Tony Ulrich V70.0 Examination Nikhil Estrada M.D.,FACP General Medical [facility] Routine AT Health Care Facility 733.99 Bone & Cartilage Disorder Other 780.93 Memory Loss 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 [facility] Office Visit 01/29/2013 3:00p [facility] Kayleigh Ulrich 444.9 Embolism & Nikhil Estrada M.D.,FACP Thrombosis [facility] Arterial Of Unspec Artery V58.61 Anticoagulants Church Secretary (Current) Use Encounter 462 Pharyngitis Acute Office Visit 01/15/2013 9:50a [facility] Internal Nina Cortez, 461.8 Sinusitis Acute Nikhil - Morales Yeung Other V58.61 Anticoagulants Church Secretary (Current) Use Encounter 444.9 Embolism & Thrombosis Arterial Of Unspec Artery Office Visit 12/07/2012 3:40p [facility] Internal Tony Ulrich 444.9 Embolism & Nikhil Estrada M.D.,FACP Thrombosis [facility] Arterial Of Unspec Artery V58.61 Anticoagulants Penitentiary (Current) Use Encounter 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 Office Visit 11/23/2012 3:40p [facility] Internal Tony Ulrich 444.9 Embolism & Medicine - Gamal Estrada,FACP Thrombosis [facility] Arterial Of Unspec Artery 272.0 Hypercholesterolemia Pure Office Visit 10/20/2012 4:20p [facility] Internal Tony Ulrich 535.00 Gastritis Acute Medicine - Gamal Estrada,FACP W/O Hemorrhage [facility] 786.59 Pain Chest Other Office Visit 09/06/2012 4:00p [facility] Internal Tony Ulrich 466.0 Bronchitis Acute Medicine - Morales Estrada M.D.,FACP Office Visit 04/27/2012 1:00p Orthopedic Lito Ramirez, 719.65 Joint Symptoms Services Of Gamal Other Pelvic & C.M.A. Thigh Office Visit 04/04/2012 11:30a [facility] Internal Tony Ulrich 473.0 Sinusitis Medicine - Morales Estrada M.D.,FACP Chronic Maxillary 727.3 Bursitis Other V04.81 Need For Prophylactic Vaccination & Inoculation/Influenza Office Visit 03/20/2012 12:10p [facility] Internal Tony Ulrich 786.59 Pain Chest Medicine - Morales Estrada M.D.,FACP Other 462 Pharyngitis Acute 727.3 Bursitis Other Office Visit 07/23/2011 1:40p DO Not Use Log Manager AT Tony Estrada, 799.02 Hypoxemia Leroy Yeung,[facility] 780.52 Insomnia Unspecified Office Visit 02/25/2011 3:00p DO Not Use Doretha Ulrich V70.0 Examination AT Leroy Estrada M.D.,FACP General Medical Routine AT Health Care Facility 627.2 Menopausal Or Female Climacteric State, Symptomatic 564.1 Irritable Bowel Syndrome 346.11 Migraine W/O Aura W/Intractable W/O Status Migrainosus Office Visit 08/28/2010 1:20p DO Not Use Doretha Ulrich 346.10 Migraine Common AT Leroy Estrada M.D.,[facility] W/O Intractable W/O Status Migrainosus 466.0 Bronchitis Acute Office Visit 07/20/2010 2:20p DO Not Use Log Manager Trevon 466.0 Bronchitis Acute AT Leroy Lewis M.D. Office Visit 07/13/2010 3:40p DO Not Use Log Manager Trevon 466.0 Bronchitis Acute AT [facility] Gamal Lewis Office Visit 07/06/2010 10:40a DO Not Use Log Manager Tony Ulrich 381.81 Eustachian Tube AT Leroy Estrada M.D.,[facility] Dysfunction 627.1 Postmenopausal Bleeding Office Visit 07/21/2009 2:00p DO Not Use Log Manager Dee Andino PA 009.3 Diarrhea Presumed AT [facility] Infectious Origin V04.81 Need For Prophylactic Vaccination & Inoculation/Influenza Office Visit 07/04/2009 DO Not Use Log Manager Tony Ulrich 235.4 Neoplasm Uncertain 11:20a AT Leroy Estrada M.D.,[facility] Retroperitoneum & Peritoneum Office Visit 06/24/2009 DO Not Use Log Manager Dee Andino P 789.07 Pain Abdominal 2:30p AT [facility] A Generalized V72.31 Routine Cottage Supervisor Examination Office Visit 04/29/2009 3:20p DO Not Use Log Manager Tony Ulrich 780.52 Insomnia AT Leroy Estrada M.D.,[facility] Unspecified 300.09 Anxiety States Other 346.11 Migraine W/O Aura W/Intractable W/O Status Migrainosus Office Visit 04/04/2009 3:40p DO Not Use Log Manager Bibi 564.1 Irritable Bowel AT Manliusnikko Sexton M.D. Syndrome Office Visit 01/16/2009 11:40a DO Not Use Log Manager Tony Estrada, 564.1 Irritable Bowel AT Leroy Yeung,[facility] Syndrome 346.10 Migraine Common W/O Intractable W/O Status Migrainosus Office Visit 12/09/2008 11:00a DO Not Use Log Manager AT Tony Ulrich 729.82 Cramp Of Limb Leroy Estrada M.D.,FACP Office Visit 11/18/2008 10:00a DO Not Use Log Manager AT Tony Ulrich 729.82 Cramp Of Limb [facility]oy [facility] M.D.,[facility] 333.94 Restless Leg Syndrome 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 Stenosis, Lumbar Region, 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 Claudication Office Visit 05/07/2008 11:20a DO Not Use Log Manager Tony Ulrich 346.10 Migraine Common AT Leroy Estrada M.D.,FACP W/O Intractable W/O Status Migrainosus 843.9 Sprains & Strains Hip & Thigh Unspec Site 733.99 Bone & Cartilage Disorder Other V04.81 Need For Prophylactic Vaccination & Inoculation/Influenza v04.81 Need For Prophylactic Vaccination & Inoculation/Influenza Office Visit 04/08/2008 11:40a DO Not Use Log Manager Tony Ulrich 846.1 Sprains & Strains AT Leroy Estrada M.D.,FACP Sacroiliac Region Sacroiliac Ligament Office Visit 10/17/2007 9:20a DO Not Use Log Manager Tony Ulrich 564.1 Irritable Bowel AT Leroy Estrada M.D.,FACP Syndrome 558.9 Gastroenteritis & Colitis Noninfectious Other 620.2 Ovarian Cyst Other & Unspec Plan of Treatment Future Appointment(s):02/23/2019 1:45 pm - Eric Niño LCSW at [facility] Internal Medicine - Ccmob02/05/2019 - Gauri Herbert, MDM81.0 Age-related osteoporosis without current pathological fractuNew Medication:Prolia 60 mg/ml - one sc every 6 monthsComments:your bone density has been worsening and you are at high risk for fracture if you fall. I recommend you start medication right away. Given your diagnosis of bronchiectasis and risk of esophagitis with alendronate , I recommend a medication called Prolia which is an injection under the skin administeredevery 6 months.You should get most of your calcium from your diet rather than a tablet, and make sure to integrate weight bearing exercise into your daily routine.J47.9 Bronchiectasis, uncomplicatedComments:follow up with Dr. KapadiaK21.9 Gastro-esophageal reflux disease without esophagitisNew Medication:Ranitidine 150 Maximum Strength 150 mg - one by mouth twice a day
[2019-02-15 13:14] VITALS: BP 126/67
--- NOTE | 2019-02-15 13:21 | UC ---
Skin Complaint HPI - HPI Summary HPI Summary: 78-year-old female who has a small bruise to her right forearm dorsal aspect which occurred approximately 11:00 today. Patient denies any injury. The patient has factor V Leiden. She has no hematuria, no blood in her stools and not coughing up any blood. The bruise has not spread in size since 11:00. - History of Current Complaint Chief Complaint: UCSkin Time Seen by Provider: 02/15/19 13:09 Stated Complaint: SKIN ISSUE Hx Obtained From: Patient, Family/Hat Trimmer ?: No Onset/Duration: Gradual Onset Skin Exposure Onset/Duration: Hours Ago - Patient noticed the bruise at 11:00 today. Timing: Constant Onset Severity: Mild Current Severity: Mild Pain Intensity: 0 Location: Other - Right forearm dorsal aspect. Aggravating Factor(s): Nothing Alleviating Factor(s): Nothing Associated Signs & Symptoms: Positive: Negative Related History: Other: - No recollection of any trauma or insect bite. - Allergy/Home Medications Allergies/Adverse Reactions: Allergies Allergy/AdvReac Type Severity Reaction Status Date / Time azithromycin Allergy Migraines Verified 02/15/19 13:15 codeine Allergy Migraines Verified 02/15/19 13:15 erythromycin base Allergy Migraines Verified 02/15/19 13:15 Home Medications: Home Medications Ranitidine TAB (NF) [Zantac TAB (NF)] 1 tab PO DAILY 02/15/19 [History Confirmed 02/15/19] PMH/Surg Hx/FS Hx/Imm Hx Previously Healthy: Yes Neurological History: Migraine Cancer History: Breast Cancer - Surgical History Surgical History: Yes Surgery Procedure, Year, and Place: partial hysterectomy,. 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 tonsillectomy,. appendectomy - Family History Known Family History: Positive: Hypertension - Social History Alcohol Use: Rare Substance Use Type: None Smoking Status (MU): Never Smoked Tobacco Review of Systems All Other Systems Reviewed And Are Negative: Yes Skin: Positive: Bruising - Bruise to right forearm dorsal aspect since 11:00 today. Is Patient Immunocompromised?: No Physical Exam Triage Information Reviewed: Yes Appearance: Well-Appearing, No Pain Distress, Well-Nourished Vital Signs: Initial Vital Signs Temp 97.8 F 02/15/19 13:13 Pulse 67 02/15/19 13:13 Resp 16 02/15/19 13:13 BP 126/67 02/15/19 13:13 Pulse Ox 99 02/15/19 13:13 Vital Signs Reviewed: Yes Musculoskeletal: Positive: Strength Intact, ROM Intact, No Edema, Other: - Nontender on palpation. Neurological: Positive: Alert, Muscle Tone Normal Psychological Exam: Normal Skin: Positive: Other - Patient has a purplish red bruise to the dorsal aspect of her right forearm measuring approximately 3.0 cm in diameter. It is not a bull's-eye rash. It is macular with an irregular border. It appears to be a simple minor bruise Course/Dx - Course Course Of Treatment: At this point time the bruise is not enlarged since 11:00 when it had its spontaneous appearance. I believe this is possibly from the patient hitting her arm or she is also been lifting some heavy things. She has no other bruises on her body. She is to observe at this time may apply ice intermittently and follow-up with her primary care provider if any worsening symptoms. She and the family are agreeable with this plan of action. - Diagnoses Provider Diagnosis: Ecchymosis of forearm Discharge - Sign-Out/Discharge Documenting (check all that apply): Patient Departure All imaging exams completed and their final reports reviewed: No Studies - Discharge Plan Condition: Good Disposition: HOME Patient Education Materials: Contusion in Adults (ED) Referrals: Gauri Herbert MD [Primary Care Provider] - Additional Instructions: Apply ice to the area intermittently throughout the day today. Follow-up with your primary care provider if you have worsening symptoms. If you have any spreading of the bruising, blood in your urine or stool or coughing up blood go to the emergency room for further treatment. - Billing Disposition and Condition Condition: GOOD Disposition: Home - Attestation Statements Provider Attestation: I was available for consult. This patient was seen by the AMELIA. The patient was not presented to, seen by, or examined by me. -Heron
== END 2019-02-15 13:36 | disposition home or self-care (01) ==
LOC: UCEAST 13:00
DX: R23.3 Spontaneous ecchymoses (principal); D68.51 Activated protein C resistance; Z88.5 Allergy status to narcotic agent; Z85.3 Personal history of malignant neoplasm of breast
CPT/HCPCS: 99211; G0463

== ENCOUNTER 2019-09-05 17:45 | Inpatient (IN) | payer MEDICARE, BC ==
[2019-09-05] MEDS ORDERED: NS 0.9% 1000 ML** 1,000 ML IV ONE (17:46)
--- NOTE | 2019-09-05 18:01 | ED ---
Neurological HPI - HPI Summary HPI Summary: Patient is a 79 y/o F w/ Hx of Leiden factor V, raynauds disease, breast CA in remission who presents to [facility] via EMS for impaired speech. Last known well is 1600 09/05/19. At 1700 09/05/19, patient was speaking with daughter on the phone. At this time, it was noted that she had difficulty forming words and phrases. EMS was called and notes that the patient is sluggish to answer questions but does answer appropriately. Left sided BAHENA is noted as well. EMS BG of 99 reported. Home medications and allergies are reviewed. EMS called fuad saez at 1728 with ETA of 15 minutes. EMS arrived at 1743 with provider at bedside immediately to evaluate. Patient was wheeled to [place] at 1745. - History of Current Complaint Stated Complaint: FUAD SAEZ Time Seen by Provider: 09/05/19 17:46 Hx Obtained From: Patient, EMS Onset/Duration: Started minutes ago, Still Present Timing: Constant Pain Scale Used: 0-10 Numeric Character: Impaired Speech, Other: - BAHENA Associated Signs and Symptoms: Positive: Headache, Impaired Speech - Allergy/Home Medications Allergies/Adverse Reactions: Allergies Allergy/AdvReac Type Severity Reaction Status Date / Time azithromycin Allergy Migraines Verified 02/15/19 13:15 codeine Allergy Migraines Verified 02/15/19 13:15 erythromycin base Allergy Migraines Verified 02/15/19 13:15 Home Medications: Home Medications Ascorbic Acid TAB* [Vitamin C TAB*] 500 mg PO DAILY 09/05/19 [History Confirmed 09/05/19] Calcium Carbonate/Vitamin D3 [Calcium 1000 + D] 1 tab PO DAILY 09/05/19 [ History Confirmed 09/05/19] Cholecalciferol TAB* [Vitamin D TAB*] 1,000 unit PO DAILY 09/05/19 [History Confirmed 09/05/19] Pantoprazole TAB (NF) [Protonix TAB (NF)] 20 mg PO DAILY 09/05/19 [History Confirmed 09/05/19] Turmeric 400 mg PO DAILY 09/05/19 [History Confirmed 09/05/19] Vitamin A Palmitate [Vitamin A] 10,000 unit PO DAILY 09/05/19 [History Confirmed 09/05/19] PMH/Surg Hx/FS Hx/Imm Hx Endocrine/Hematology History: Denies: Hx Diabetes, Hx Thyroid Disease Cardiovascular History: Denies: Hx Hypertension, Hx Pacemaker/ICD Respiratory History: Reports: Other Respiratory Problems/Disorders - sob, cough 6 weeks normal cxr per pt, BRONCHIECTASIS Denies: Hx Asthma, Hx Chronic Obstructive Pulmonary Disease (COPD) GI History: Reports: Other GI Disorders - hx ibs Musculoskeletal History: Reports: Hx Osteoporosis - OSTEOPENIA Denies: Hx Rheumatoid Arthritis, Hx Scoliosis Neurological History: Reports: Hx Headaches Denies: Other Neuro Impairments/Disorders Psychiatric History: Denies: Hx Panic Disorder - Cancer History Cancer Type, Location and Year: Breast Cancer-1985. Migraines Hx Chemotherapy: Yes - 1985 r/t breat ca Hx Radiation Therapy: No - Surgical History Surgery Procedure, Year, and Place: partial hysterectomy,. 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 tonsillectomy,. appendectomy Infectious Disease History: Reports: Hx Hepatitis - REACTION TO ILOSONE Denies: Hx Human Immunodeficiency Virus (HIV) - Family History Known Family History: Positive: Hypertension - Social History Alcohol Use: Rare Substance Use Type: Reports: None Smoking Status (MU): Never Smoked Tobacco Review of Systems Cardiovascular: Other - negative - tachycardia Neurological: Other - positive - impaired speech Positive: Headache All Other Systems Reviewed And Are Negative: Yes Physical Exam - Summary Physical Exam Summary: Constitutional: Well-developed, Well-nourished, Alert. (-) Distressed Skin: Warm, Dry HENT: Normocephalic; Atraumatic Eyes: Conjunctiva normal Neck: Musculoskeletal ROM normal neck. (-) JVD, (-) Stridor, (-) Tracheal deviation Cardio: Rhythm regular, rate normal, Heart sounds normal; Intact distal pulses; Radial pulses are 2+ and symmetric. (-) Murmur Pulmonary/Chest wall: Effort normal. (-) Respiratory distress, (-) Wheezes, (-) Rales Abd: Soft, (-) tenderness, (-) Distension, (-) Guarding, (-) Rebound Musculoskeletal: (-) Edema Lymph: (-) Cervical adenopathy Neuro: Alert, Oriented x3, GCS 15, NIH 2, see scale for breakdown Psych: Mood and affect Normal Triage Information Reviewed: Yes Vital Signs Reviewed: Yes - Ashley Coma Scale Best Eye Response: 4 - Spontaneous Best Motor Response: 6 - Obeys Commands Best Verbal Response: 5 - Oriented Coma Scale Total: 15 Procedures - Sedation Patient Received Moderate/Deep Sedation with Procedure: No Diagnostics - Laboratory Result Diagrams: 09/05/19 18:01 09/05/19 18:01 Lab Statement: Any lab studies that have been ordered have been reviewed, and results considered in the medical decision making process. - Radiology CXR Radiology Interpretation Completed By: ED Physician Summary of Radiographic Findings: Status post left mastectomy, no acute abnormalities noted, pending official report. - CT BRAIN CT CT Interpretation Completed By: Radiologist Summary of CT Findings: IMPRESSION: NO ACUTE INTRACRANIAL PATHOLOGY. THIS REPORT WAS REVIEWED BY ED PHYSICIAN. HEAD/NECK CTA CT Interpretation Completed By: Radiologist Summary of CT Findings: NECK CTA IMPRESSION: 1. No stenosis or occlusion of the extracranial internal carotid arteries. bilaterally. 2. Additional findings described above. HEAD CTA IMPRESSION: 1. No significant arterial stenosis or occlusion on this CTA head. 2. Additional findings described above. THIS REPORT WAS REVIEWED BY ED PHYSICIAN. - EKG 1823 Cardiac Rate: NL - rate of 87 BPM EKG Rhythm: Sinus Rhythm Summary of EKG Findings: EKG showed NSR with rate of 87 BPM, LBBB, no ischemic changes per Sgarbossa criteria. ED physician has reviewed and interpreted this EKG. NIH Scale - NIH Scale Level of Consciousness: Alert/Keenly Responsive Ask Patient the Month and His/Her Age: Both Correct Ask Pt to Open/Close Eyes and Audit Machine Operator/Release Non-Paretic Hand: Both Correctly Best Gaze (Only Horizontal Eye Movement): Normal Visual Field Testing: No Visual Loss Facial Paresis-Pt to Smile & Close Eyes or Grimace Symmetry: Normal/Symmetrical Motor Function - Right Arm: No Drift-Holds 10 Seconds Motor Function - Left Arm: No Drift-Holds 10 Seconds Motor Function - Right Leg: No Drift-Holds 10 Seconds Motor Function - Left Leg: No Drift-Holds 10 Seconds Limb Ataxia-Must be out of Proportion to Weakness Present: Absent Sensory (Use Pinprick to Test Arms/Legs/Trunk/Face): Normal Best Language (Describe Picture, Name Items): Some Loss Dysarthria (Read Several Words): Slurs Some Words Extinction and Inattention: No Abnormality Total Score: 2 Re-Evaluation - Re-Evaluation First Eval Re-Evaluation Time: 18:15 Comment: Discussed risks and benefits of TPA with the patient and family. After discussing patient and family agreeable with administration of TPA. Course/Dx - Course Course Of Treatment: Patient is here with dysarthria and word finding difficulties that started at 1700 tonight. Patient was last normal at 1600. Patient was brought in and reevaluated in the hallway quickly. Patient was having obvious dysarthria. Patient had a stat CT brain and CTA which showed no intracranial hemorrhage or evidence of vessel occlusion. Patient had an NIH stroke scale of 2. Patient was discussed with neurology at [place] and agreed with my assessment of giving TPA. Family and patient were both made aware of the risks and benefits of TPA and wanted the treatment. Patient was given TPA and admitted to the ICU - Diagnoses Provider Diagnoses: CVA (cerebral vascular accident) During the Visit The Following Alert/Code Occurred: Code Miller - EMS called fuad saez at 1728 with ETA of 15 minutes. EMS arrived at 1743 with provider at bedside immediately to evaluate. Patient was wheeled to CT at 1745. 1758 - radiologist communicates negative Brain CT impression - Physician Notifications Discussed Care Of Patient With: Aryan Doss Time Discussed With Above Provider: 18:05 Instructed by Provider To: Other - 1805 - Patient's case was discussed with Dr. Doss, he recommends TPA but advises discussing this with the patient's family. 1903 - Patient's case was discussed with Dr. Lord, Dr. Lord accepts for admission - Critical Care Time Critical Care Time: 30-74 min - 45 minutes CCT Discharge ED - Sign-Out/Discharge Documenting (check all that apply): Patient Departure - admit - Discharge Plan Condition: Fair Disposition: ADMITTED TO [facility] - Billing Disposition and Condition Condition: FAIR Disposition: Admitted to [facility] - Attestation Statements Document Initiated by Orlando: Yes Documenting Scribe: LEIA STREET Provider For Whom Orlando is Documenting (Include Credential): ALBERTO RICE MD Scribe Attestation: I, LEIA STREET, scribed for ALBERTO RICE MD on 09/05/19 at 2037. Scribe Documentation Reviewed: Yes Provider Attestation: The documentation as recorded by the LEIA bedolla accurately reflects the service I personally performed and the decisions made by me, ALBERTO RICE MD Status of Scribe Document: Viewed
--- OUTSIDE RECORDS SUMMARY | 2019-09-05 18:01 | XMS REPORT | Continuity of Care Document ---
:1940 External Reference #:[id number] Author Name Bruna Espinoza MD (transmitted by agent of provider Lydia Maciel) Address [address] [place] [address] Care Team Providers Name Role Phone James Encarnacion MD - Gastroenterology Care Team Information Development Vice President Kimo Smith MD - Obstetrics & Care Team Information Development Vice President Gynecology Matthias Geronimo MD - Care Team Information Development Vice President [phone] Otolaryngology Aneesh Fofana MD - Pulmonary Disease Care Team Information Development Vice President [phone] Gauri Herbert M.D. 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 Social History Type Date Description Comments Sex Unknown Tobacco Use Start: Unknown Never Smoked Cigarettes Tobacco Use Start: Unknown Significant Secondhand Smoke Exposure Smoking Status Reviewed: 07/27/19 Significant Secondhand Smoke Exposure ETOH Use 10/05/2018 [...] Medications SIG Qnty Indications Ordering Date Provider Azithromycin take 2 tablets on 6tabs R05 Bruna 07/27/2019 250mg day 1, then 1 tab MD Aleixs Tablets daily for days 2-5 Pantoprazole Sodium Take 1 tab by mouth 30tabs Bruna 07/03/2019 daily prior to MD Alexis 20mg Tablets DR first meal Prolia one sc every 6 1ml M81.0 Gauri Herbert MD 02/05/2019 60mg/ml Soln months Prefill Syringe Nebusal every 6 hours as 720ml J47.9 Nina Cortez, 12/28/2018 3% Nebulizer needed M.D. Nebulizer every 6 hours as 1units J47.9 Nina Cortez, 12/28/2018 Misc needed M.D. Nebulizer 1 unit nebulization 1units J47.9 Nina Dana, 12/28/2018 Kit/Tubing/Mouthpiec every 6 hours as M.D. e needed Kit Fluticasone use 2 sprays in 16units J06.9 Zsofia Favio, 12/20/2018 Propionate each nostril one VIDEO GAME ANIMATOR 50mcg/Act time a day as Suspension needed J30.9 Levocetirizine pt stopped----1 by 30tabs J30.9 Zsofirickey Stahl, 12/20/2018 Dihydrochloride mouth every day VIDEO GAME ANIMATOR 5mg Tablets Shingrix 0.5 milliliters 2units Tony Ulrich 10/05/2018 50mcg/0.5ML intramuscular now and Gamal Estrada,FACP Suspension Rec 2-3 months later repeat Riboflavin 4 every day 120caps Tony Ulrich 12/29/2016 100mg Capsules Gamal Estrada,FACP Vitamin B-Complex 1 by mouth every day 90tabs Tony Ulrich 09/24/2016 Tablets Gamal Estrada,FACP Calcium Citrate + D3 Tony Ulrich 09/24/2016 Gamal Estrada,FACP [id number] Tablets Potassium/Magnesium 1 daily Tony Ulrich 07/23/2011 Aspartate Gamal Estrada,ALLIEP 50-20mg Capsules Vitamin A 1 daily Tony [...] Unknown 5mg Tablets DR Mason Medications Symbicort 1 puff by 10.200gm R05 Kameron Kapadia, 04/19/2019 - 80-4.5mcg/Act mouth twice a MD 05/19/2019 Aerosol day Ranitidine 150 Maximum one by mouth 60tabs K21.9 Gauri Herbert MD 2018 - Strength twice a day 07/03/2019 150mg Tablets Medications Administered in Office Medication SIG Qnty Indications Ordering Provider Date Prolia Injection, Denosumab, Nurse Visit A 05/08/2019 1MG Injection Celestone 3 mg and 3mg Denisha Swaant-Young, 05/01/2014 Injection M.D. Celestone 3 mg and 3mg Denisha Sawant-Young, 10/10/2013 Injection M.D. Immunizations CPT Code Status Date Vaccine Reaction Lot # [id number] Given 05/08/2018 Influenza Virus Vaccine, [id number] Quadrivalent, Split, Preservative Free 07324 Given 05/02/2017 Influenza Virus Vaccine, pt tolerated well [id number] Quadrivalent, Split, Preservative Free 94243 Given 05/15/2016 Influ Virus Vaccine, noo reaction noted ... [id number] Quadrivalent, Split Virus, [place] [address] Given 04/17/2015 Influenza Virus Vaccine, no reaction , no [id number] Quadrivalent, Split, comments Preservative Free 22056 Given 09/19/2014 Pneumococcal Conjugate [id number] Vaccine 13 Valent For Intramuscular Use 19022 Given 05/03/2014 Influenza Virus Vaccine, Quadrivalent, Split, Preservative Free 97092 Given 05/03/2014 Influenza Virus Vaccine, [id number] Quadrivalent, Split, Preservative Free 07560 Given 05/07/2013 Flu Vaccine Split Virus [id number] Preservative Free For Indiv 3Yr Older Q2038 Given 04/04/2012 Fluzone Vaccine [id number] Q2038 Given 04/09/2011 Fluzone Vaccine [id number] Q2038 Given 04/09/2011 Fluzone Vaccine Q2038 Given 04/09/2011 Fluzone Vaccine 21668 Given 05/08/2010 Influenza Virus 3Yrs & [id number] Over 60304 Given 05/08/2010 Influenza Virus 3Yrs & Over 25963 Given 07/21/2009 Influenza Virus Vaccine, [id number] 5P Pandemic Formulation 02468 Given 05/07/2008 Influenza Virus 3Yrs & Over 87972 Given 05/07/2008 Influenza Virus 3Yrs & 7723 Over 70646 Given 09/02/2006 Zoster (Zostavax) 49865 Given 12/10/2005 Tetanus And Diptheria (Td) For Adult Use Preservative Free 16759 Given 02/09/2005 Pneumonia Vaccine Vital Signs Date Vital Result Comment 07/27/2019 12:59pm Height 65.5 inches 5'5.50" Weight 116.00 lb Heart Rate 71 /min BP Systolic Sitting 144 mmHg BP Diastolic Sitting 83 mmHg Body Temperature 98.4 F O2 % BldC Oximetry 97 % BMI (Body Mass Index) 19.0 kg/m2 04/19/2019 9:39am Height 65.5 inches 5'5.50" Weight 115.00 lb Heart Rate 66 /min BP Systolic Sitting 124 mmHg Lue regular cuff Respiratory Rate 12 /min O2 % BldC Oximetry 97 % BMI (Body Mass Index) 18.8 kg/m2 Results Description No Information Available Procedures Date Code Description Status 05/08/2019 23585 Admin Of Inj Completed 10/25/2018 [id number] Bone Mineral Density Test Completed 10/21/2017 [id number] Mammogram Completed 10/20/2016 [id number] Bone Mineral Density Test Completed 10/20/2016 [id number] Mammogram Completed 04/09/2015 [id number] Colonoscopy Completed 07/05/2013 [id number] Bone Mineral Density Test Completed 12/28/2012 [id number] Mammogram Completed 10/22/2011 [id number] Colonoscopy Completed 09/16/2010 [id number] Mammogram Completed 09/05/2009 [id number] Colonoscopy Completed 07/11/2008 [id number] Mammogram Completed 04/10/2008 [id number] Bone Mineral Density Test Completed Medical Devices Description No Information Available Encounters Type Date Location Provider Dx Diagnosis Office Visit 04/19/2019 9:45a Pulmonology And Sleep Kameron Kapadia MD R05 [facility] J47.9 Bronchiectasis, uncomplicated R91.8 Other nonspecific abnormal finding of lung field Office Visit 02/05/2019 9:40a [facility] Internal Gauri Herbert M81.0 Age-related Medicine - MD osteoporosis w/o Ccmob current pathological fracture J47.9 Bronchiectasis, uncomplicated K21.9 Gastro-esophageal reflux disease without esophagitis Assessments Date Code Description Provider 07/27/2019 R05 Cough Bruna Espinoza MD 07/27/2019 J47.9 Bronchiectasis, uncomplicated Bruna Espinoza MD 05/08/2019 M81.0 Age-related osteoporosis without current Nurse Visit A pathological fracture 04/19/2019 R05 Cough Kameron Kapadia MD 04/19/2019 J47.9 Bronchiectasis, uncomplicated Kameron Kapadia MD 04/19/2019 R91.8 Other nonspecific abnormal finding of lung field Kameron Kapadia MD 02/05/2019 M81.0 Age-related osteoporosis without current Gauri Herbert MD pathological fractu 02/05/2019 J47.9 Bronchiectasis, uncomplicated Gauri Herbert MD 02/05/2019 K21.9 Gastro-esophageal reflux disease without Gauri Herbert, MD esophagitis Plan of Treatment 07/27/2019 - Bruna Espinoza, MDR05 CoughNew Medication:Azithromycin 250 mg - take 2 tablets on day 1, then 1 tab daily for days 2-5Comments:Continue to stay well hydrated with plenty of fluids.Eat as tolerated.Motrin/Tylenol for fever control.Call office for continued fever or worsening symptoms Guaifenasin - for cough suppressantPlease call the office for worsening conditions: fever, BAHENA, muscle pains, etcJ47.9 Bronchiectasis, uncomplicated Functional Status Description No Information Available Mental Status Description No Information Available Referrals Description No Information Available
--- OUTSIDE RECORDS SUMMARY | 2019-09-05 18:01 | XMS REPORT | Continuity of Care Document ---
:1940 External Reference #:[id number] Author Name Bruna Espinoza MD (transmitted by agent of provider Crys Oreilly) Address [address] [place] [address] Care Team Providers Name Role Phone James Encarnacion MD - Gastroenterology Care Team Information [place] Kimo Smith MD - Obstetrics & Care Team Information [place] Gynecology Matthias Geronimo MD - Care Team Information [place] [phone] Otolaryngology Aneesh Fofana MD - Pulmonary Disease Care Team Information [place] [phone] Gauri Herbert M.D. - Family Medicine Care Team Information [place] [phone] Problems Active Problems Provider Date Heterozygous Factor [...] Insomnia Tony Estrada M.D.,FACP Onset: 07/23/2011 Osteoporosis oTny Estrada M.D.,FACP Onset: 12/29/2016 Note: spinal, not hip Social History Type Date Description Comments Sex Unknown Tobacco Use Start: Unknown Never Smoked Cigarettes Tobacco Use Start: Unknown Significant Secondhand Smoke Exposure Smoking Status Reviewed: 08/07/19 Significant Secondhand Smoke Exposure ETOH Use 10/05/2018 [...] Medications SIG Qnty Indications Ordering Date Provider Pantoprazole Sodium Take 1 tab by mouth 30tabs Bruna 07/03/2019 daily prior to MD Alexis 20mg Tablets DR first meal Prolia one sc every 6 1ml M81.0 Gauri Herbert MD 02/05/2019 60mg/ml Soln months Prefill Syringe Nebusal every 6 hours as 720ml J47.9 Ninayannick Cortez, 12/28/2018 3% Nebulizer needed M.D. Nebulizer every 6 hours as 1units J47.9 Nina Dana, 12/28/2018 Misc needed M.D. Nebulizer 1 unit nebulization 1units J47.9 [facility] Dana, 12/28/2018 Kit/Tubing/Mouthpiec every 6 hours as M.D. e needed Kit Fluticasone use 2 sprays in 16units J06.9 Zsofia Favio, 12/20/2018 Propionate each nostril one TIMBER KILLER 50mcg/Act time a day as Suspension needed J30.9 Levocetirizine pt stopped----1 by 30tabs J30.9 Zsofia Favio, 12/20/2018 Dihydrochloride mouth every day TIMBER KILLER 5mg Tablets Shingrix 0.5 milliliters 2units Tony Ulrich 10/05/2018 50mcg/0.5ML intramuscular now and Gamal Estrada,FACP Suspension Rec 2-3 months later repeat Riboflavin 4 every day 120caps Tony Ulrich 12/29/2016 100mg Capsules Gamal Estrada,FACP Vitamin B-Complex 1 by mouth every day 90tabs Tony Ulrich 09/24/2016 Tablets Gamal Estrada,FACP Calcium Citrate + D3 Tony Ulrich 09/24/2016 Gamal Estrada,FACP [id number] Tablets Potassium/Magnesium 1 daily Tony Ulrich 07/23/2011 [...] tabs a day Unknown 5mg Tablets DR History Medications Azithromycin take 2 tablets 6tabs R05 Bruna Espinoza, 07/27/2019 - 250mg on day 1, then 08/01/2019 Tablets 1 tab daily for days 2-5 Symbicort 1 puff by mouth 10.200gm R05 Kameron Kapadia MD 04/19/2019 - 80-4.5mcg/Act twice a day 05/19/2019 Aerosol Ranitidine 150 one by mouth 60tabs K21.9 Gauri Herbert MD 02/05/2019 - Maximum Strength twice a day 07/03/2019 150mg Tablets Medications Administered in Office Medication SIG Qnty Indications Ordering Provider Date Prolia Injection, Denosumab, Nurse Visit A 05/08/2019 1MG Injection Celestone 3 mg and 3mg Denisha Kitty, 05/01/2014 Injection M.D. Celestone 3 mg and 3mg Denisha Tang, 10/10/2013 Injection M.D. Immunizations CPT Code Status Date Vaccine Reaction Lot # [id number] Given 05/08/2018 Influenza Virus Vaccine, [id number] Quadrivalent, Split, Preservative Free 54582 Given 05/02/2017 Influenza Virus Vaccine, pt tolerated well [id number] Quadrivalent, Split, Preservative Free 21572 Given 05/15/2016 Influ Virus Vaccine, noo reaction noted ... [id number] Quadrivalent, Split Virus, [place] [address] Given 04/17/2015 Influenza Virus Vaccine, no reaction , no [id number] Quadrivalent, Split, comments Preservative Free 90782 Given 09/19/2014 Pneumococcal Conjugate [id number] Vaccine 13 Valent For Intramuscular Use 57365 Given 05/03/2014 Influenza Virus Vaccine, Quadrivalent, Split, Preservative Free 52957 Given 05/03/2014 Influenza Virus Vaccine, [id number] Quadrivalent, Split, Preservative Free 47893 Given 05/07/2013 Flu Vaccine Split Virus [id number] Preservative Free For Indiv 3Yr Older Q2038 Given 04/04/2012 Fluzone Vaccine [id number] Q2038 Given 04/09/2011 Fluzone Vaccine [id number] Q2038 Given 04/09/2011 Fluzone Vaccine Q2038 Given 04/09/2011 Fluzone Vaccine 26798 Given 05/08/2010 Influenza Virus 3Yrs & [id number] Over 05904 Given 05/08/2010 Influenza Virus 3Yrs & Over 09235 Given 07/21/2009 Influenza Virus Vaccine, [id number] 5P Pandemic Formulation 74222 Given 05/07/2008 Influenza Virus 3Yrs & Over 54371 Given 05/07/2008 Influenza Virus 3Yrs & 7723 Over 41710 Given 09/02/2006 Zoster (Zostavax) 20204 Given 12/10/2005 Tetanus And Diptheria (Td) For Adult Use Preservative Free 30840 Given 02/09/2005 Pneumonia Vaccine Vital Signs Date Vital Result Comment 08/07/2019 11:32am Height 65.5 inches 5'5.50" Weight 117.00 lb Heart Rate 68 /min BP Systolic Sitting 146 mmHg BP Diastolic Sitting 90 mmHg Pain Level 7 O2 % BldC Oximetry 96 % BMI (Body Mass Index) 19.2 kg/m2 07/27/2019 12:59pm Height 65.5 inches 5'5.50" Weight 116.00 lb Heart Rate 71 /min BP Systolic Sitting 144 mmHg BP Diastolic Sitting 83 mmHg Body Temperature 98.4 F O2 % BldC Oximetry 97 % BMI (Body Mass Index) 19.0 kg/m2 Results Description No Information Available Procedures Date Code Description Status 05/08/2019 85579 Admin Of Inj Completed 10/25/2018 [id number] Bone Mineral Density Test Completed 10/21/2017 [id number] Mammogram Completed 10/20/2016 [id number] Bone Mineral Density Test Completed 10/20/2016 [id number] Mammogram Completed 04/09/2015 [id number] Colonoscopy Completed 07/05/2013 [id number] Bone Mineral Density Test Completed 12/28/2012 [id number] Mammogram Completed 10/22/2011 [id number] Colonoscopy Completed 09/16/2010 84954461 Mammogram Completed 09/05/2009 [id number] Colonoscopy Completed 07/11/2008 [id number] Mammogram Completed 04/10/2008 381777288 Bone Mineral Density Test Completed Medical Devices Description No Information Available Encounters Type Date Location Provider Dx Diagnosis Office Visit 04/19/2019 9:45a Pulmonology And Sleep Kameron Kapadia MD R05 [facility] J47.9 Bronchiectasis, uncomplicated R91.8 Other nonspecific abnormal finding of lung field Office Visit 02/05/2019 9:40a [facility] Internal Gauri Herbert M81.0 Age-related Medicine - MD osteoporosis w/o Ccmob current pathological fracture J47.9 Bronchiectasis, uncomplicated K21.9 Gastro-esophageal reflux disease without esophagitis Assessments Date Code Description Provider 08/07/2019 R05 Cough Bruna Espinoza MD 08/07/2019 R22.1 Localized swelling, mass and lump, neck Bruna Espinoza MD 07/27/2019 R05 Cough Bruna Espinoza MD 07/27/2019 J47.9 Bronchiectasis, uncomplicated Bruna Espinoza MD 05/08/2019 M81.0 Age-related osteoporosis without current Nurse Visit A pathological fracture 04/19/2019 R05 Cough Kameron Kapadia MD 04/19/2019 J47.9 Bronchiectasis, uncomplicated Kameron Kapadia MD 04/19/2019 R91.8 Other nonspecific abnormal finding of lung field Kameron Kapadia MD 02/05/2019 M81.0 Age-related osteoporosis without current Gauri Herbert, MD pathological fractu 02/05/2019 J47.9 Bronchiectasis, uncomplicated Gauri Herbert MD 02/05/2019 K21.9 Gastro-esophageal reflux disease without Gauri Herbert MD esophagitis Plan of Treatment Future Appointment(s):08/17/2019 10:45 am - Eric Niño LCSW at [facility] Internal Medicine - [facility]07/27/2019 - Bruna Espinoza MDR05 CoughNew Medication: Azithromycin 250 mg - take 2 tablets on day 1, then 1 tab daily for days 2- 5Comments:Continue to stay well hydrated with plenty of fluids.Eat as tolerated.Motrin/Tylenol for fever control.Call office for continued fever or worsening symptoms Guaifenasin - for cough suppressantPlease call the office for worsening conditions: fever, BAHENA, muscle pains, etcJ47.9 Bronchiectasis, uncomplicated Functional Status Description No Information Available Mental Status Description No Information Available Referrals Refer to Reason for Referral Status Appt Date Lisa Chamberlain MD Sent [address], [address] [place] [address] [phone]
[2019-09-05] MEDS ORDERED: Alteplase* 100 MG VIAL ONE (18:12)
[2019-09-05] MEDS ORDERED: Iodixanol* (CONTRAST) 320 MG/ML 100 ML SDV IV ONE (18:12)
[2019-09-05 18:15] LABS: ABS Basophils 0.1 10^3/ul (0-0.2); ABS Eosinophils 0.2 10^3/ul (0-0.6); ABS Lymphocytes 1.8 10^3/ul (1.0-4.8); ABS Monocytes 0.6 10^3/ul (0-0.8); ABS Neutrophils 4.6 10^3/ul (1.5-7.7); Eosinophil % 2.5 %; Hematocrit 46 % (35-47); Hemoglobin 15.6 g/dL (12.0-16.0); Lymphocyte % 24.8 %; Mean Corpuscular HGB Conc 34 g/dL (31-36); Mean Corpuscular Hemoglobin 34 pg (27-31); Mean Corpuscular Volume 99 fL (80-97); Mean Platelet Volume 7.8 fL (7.4-10.4); Nucleated Red Blood Cells % 0.1; Platelet Count 252 10^3/uL (150-450); Red Blood Count 4.66 10^6 /uL (3.70-4.87); Red Cell Distribution Width 14 % (10-15); White Blood Count 7.2 10^3/uL (3.5-10.8)
[2019-09-05] MEDS ORDERED: Alteplase* 9 MG in PREMIX* 0 ML IV ONE (18:15)
[2019-09-05] MEDS ORDERED: Alteplase* 100 MG VIAL IV ONE ×3 (18:17)
[2019-09-05 18:26] LABS: Activated Partial Thrombo Time 34.7 seconds (26.0-38.0); INR 0.91 (0.82-1.09)
[2019-09-05 18:47] LABS: ALT 23 U/L (7-52); Albumin 4.6 g/dL (3.2-5.2); Albumin/Globulin Ratio 1.7 (1-3); Alkaline Phosphatase 57 U/L (34-104); BUN/Creatinine Ratio 17.3 (8-20); Blood Urea Nitrogen 13 mg/dL (6-24); CO2 Carbon Dioxide 28 mmol/L (22-32); Calcium 9.8 mg/dL (8.6-10.3); Chloride 104 mmol/L (101-111); Cholesterol 234 mg/dL; EGFR Non-African American 74.4 (>60); Globulin 2.7 g/dL (2-4); Glucose 94 mg/dL (70-100); HDL Cholesterol 65.5 mg/dL; LDL Cholesterol 145 mg/dL; Sodium 138 mmol/L (135-145); Total Protein 7.3 g/dL (6.4-8.9); Triglycerides 119 mg/dL
[2019-09-05 19:09] LABS: Anion Gap 6 mmol/L (2-11)
[2019-09-05] MEDS ORDERED: Acetaminophen TAB* 325 MG PO PRN (19:54)
[2019-09-05] MEDS ORDERED: Ondansetron INJ* 2 MG/ML VIAL IV PRN (19:54)
--- NOTE | 2019-09-05 21:14 | HP ---
CC: Dr. Herbert; Dr. Sherman * HISTORY AND PHYSICAL: DATE OF ADMISSION: 09/05/19 PRIMARY CARE PROVIDER: Dr. Herbert. ATTENDING PHYSICIAN WHILE IN THE HOSPITAL: Dr. Riya Lord * (report dictated by Bhavin Lerma NP). CONSULTING NEUROLOGIST: Dr. Sherman and [facility]. CHIEF COMPLAINT: Difficulty with speech. HISTORY OF PRESENT ILLNESS: Mrs. Colin is an 79-year-old female patient, who carries a history of breast cancer, history of migraines in the past, history of bronchiectasis and hyperlipidemia, not on treatment, who came into the hospital today with complaints of having difficulty with her speech that was noted around 5:15 this evening. The daughter who was visiting was in the other room and heard that the patient was having trouble with her speech on the phone , so she went to see what was going on and right away knew that she could be having a stroke, so called 911. The family called 911 immediately and presented to the hospital. There were no reports no facial drooping, no reports of trouble with weakness in an arm or leg. No worsening balance issues were reported and no loss of vision. Interestingly about 4 o'clock prior to this, she did have an episode of a left- sided headache. She had had migraines in the past, but she also described having a rainbow in her vision with lots of spots that did go away after she took some Advil and she does not have the headache now. A code villalpando was called. She was evaluated by a telestroke, they recommended tPA which was given and we were asked to evaluate for admission. PAST MEDICAL HISTORY: Significant for: 1. Hyperlipidemia. 2. Migraines. 3. Breast cancer. 4. Bronchiectasis. PAST SURGICAL HISTORY: 1. She has had an appendectomy. 2. Mastectomy. 3. Tonsillectomy. HOME MEDICATIONS: Include: 1. Protonix 20 mg daily. 2. Vitamin A 10,000 units p.o. daily. 3. Vitamin C 500 mg p.o. daily. 4. Turmeric 400 mg daily. 5. Calcium with vitamin D3 one tablet p.o. daily. 6. Vitamin D 1000 units p.o. daily. ALLERGIES TO MEDICATIONS: Include AZITHROMYCIN, CODEINE and ERYTHROMYCIN. FAMILY HISTORY: Mother had a history of a stroke. Father had a history of NE. SOCIAL HISTORY: She is . She does not smoke. Rarely drinks alcohol. Surrogate decision makers are her daughters. REVIEW OF SYSTEMS: There is no documented fever. She denied having any significant weight change. There is no double vision. She denies having any ear discharge. No rhinorrhea. No sore throat. No thyroid enlargement. She denied having any chest pain. There is no orthopnea or nocturnal dyspnea. No abdominal pain. There was no nausea, no vomiting, no dysuria, no frequency, again no seizure, no loss of consciousness, no pruritus and no skin ulcerations. Review of 14 systems completed, all others negative. PHYSICAL EXAMINATION GENERAL: At this time, Mrs. Colin is an 79-year-old female patient. She is sitting in the ED stretcher. She does not appear to be in any acute distress. She is well nourished and well developed. VITAL SIGNS: Blood pressure 162/101 with a pulse of 83, respirations were 16, O2 saturation 96%, temperature 98.0. HEENT: Head: Atraumatic and normocephalic. Eyes: EOMs are intact. Sclerae anicteric and not pale. Throat: Oral mucosa appears to be moist. No oropharyngeal erythema. NECK: Supple. LUNGS: Clear to auscultation bilaterally. No wheezes, rales, or rhonchi. HEART: Sounds S1, S2. Regular rate and rhythm. No murmurs, rubs, or gallops. ABDOMEN: Soft, flat, nontender. Bowel sounds are present. EXTREMITIES: Pulses were 2+ throughout. No peripheral edema was noted. NEUROLOGIC: She is awake. She is alert. She is oriented x3. Cranial nerves II through XII are intact. Visual kim were full to confrontation. EOMs were intact. Pupils are equal and reactive to light. Facial sensation was intact to all tracts. She had the palate elevate symmetrically and again no facial drooping. Smile was symmetric and upper facial was symmetric as well. Her speech was clear. She did have some subtle dysarthria when repeating words such as huckleberry and players assistant, but she did have sometimes expressive aphasia, difficulty finding a word. In terms of extremities, sensation was intact, no neglect. She had 5/5 strength in the upper and lower extremities distally and proximally. Reflexes were symmetric. [id number] was intact. No drift was noted. Again, no other focal deficits seen. SKIN: Grossly intact. DIAGNOSTIC STUDIES/LAB DATA: WBC 7.2, RBC 4.66, hemoglobin 15.6, hematocrit of 46, platelet count 252. INR 0.91, PTT 34.7. Sodium 138, potassium pending, chloride 104, bicarb 28, BUN 13, creatinine 0.75, glucose 94, lactate 0.5, calcium 9.8. Total bili 0.6, AST pending, ALT 23, alk phos 57. Troponin 0, albumin 4.6, LDL 145. She had imaging in the ED. CT of the brain showed no acute pathology. CTA of the head showed no stenosis or occlusion of the extracranial internal carotid arteries bilaterally. Additional findings described above. She had no significant arterial stenosis or occlusion on the CT of the head, additional findings described as above. She had an EKG obtained toady as well, which interestingly does show a normal sinus rhythm with a left bundle branch block, rate of 87. Previous EKG from 8 years ago showed normal sinus rhythm with no left bundle branch block. Chest x-ray was reviewed, I do not appreciate any acute infiltrates or effusions noted. Old medical records were reviewed. ASSESSMENT AND PLAN: Mrs. Colin is an 79-year-old female patient coming into the ED today with complaints of difficulty with speech. On evaluation, there was concern for cerebrovascular accident. She will be admitted under inpatient status for: 1. Cerebrovascular accident. At this point, she is status post tPA. She will be n.p.o., on bed rest with frequent neuro checks. I have ordered a CT scan in 24 hour von which will be at 1800 tomorrow. We will get a CT immediately should she have any deterioration neurologically. She will need an MRI. I did not order that as of yet. She will need an echo with a bubble study. I would like the MRI ordered after the CT. I have also ordered some speech therapy at this point, but that could be started tomorrow. She will need to be on a statin , but I will start that tomorrow as there is a slight increased risk of bleeding associated with these medications. In addition to this, she will need to be on aspirin and Plavix most likely for 21 days and then aspirin alone as she was not on this previously. I have consulted our neurologist to see the patient tomorrow. We will keep an eye on her throughout the night. I have also checked A1c as well. We will place her on telemetry to look for atrial fibrillation and going to continue to follow. 2. Hyperlipidemia. I would start statin therapy, high dose Lipitor. 3. Migraine. At this point, they are controlled. She did have one episode of headache prior to this. We will continue to follow this and again she may need further treatment outpatient. 4. Breast cancer. Follow with the PCP. 5. History of bronchiectasis, not active at this point. 6. DVT prophylaxis: She will be placed on SCDs. 7. Code status: Full code. 8. Fluids, electrolytes and nutrition. She is n.p.o. for the first 24 hours and then we will certainly put on heart healthy diet. TIME SPENT: Time spent on the admission was 60 minutes, greater than half the time spent [id number] with the patient obtaining my history and physical, other half time spent going over the plan of care with the patient and implementing plan of care. I did discuss the plan of care with my attending, Dr. Lord; she is in agreement. BHAVIN LERMA, SAIMA [id number]/[facility] #: [id number] KIMMIE
--- NOTE | 2019-09-05 22:56 | PN ---
Hospitalist Progress Note Date of Service: 09/05/19 Called at 1050 for patient complaints of BAHENA. Stat Ct brain ordered. Patient neuro status stable. No changes from my previous exam. Will await CT brain. States that the headache feels similar to her headache from earlier today. Updated attending on change in patient condition.
[2019-09-06 04:53] LABS: ABS Basophils 0.1 10^3/ul (0-0.2); ABS Eosinophils 0.2 10^3/ul (0-0.6); ABS Lymphocytes 1.1 10^3/ul (1.0-4.8); ABS Monocytes 0.5 10^3/ul (0-0.8); ABS Neutrophils 5.1 10^3/ul (1.5-7.7); Eosinophil % 2.9 %; Hematocrit 43 % (35-47); Hemoglobin 14.8 g/dL (12.0-16.0); Lymphocyte % 16.1 %; Mean Corpuscular HGB Conc 34 g/dL (31-36); Mean Corpuscular Hemoglobin 34 pg (27-31); Mean Corpuscular Volume 98 fL (80-97); Mean Platelet Volume 7.8 fL (7.4-10.4); Nucleated Red Blood Cells % 0.1; Platelet Count 226 10^3/uL (150-450); Red Cell Distribution Width 13 % (10-15)
[2019-09-06 05:09] LABS: BUN/Creatinine Ratio 18.8 (8-20); Calcium 8.9 mg/dL (8.6-10.3); EGFR Non-African American 89.3 (>60)
--- NOTE | 2019-09-06 11:07 | ECHO ---
*[facility]* [place] [address] Fax #: [phone] Transthoracic Echocardiogram Patient: Elham Colin : 1940 Study Date: 09/06/2019 Age: 79 Gender: F HR: 63 bpm Height: 66 in /167.6 cm BSA: 1.6 m^2 Weight: 118.8 lb /54 kg BMI: 19.2 kg/m^2 *Muffler Installer: * Yaquelin Rudd [facility] *Referring Physician: * Bhavin LermaReading Physician: * Zbigniew Cordova MD Indications: CVA. History: Risk factors: Dyslipidemia. Hypercoagulable state due to the factor V Leiden mutation. Conclusions Summary: - Left ventricle: Systolic function is normal. The estimated ejection fraction is 60-65%. There is interventricular dyssynchrony. Doppler parameters are consistent with abnormal left ventricular relaxation (grade 1 diastolic dysfunction). - Atrial septum: A PFO is not demonstrated by color Doppler or agitated saline contrast. - Aortic valve: Mild focal calcification involving the noncoronary cusp. Valve mobility is restricted without significant stenosis. - Tricuspid valve: There is mild regurgitation. - Aorta: There is plaque visualized in the Descending Aorta. Study data: Transthoracic echocardiogram. Procedure: Transthoracic echocardiography was performed. Image quality was good. A bubble study was performed. Images 1 and 2. Complete 2D, spectral Doppler, and color flow Doppler. Location: ICU Patient status: Inpatient. Patient room number: 2. No prior study is available for comparison. Rhythm: Normal sinus rhythm. Findings Left ventricle: The cavity size is mildly reduced. Wall thickness is normal. Systolic function is normal. The estimated ejection fraction is 60-65%. Wall motion is normal; there are no regional wall motion abnormalities. There is interventricular dyssynchrony. Doppler parameters are consistent with abnormal left ventricular relaxation (grade 1 diastolic dysfunction). Right ventricle: The cavity size is normal. Systolic function is normal. Ventricular septum: The interventricular septum appears dyssynchronous. The outflow septum has a sigmoid appearance. Left atrium: The atrium is normal in size. Right atrium: The atrium is normal in size. Atrial septum: A PFO is not demonstrated by color Doppler or agitated saline contrast. Negative bubble study. Mitral valve: The leaflets are mildly thickened. There is no evidence of stenosis. There is no significant regurgitation. Aortic valve: The valve is trileaflet. Mild focal calcification involving the noncoronary cusp. Valve mobility is restricted without significant stenosis. There is no evidence of stenosis. There is no significant regurgitation. Tricuspid valve: The leaflets are normal thickness. There is no evidence of stenosis. There is mild regurgitation. Pulmonic valve: Not well visualized. There is no significant regurgitation. Aorta: There is plaque visualized in the Descending Aorta. The aortic root appears normal. The aortic arch appears normal. Pericardium: There is no significant pericardial effusion. Pulmonary arteries: Systolic pressure is within the normal range. Systemic veins: Inferior vena cava: The vessel is normal in size. There is (>= 50%) respiratory change in the IVC dimension. Measurements Left ventricle Value Ref Aortic valve continued Value Ref GRAEME, LAX (L) 2.9 cm 3.8 - 5.2 Peak v, S 1.14 m/sec ----- ESD, LAX (L) 2.1 cm 2.2 - 3.5 VTI, S 22.2 cm ----- FS, LAX 27 % 27 - 45 Mean grad, S 3.0 mm Hg ----- PW, ED, LAX 0.8 cm 0.6 - 0.9 Peak grad, S 5.0 mm Hg ----- E', lat fady, TDI (L) 7.2 cm/sec >=10.0 LVOT/AV, VTI ratio 0.9 ----- E/e', lat fady, 10 TDI Mitral valve Value Ref E', med fady, TDI (L) 6.7 cm/sec >=7.0 Peak E 0.72 m/sec ----- E/e', med fady, 11 Peak A 0.86 m/sec --- -- TDI Decel time 201 ms ----- E', avg, TDI 7.0 cm/sec Peak grad, D 2.1 mm Hg --- -- E/e', avg, TDI 10 <=14 Peak E/A ratio 0.8 ----- LVOT Value Ref Pulmonic valve Value Ref Peak luz, S 0.9 m/sec Peak v, S 0.76 m/sec ----- VTI, S 20.0 cm Peak grad, S 2.0 mm Hg ----- Peak grad, S 3 mm Hg Mean grad, S 2 mm Hg Tricuspid valve Value Ref TR peak v 2.3 m/sec <=2.8 Ventricular septum Value Ref Peak RV-RA grad, S 21 mm Hg ----- IVS, ED 0.9 cm 0.6 - 0.9 Aortic root Value Ref Right ventricle Value Ref Root diam 2.9 cm <3.8 GRAEME, LAX 2.3 cm Root max diam, ED 2.9 cm <3.8 GRAEME minor ax, A4C 2.4 cm 1.9 - 3.5 mid Ascending aorta Value Ref Pressure, S 24 mm Hg AAo AP diam, S 2.7 cm ----- AAo AP diam/bsa, S 1.7 cm/m^2 ----- Left atrium Value Ref AP dim, ES (L) 2.40 cm 2.70 - Aortic arch Value Ref 3.80 Arch diam 3.0 cm ----- ML dim, A4C 2.9 cm SI dim, A4C 4.4 cm Pulmonary artery Value Ref Vol/bsa, ES, A/L (L) 14 ml/m^2 16 - 34 Pressure, S 22.0 mm Hg ----- Right atrium Value Ref Inferior vena cava Value Ref SI dim, ES 4.4 cm 3.4 - 5.3 Diam 1.5 cm ----- ML dim, ES, A4C 3.5 cm 2.6 - 4.4 Estimated RAP 3 mm Hg Aortic valve Value Ref Fady diam, ED 2.1 cm Legend: (L) and (H) von values outside specified reference range. Prepared and electronically signed by Zbigniew Cordova MD 09/06/2019 11:06
--- NOTE | 2019-09-06 13:45 | PN ---
Date of Service: 09/06/19 Critical Care Services: Patient seen and examined. Had ECHO this morning. Had headache overnight which prompted repeat CT scan which was negative for bleeding. Headache is resolved now. States symptoms of dysarthria have also resolved completely and she feels "100%" like herself again. Denies focal weakness, paresthesia, pain, SOB or fever. Vital Signs: Temp Pulse Resp BP SpO2 FiO2 97 F 91 20 137/103 96 09/06/19 11:59 09/06/19 11:00 09/06/19 11:00 09/06/19 11:00 09/06/19 11:00 Physical Exam: General: Alert, NAD HEENT: Normocephalic, atraumatic, non-icteric sclera, moist oral mucosa Neck: soft, supple, no JVD CV: Regular rate and rhythm, no murmurs or rubs Pulm/Chest: Good bilateral air entry, slight expiratory pleural rub on the left , no wheeze, no rales or rhonchi Abdomen/GI: soft, nontender, nondistended, +BS noted MSK/Skin: warm, dry, intact, +2 pulses+, no edema or cyanosis Neuro: A&Ox3, no gross focal deficits Psych: Appropriate affect Fluid Balance (Past 24 Hours): I= O= Net Intake & Output 09/04/19 09/05/19 09/06/19 09/07/19 06:59 06:59 06:59 06:59 Intake Total 104.2 Balance 104.2 Weight 108 lb 0.424 oz Intake: IV Fluids 44.2 Oral 60 Other: Estimated Void Large # Voids 3 Labs: Laboratory Results - last 24 hr 09/05/19 09/05/19 09/05/19 18:01 18:01 18:01 WBC 7.2 RBC 4.66 Hgb 15.6 Hct 46 MCV 99 H MCH 34 H MCHC 34 RDW 14 Plt Count 252 MPV 7.8 Neut % (Auto) 63.7 Lymph % (Auto) 24.8 [place] % (Auto) 7.9 Eos % (Auto) 2.5 Baso % (Auto) 1.1 Absolute Neuts (auto) 4.6 Absolute Lymphs (auto) 1.8 Absolute Monos (auto) 0.6 Absolute Eos (auto) 0.2 Absolute Basos (auto) 0.1 Absolute Nucleated RBC 0.0 Nucleated RBC % 0.1 INR (Anticoag Therapy) 0.91 APTT 34.7 Sodium 138 Potassium TNP Chloride 104 Carbon Dioxide 28 Anion Gap 6 BUN 13 Creatinine 0.75 Est GFR ( Amer) 90.0 Est GFR (Non-Af Amer) 74.4 BUN/Creatinine Ratio 17.3 Glucose 94 POC Glucose (mg/dL) Hemoglobin A1c Lactic Acid Calcium 9.8 Total Bilirubin 0.60 AST TNP ALT 23 Alkaline Phosphatase 57 Troponin I 0.00 Total Protein 7.3 Albumin 4.6 Globulin 2.7 Albumin/Globulin Ratio 1.7 Triglycerides 119 Cholesterol 234 LDL Cholesterol 145 HDL Cholesterol 65.5 09/05/19 09/05/19 09/06/19 18:01 18:28 04:42 WBC 7.0 RBC 4.40 Hgb 14.8 Hct 43 MCV 98 H MCH 34 H MCHC 34 RDW 13 Plt Count 226 MPV 7.8 Neut % (Auto) 72.9 Lymph % (Auto) 16.1 [place] % (Auto) 7.4 Eos % (Auto) 2.9 Baso % (Auto) 0.7 Absolute Neuts (auto) 5.1 Absolute Lymphs (auto) 1.1 Absolute Monos (auto) 0.5 Absolute Eos (auto) 0.2 Absolute Basos (auto) 0.1 Absolute Nucleated RBC 0.0 Nucleated RBC % 0.1 INR (Anticoag Therapy) APTT Sodium Potassium Chloride Carbon Dioxide Anion Gap BUN Creatinine Est GFR ( Amer) Est GFR (Non-Af Amer) BUN/Creatinine Ratio Glucose POC Glucose (mg/dL) 77 Hemoglobin A1c Lactic Acid 0.5 Calcium Total Bilirubin AST ALT Alkaline Phosphatase Troponin I Total Protein Albumin Globulin Albumin/Globulin Ratio Triglycerides Cholesterol LDL Cholesterol HDL Cholesterol 09/06/19 09/06/19 04:42 04:42 WBC RBC Hgb Hct MCV MCH MCHC RDW Plt Count MPV Neut % (Auto) Lymph % (Auto) [place] % (Auto) Eos % (Auto) Baso % (Auto) Absolute Neuts (auto) Absolute Lymphs (auto) Absolute Monos (auto) Absolute Eos (auto) Absolute Basos (auto) Absolute Nucleated RBC Nucleated RBC % INR (Anticoag Therapy) APTT Sodium 139 Potassium 4.0 Chloride 108 Carbon Dioxide 25 Anion Gap 6 BUN 12 Creatinine 0.64 Est GFR ( Amer) 108.0 Est GFR (Non-Af Amer) 89.3 BUN/Creatinine Ratio 18.8 Glucose 89 POC Glucose (mg/dL) Hemoglobin A1c 5.6 Lactic Acid Calcium 8.9 Total Bilirubin AST ALT Alkaline Phosphatase Troponin I Total Protein Albumin Globulin Albumin/Globulin Ratio Triglycerides Cholesterol LDL Cholesterol HDL Cholesterol Studies: Patient Name: JULES YIP Medical Record#: [id number] Ordering Physician: Abhishek Rice MD Acct.#: [id number] : 1940 Age: 79 Sex: F Location: EMERGENCY DEPARTMENT Exam Date: 09/05/191745 ADM Status: REG ER Order Information: CT BRAIN WO Accession Number: [id number] CPT: 87602 HISTORY: Code Collado COMPARISONS: 2006 TECHNIQUE: Multiple contiguous axial CT scans were obtained of the head without intravenous contrast. FINDINGS: HEMORRHAGE/INFARCT: There is no hemorrhage or acute infarct. MASSES/SHIFT: There is no mass or shift. EXTRA-AXIAL SPACES: There are no extra-axial fluid collections. SULCI AND VENTRICLES: The sulci and ventricles are normal in size and position for the patient's stated age. CEREBRUM: There is mild hypoattenuation of the periventricular and subcortical white matter. BRAINSTEM: There are no focal parenchymal abnormalities. CEREBELLUM: There are no focal parenchymal abnormalities. VESSELS: The vessels are grossly normal. PARANASAL SINUSES: The paranasal sinuses are clear. ORBITS: The orbits are unremarkable. BONES AND SOFT TISSUE: No bone or soft tissue abnormalities are noted. OTHER: None IMPRESSION: NO ACUTE INTRACRANIAL PATHOLOGY. PRELIMINARY FINDINGS WERE DISCUSSED WITH DR. RICE IN THE EMERGENCY DEPARTMENT AT APPROXIMATELY 5:58 PM ON SEPTEMBER 05, 2019.. Patient Name: JULES YIP Medical Record#: [id number] Ordering Physician: Abhishek Rice MD Acct.#: [id number] : 1940 Age: 79 Sex: F Location: EMERGENCY DEPARTMENT Exam Date: 09/05/191745 ADM Status: REG ER Order Information: CTA HEAD/NECK Accession Number: [id number] CPT: 13975 ADDENDUM Addendum created by Mayo Winchester MD on 09/05/2019 6:58:23 PM EST Findings are discussed with Abhishek Rice , 09/05/2019 6:58 PM EST. The findings were acknowledged and understood. Initial report created on 09/05/2019 6:56:01 PM EST PROCEDURE INFORMATION: Exam: CT Angiography Head With Contrast Exam date and time: 09/05/2019 6:04 PM Age: 79 years old Clinical indication: Syncope and collapse; Additional info: Eval for lvo TECHNIQUE: Imaging protocol: Computed tomography angiography of the head with intravenous contrast. 3D rendering: MIP and/or 3D reconstructed images were created by the technologist. Radiation optimization: All CT scans at this facility use at least one of these dose optimization techniques: automated exposure control; mA and/or kV adjustment per patient size (includes targeted exams where dose is matched to clinical indication); or iterative reconstruction. Contrast material: VISIPAQUE; Contrast volume: 80 ml; Contrast route: LAC; COMPARISON: SFT TIS US SOFT TISSUE HEAD OR NECK 01/20/2018 1:32 PM FINDINGS: Right internal carotid artery: Intracranial segment is patent with no significant stenosis. No aneurysm. Right anterior cerebral artery: No occlusion or significant stenosis. No aneurysm. Right middle cerebral artery: No occlusion or significant stenosis. No aneurysm. Right posterior cerebral artery: No occlusion or significant stenosis. No aneurysm. Right vertebral artery: No occlusion or significant stenosis. No aneurysm. Left internal carotid artery: Intracranial segment is patent with no significant stenosis. No aneurysm. 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 No occlusion. No aneurysm. Left middle cerebral artery: No occlusion or significant stenosis. No aneurysm. Left posterior cerebral artery: Persistence of the origin of the left posterior cerebral artery. 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 No significant stenosis or occlusion of the remaining left GRILL COOK. Left vertebral artery: No occlusion or significant stenosis. No aneurysm. [facility] Patient Name:JULES YIP MR:[id number] : 1940 Basilar artery: No occlusion or significant stenosis. No aneurysm. Other vasculature: Evaluation of the dural venous sinuses is limited by suboptimal venous enhancement. IMPRESSION: 1. No significant arterial stenosis or occlusion on this CTA head. 2. Additional findings described above. PROCEDURE INFORMATION: Exam: CT Angiography Neck With Contrast Exam date and time: 09/05/2019 6:04 PM Age: 79 years old Clinical indication: Syncope and collapse; Additional info: Eval for lvo TECHNIQUE: Imaging protocol: Computed tomography angiography of the neck with intravenous contrast. 3D rendering: MIP and/or 3D reconstructed images were created by the technologist. Radiation optimization: All CT scans at this facility use at least one of these dose optimization techniques: automated exposure control; mA and/or kV adjustment per patient size (includes targeted exams where dose is matched to clinical indication); or iterative reconstruction. Contrast material: VISIPAQUE; Contrast volume: 80 ml; Contrast route: LAC; COMPARISON: SFT TIS US SOFT TISSUE HEAD OR NECK 01/20/2018 1:32 PM FINDINGS: VASCULATURE: Right common carotid artery: Artifact limits evaluation of the proximal right common carotid artery. No significant stenosis or occlusion of the remaining right common carotid artery. Right internal carotid artery: Extracranial segment is patent with no stenosis. No dissection or occlusion. Right external carotid artery: No occlusion or significant stenosis. Right vertebral artery: No significant stenosis. No dissection or occlusion. Left common carotid artery: Artifact limits evaluation of the proximal left common carotid artery. No significant stenosis or occlusion of the remaining left common carotid artery. Left internal carotid artery: Extracranial segment is patent with no stenosis. No dissection or occlusion. Left external carotid artery: No occlusion or significant stenosis. Left vertebral artery: No significant stenosis. No dissection or occlusion. Subclavian arteries: Venous enhancement and artifact limit evaluation of the right subclavian artery. Artifact limits evaluation of the proximal left subclavian artery. The remaining left subclavian artery is patent. NECK: Hypopharynx: There is near effacement of the left pyriform sinus. Bones/joints: Vertebrae: The cervical lordosis is mildly reversed. Discs/spinal canal/neural foramina: Spondylosis is visualized at multiple cervical levels. Soft tissues: No significant soft tissue swelling. Surgical clips are identified within the left axilla. Lungs: Biapical lung consolidations identified, suggestive of parenchymal scarring. IMPRESSION: 1. No stenosis or occlusion of the extracranial internal carotid arteries bilaterally. 2. Additional findings described above. [facility] Patient Name:JULES YIP MR:[id number] : 1940 COMMENT: Reference per NASCET criteria for degree of stenosis: Mild: less than 50% stenosis. Moderate: 50-69% stenosis. Severe: 70-94% stenosis. Near occlusion: 95-99% stenosis. Dictated and Authenticated by: Mayo Winchester MD 09/05/2019 6:58 PM Eastern Time ([place] and [place]) To contact [facility] with a general question: Operations Center - [phone] For direct physician to physician contact: Physician Hotline - [phone] [facility] ([facility] Facility ID #[id number]) <Electronically signed by Mayo Winchester MD in OV>09/05/191857 Dictated by: Mayo Winchester MD Dictated Date/Time:09/05/191803 Transcribed Date/Time: 09/05/191803 Copy to: Abhishek Rice MD; Gauri Herbert MD PROCEDURE INFORMATION: Exam: CT Angiography Head With Contrast Exam date and time: 09/05/2019 6:04 PM Age: 79 years old Clinical indication: Syncope and collapse; Additional info: Eval for lvo TECHNIQUE: Imaging protocol: Computed tomography angiography of the head with intravenous contrast. 3D rendering: MIP and/or 3D reconstructed images were created by the technologist. Radiation optimization: All CT scans at this facility use at least one of these dose optimization techniques: automated exposure control; mA and/or kV adjustment per patient size (includes targeted exams where dose is matched to clinical indication); or iterative reconstruction. Contrast material: VISIPAQUE; Contrast volume: 80 ml; Contrast route: LAC; COMPARISON: SFT TIS US SOFT TISSUE HEAD OR NECK 01/20/2018 1:32 PM FINDINGS: Right internal carotid artery: Intracranial segment is patent with no significant stenosis. No aneurysm. Right anterior cerebral artery: No occlusion or significant stenosis. No aneurysm. Right middle cerebral artery: No occlusion or significant stenosis. No aneurysm. Right posterior cerebral artery: No occlusion or significant stenosis. No aneurysm. Right vertebral artery: No occlusion or significant stenosis. No aneurysm. Left internal carotid artery: Intracranial segment is patent with no significant stenosis. No aneurysm. 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 No occlusion. No aneurysm. Left middle cerebral artery: No occlusion or significant stenosis. No aneurysm. Left posterior cerebral artery: Persistence of the origin of the left posterior cerebral artery. 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 No significant stenosis or occlusion of the remaining left GRILL COOK. Left vertebral artery: No occlusion or significant stenosis. No aneurysm. Basilar artery: No occlusion or significant stenosis. No aneurysm. [facility] Patient Name:JULES YIP MR:[id number] : 1940 Other vasculature: Evaluation of the dural venous sinuses is limited by suboptimal venous enhancement. IMPRESSION: 1. No significant arterial stenosis or occlusion on this CTA head. 2. Additional findings described above. PROCEDURE INFORMATION: Exam: CT Angiography Neck With Contrast Exam date and time: 09/05/2019 6:04 PM Age: 79 years old Clinical indication: Syncope and collapse; Additional info: Eval for lvo TECHNIQUE: Imaging protocol: Computed tomography angiography of the neck with intravenous contrast. 3D rendering: MIP and/or 3D reconstructed images were created by the technologist. Radiation optimization: All CT scans at this facility use at least one of these dose optimization techniques: automated exposure control; mA and/or kV adjustment per patient size (includes targeted exams where dose is matched to clinical indication); or iterative reconstruction. Contrast material: VISIPAQUE; Contrast volume: 80 ml; Contrast route: LAC; COMPARISON: SFT TIS US SOFT TISSUE HEAD OR NECK 01/20/2018 1:32 PM FINDINGS: VASCULATURE: Right common carotid artery: Artifact limits evaluation of the proximal right common carotid artery. No significant stenosis or occlusion of the remaining right common carotid artery. Right internal carotid artery: Extracranial segment is patent with no stenosis. No dissection or occlusion. Right external carotid artery: No occlusion or significant stenosis. Right vertebral artery: No significant stenosis. No dissection or occlusion. Left common carotid artery: Artifact limits evaluation of the proximal left common carotid artery. No significant stenosis or occlusion of the remaining left common carotid artery. Left internal carotid artery: Extracranial segment is patent with no stenosis. No dissection or occlusion. Left external carotid artery: No occlusion or significant stenosis. Left vertebral artery: No significant stenosis. No dissection or occlusion. Subclavian arteries: Venous enhancement and artifact limit evaluation of the right subclavian artery. Artifact limits evaluation of the proximal left subclavian artery. The remaining left subclavian artery is patent. NECK: Hypopharynx: There is near effacement of the left pyriform sinus. Bones/joints: Vertebrae: The cervical lordosis is mildly reversed. Discs/spinal canal/neural foramina: Spondylosis is visualized at multiple cervical levels. Soft tissues: No significant soft tissue swelling. Surgical clips are identified within the left axilla. Lungs: Biapical lung consolidations identified, suggestive of parenchymal scarring. IMPRESSION: 1. No stenosis or occlusion of the extracranial internal carotid arteries bilaterally. 2. Additional findings described above. Nutrition: Regular unrestricted diet Impression: This is an 79 year old female that presented to the ED with complaints of garbled speech and word searching, Code Collado called in ED, she is now s/p tPA administration for CVA. Diagnoses: 1. CVA 2. HLP 3. Hx of Breast Cancer 4. Hx of Bronchiectasis Plan: Neuro - Dysarthria and word searching now resolved, no s/s bleeding or hemorrhage - No acute infarct on intial CT, no LVO on CTA - Pending post-tPA CT and MRI - ECHO with no PFO - Plan for DAPT and high dose statin therapy CV - No active issues, RSR on tele, BP acceptable range Resp - Bronchiectasis under good control ID - No active issues GI - Passed swallow eval, regular diet Renal- - Renal function WNL - Follow I&O Heme - Stable, no active issues Endo - No active issues Musculsk - OOB to chair - PT/OT consults DVT prophylaxis: SCDs post tPA Disposition: Patient requires Critical Care/ICU for post tPA monitoring Patient clinical status: Stable Code Status: Fair Total Critical Care time is 40 minutes
--- NOTE | 2019-09-06 18:35 | CONS ---
NEUROLOGY CONSULTATION NOTE: DATE OF CONSULT: 09/06/19 CONSULTING PROVIDER: Bhavin Lerma NP REASON FOR CONSULT: Aphasia. CHIEF COMPLAINT: Word finding difficulty. HISTORY OF PRESENT ILLNESS: Mrs. 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 The patient was last known well time at 1600 on 09/05/19. At 1700 on 09/05/19, the patient was speaking with her friend , who noticed that she was having word finding difficulty. The patient did not notice her deficit. She was having trouble forming sentences and phrases. She was having trouble naming objects in the room. The patient's friend then immediately called her daughter, Helen, who called the patient and noticed word finding difficulty. The EMS was contacted. The patient presented to the ED where a code villalpando was activated at 1728. The patient presented to the ED at 1743. The patient was evaluated by the [facility] via telestroke. She had aphasia that persisted. She was unable to read words or sentences of the presented card. NIH stroke scale at that time was presumably elevated, but unclear exactly what it was given that we do not have the report. CT head without contrast was obtained that showed no evidence of intracranial hemorrhage. IV alteplase was administered at 1846. The patient received a total of 49.1 mg of IV tPA. CTA head and neck were obtained and showed no evidence of large vessel occlusion. The patient was admitted to the ICU for close monitoring. Few hours later, the patient developed a left-sided headache. She does have history of migraine headaches, but has not had a migraine headache in a while. The patient was rushed to the CT to rule out hemorrhage which the CT did not show any evidence of intracranial hemorrhage. The patient was observed in the ICU for further post tPA monitoring. The patient scheduled to have an MRI within the next hour. Current NIH stroke scale is 0. PAST MEDICAL HISTORY: Dyslipidemia; migraine headaches; breast cancer, in remission, she had left mastectomy in 1985; bronchiectasis; factor V Leiden mutation. PAST SURGICAL HISTORY: Appendectomy, mastectomy, tonsillectomy. HOME MEDICATIONS: 1. Pantoprazole 20 mg daily. 2. Vitamin A. 3. Ascorbic acid. 4. Turmeric. 5. Calcium. 6. Vitamin D. ALLERGIES: AZITHROMYCIN, CODEINE, ERYTHROMYCIN BASE. FAMILY HISTORY: Five family members of strokes and heart attacks. SOCIAL HISTORY: The patient is a musician. She is . She denies any tobacco abuse. She denies any alcohol abuse. REVIEW OF SYSTEMS: A 14-point review of systems was obtained and otherwise negative except for what was mentioned in the HPI. PHYSICAL EXAM: Vitals: Temperature of 97.5, pulse of 86, respiratory rate of 18, oxygen saturation of 94%, blood pressure of 127/95. General: Well- nourished, well- developed female, in no acute distress. Head: Atraumatic, normocephalic without any obvious abnormality. Neck is supple and symmetrical with no carotid bruits. Eyes: Conjunctivae/corneas are clear. Chest: Clear to auscultation bilaterally with no wheezing or rhonchi. Cardiovascular: Regular rate and rhythm with normal S1, S2. No murmurs. Extremities: No cyanosis or edema. Skin: No skin lesions or lacerations. Psych: Affect is broad, normal mood. Neurological Examination: Mental Status: Awake, alert, and oriented to person, place, time, and general circumstances. Naming, repetition, comprehension and fluency were assessed and found to be normal. Cranial Nerves: Pupils are reactive bilaterally. Extraocular muscles are intact. Normal sensation in the face bilaterally. No facial asymmetry. No tongue deviation or fasciculation. Motor Examination: 5/5 strength in the upper and lower extremities with normal tone throughout. Reflexes 2+ throughout with downgoing plantar responses. Sensation is intact in light touch. Vibration was intact at the toes. Proprioception is normal at the toes. Coordination: Normal zemgde-[id number] and teil-iu-evfj testing bilaterally. Gait : Deferred due to post tPA at this time. DIAGNOSTIC STUDIES/LAB DATA: WBC of 7.1, hemoglobin of 14.8, hematocrit of 43, platelet count of 226. INR is 0.91, aPTT 34.7. Sodium 139, potassium 4.0, chloride of 108, carbon dioxide of 25, anion gap of 6, BUN of 12, creatinine is 0.64, LDL is 145, cholesterol is 234. Transthoracic echo was completed on 09/05/19 that showed that there is a plaque visualized in the descending aorta. There is mild focal calcification involving the noncoronary cusp. Valve mobility is restricted without significant stenosis. She did not have a PFO. Her ejection fraction is 60% to 65%. ASSESSMENT AND RECOMMENDATIONS: Mrs. Elham Colin is an 79-year-old female who has history of factor V Leiden mutation, unsure if it is homozygous or heterozygous, but I suspect it is heterozygous, who presented to the [facility] ED with sudden onset aphasia. The patient received tPA with the recommendation of the [facility] Telestroke Service. The patient' s symptoms completely resolved overnight. She had a bout of headaches last night that resolved as well. The patient stated that she may have been hungry hence could have been having headaches related to that. Currently, she has no focal neurological deficits. She is pending an MRI study tonight. 1. Aphasia. Suspect that she may have had a left MCA vascular territory ischemic infarction, but given the resolution of her symptoms, it could also be transient ischemic attack to that distribution. Her risk factor include factor V Leiden mutation as well as age and strong family history of stroke. NIH stroke scale was 0. I recommend holding off on any antiplatelet or anticoagulation at this time until her MRI shows no evidence of intracranial hemorrhage. Once the MRI is negative for intracranial hemorrhage, please start her on dual-antiplatelet therapy with aspirin and Plavix therapy. Aspirin 81 mg and Plavix 75 mg daily x1. Please start her on atorvastatin 80 mg nightly. Please obtain a vitamin B12 level. No need for a repeat CT in 24 hours if the MRI is unremarkable for any hemorrhagic stroke. If she has anymore migraine like headaches, please treat her with magnesium sulfate 2 g IV x1. She may leave the ICU today if the MRI is negative for any hemorrhage. She can be transferred to the Med/Surg floor at [address] [place] [address]. DVT prophylaxis should be started and I would recommend continuing SCDs for now. DVT prophylaxis should be started with SCDs. 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 She has no motor or fine movement abnormalities nor did she have any swallowing difficulties. I will continue to follow. [id number]/[facility] #: [id number] KIMMIE
[2019-09-06] MEDS ORDERED: Atorvastatin* 80 MG TAB PO SCH (21:00)
[2019-09-07] MEDS ORDERED: Clopidogrel TAB* 75 MG PO SCH (09:00)
[2019-09-07] MEDS ORDERED: Aspirin EC TAB* 81 MG TAB.EC PO SCH (09:00)
--- NOTE | 2019-09-07 10:42 | PN ---
Subjective Date of Service: 09/07/19 Length of Stay: 2 Days Neurology is following for TIA. Interval History: She is doing well. She has no symptoms of headaches, visual disturbance, or word finding difficulty. She still questions why she had the rainbow like visual obscuration prior to the event of word finding difficulty. Brain CT head without contrast 09/05/19: no acute intracranial abnormality. Brain CT head without contrast 09/05/19: no acute intracranial abnormality. This study was done hours after the tPA because she was complaining of headaches. Brain CTA head and neck without contrast 09/05/19: no LVO TTE 09/06/19: EF 60-65%. No PFO. MRI Brain without contrast 09/06/19: No restricted diffusion to suggest acute infarct. There are multiple foci of elevated T2/Flair signal within the periventricular and subcortical white matter. Brain CT head 09/06/19: no acute intracranial pathology. Review of Systems: Denied CP, SOB, or palpitations. Objective Active Medications: Acetaminophen (Tylenol Tab*) 650 mg PO Q6H PRN PRN Reason: PAIN - MILD Last Admin: 09/06/19 06:17 Dose: 650 mg Aspirin (Aspirin Ec Tab*) 81 mg PO DAILY PENDING SALE TO [facility] Last Admin: 09/07/19 09:15 Dose: 81 mg Atorvastatin Calcium (Lipitor*) 80 mg PO 2100 PENDING SALE TO [facility] Last Admin: 09/06/19 20:58 Dose: 80 mg Clopidogrel Bisulfate (Plavix Tab*) 75 mg PO DAILY PENDING SALE TO [facility] Last Admin: 09/07/19 09:15 Dose: 75 mg Ondansetron HCl (Zofran Inj*) 4 mg IV Q6H PRN PRN Reason: NAUSEA Vital Signs 09/06/19 09/06/19 09/06/19 11:00 11:59 12:00 Temperature 97 F Pulse Rate 91 94 Respiratory 20 17 Rate Blood Pressure 137/103 107/91 (mmHg) O2 Sat by Pulse 96 94 Oximetry 09/06/19 09/06/19 09/06/19 13:00 14:00 14:01 Temperature Pulse Rate 80 86 86 Respiratory 19 20 18 Rate Blood Pressure 117/74 127/95 (mmHg) O2 Sat by Pulse 95 94 94 Oximetry 09/06/19 09/06/19 09/06/19 15:00 16:00 17:00 Temperature 97.5 F Pulse Rate 85 75 Respiratory 24 22 20 Rate Blood Pressure 144/83 131/86 (mmHg) O2 Sat by Pulse 95 97 Oximetry 09/06/19 09/06/19 09/06/19 17:33 18:00 19:25 Temperature 98.1 F Pulse Rate 75 85 97 Respiratory 16 20 16 Rate Blood Pressure 133/84 119/73 (mmHg) O2 Sat by Pulse 97 96 95 Oximetry 09/06/19 09/06/19 09/07/19 19:51 23:08 03:15 Temperature 98.9 F 97.7 F Pulse Rate 90 69 Respiratory 16 16 16 Rate Blood Pressure 121/63 139/85 (mmHg) O2 Sat by Pulse 94 98 Oximetry 09/07/19 09/07/19 07:47 07:54 Temperature 97.5 F Pulse Rate 70 Respiratory 20 16 Rate Blood Pressure 129/68 (mmHg) O2 Sat by Pulse 96 Oximetry Intake and Output Last 24 Hours 09/05/19 09/06/19 09/07/19 09/08/19 06:59 06:59 06:59 06:59 Intake Total 104.2 200 Balance 104.2 200 Weight 108 lb 0.424 oz 108 lb 0.424 oz Intake: IV Fluids 44.2 Oral 60 200 Other: Estimated Void Large Large # Voids 3 Oxygen Devices in Use Now: None Neurology Exam: General: Well nourished, well developed, and in no acute distress HEENT: Normocephelic/atraumatic, sclera anicteric, mucous membranes moist Neck: Supple Extremities: No clubbing, cyanosis, or edema Neurological Findings: Awake, alert, and oriented to person, place, and time. Speech: fluent without dysarthria, repetition intact Cranial Nerve: PERRL, EOM intact, VFF, no nystagmus, face symmetric bilaterally , facial sensation intact, hearing intact to finger rub bilaterally, palate elevates symmetrically, tongue midline, SCM and Trapezius s/s. Motor: s/s throughout, proximal and distal extremities x4 tone/bulk normal Sensation: intact to LT/PP bilaterally upper and lower extremities Deep Tendon Reflex: 2+ symmetric in the upper/lower extremities, Babinski - down going Finger to nose, rapid alternating movements intact without tremor, no dysdiadochokinesia Gait: intact with good arm swing and stride Result Diagrams: 09/06/19 04:42 09/06/19 04:42 Microbiology and Other Data: Microbiology 09/05/19 21:00 Nasal Screen MRSA (PCR) - Final Nasal Mrsa Not Detected Assessment/Plan Elham Colin is an 79-year-old female with history of dyslipidemia, Factor V Leiden mutation (heterozygous), who presented to [facility] with aphasia, headache , and visual obscuration on 09/05/2019. She received IV alteplase therapy by TeleStroke. NIHSS today is 0. 1. Transient aphasia s/p IV alteplase therapy due to TIA to the left MCA vascular territory. Other differential diagnosis include complicated migraine. Recommendations: - DAPT with aspirin 81 mg and Plavix 75 mg daily for 21 days. Please discontinue Plavix on 09/27/2019. - Atorvastatin 80 mg nightly for 3 months. Decrease to 40 mg thereafter. - TIA education was provided. - mRS: 0 - She has no fine motor movement abnormalities, gait or speech/language deficits. Therefore, no need for PT/OT/MEDICAL CLAIMS MANAGER evaluation - Please check a vitamin b12 and TSH level - Continue to monitor for 24 hours. 2. History of Factor V Leiden mutation (heterozygous). The patient has never had a venous clot. She has no history of miscarriages. She has no PFO to suspect that this TIA presentation was related to a paradoxical event. Therefore, I don't recommend anticoagulation therapy. If there is any concern about this, or if she has recurrent TIA/new stroke symptoms, we can have her see a glass carrier as an outpatient for further evaluation. 3. Dyslipidemia. Continue atorvastatin 80 mg nightly 4. Migraine headache. She is asymptomatic. Recommend magnesium oxide 400 mg daily if she has 2 or more headaches a week. Follow-up with neurology in 4-6 weeks. A follow-up appointment will be arranged by our staff.
[2019-09-07 11:52] LABS: TSH (Thyroid Stimulating Horm) 1.48 mcIU/mL (0.34-5.60)
[2019-09-07 16:12] VITALS: BP 129/70
--- NOTE | 2019-09-07 17:15 | DS ---
CC: Dr. Gauri Herbert * DISCHARGE SUMMARY: DATE OF ADMISSION: 09/05/19 DATE OF DISCHARGE: 09/07/19 PRIMARY CARE PROVIDER: Dr. Gauri Herbert. PRIMARY DIAGNOSIS: Transient ischemic attack versus complicated migraine. SECONDARY DIAGNOSES: 1. Migraines. 2. Factor V Leiden. 3. Hyperlipidemia. 4. Breast cancer. CONSULTS: Dr. Sherman of Neurology. DISCHARGE MEDICATIONS: 1. Aspirin 81 mg daily. 2. Plavix 75 mg daily for a total of 3 weeks. 3. Atorvastatin 80 mg daily. 4. Vitamin D 1000 units daily. 5. Turmeric 1 capsule daily. 6. Vitamin C 500 mg daily. 7. Vitamin A 10,000 units daily. 8. Pantoprazole 20 mg daily. HISTORY OF PRESENT ILLNESS: Ms. Colin is an 79-year-old woman with history of dyslipidemia, migraine headaches, breast cancer in remission, factor V Leiden mutation, who is presenting with word finding difficulty. The patient was last known well at approximately 4 p.m. on day of presentation. At 5 p.m., she was speaking with her friend who noticed that she was having word findings difficulty. The patient did not notice this deficit but was having trouble forming sentences and phrases or naming objects in the room. The patient's friend immediately called her daughter, Helen, who called the patient and noticed the word finding difficulty as well so EMS was contacted. HOSPITAL COURSE: The patient presented to the emergency room with code villalpando activated at 5:28 p.m. She was evaluated by [facility] via telestroke. By 5:43 p.m. NIH stroke scale at that time was presumably elevated, but unclear exactly what as they did not have the report. CT head without contrast was obtained that showed no evidence of intracranial hemorrhage, so IV alteplase was administered at 6:46 p.m. receiving a total of 49.1 mg of IV tPA. The patient reports immediate improvement in her symptoms after this medication. CTA head and neck were obtained and showed no evidence of large vessel occlusion. She was admitted to the ICU for post tPA monitoring. Few hours after admission, she developed left-sided headache. The patient does have a history of migraine, but has not had recurrence of headache in several months, so she was rushed to the CT scanner to rule out hemorrhage. This CT scan did not show any evidence of intracranial hemorrhage and she had resolution of her headache with ongoing monitoring. By the next day, she had undergone a brain MRI, which was with multiple foci of elevated T2/FLAIR signal within the periventricular and subcortical white matter. A nonspecific finding , but can be seen associated with migraine headache or as the sequela of previous infarction or inflammation. By the next morning, the patient was transferred out of the ICU. She exhibited no signs of bleeding. Her vital signs were stable. Her labs were largely unremarkable and she was deemed safe for discharge. Dr. Sherman of Neurology recommended to continue dual antiplatelets for the next 3 weeks and then aspirin alone indefinitely as well as atorvastatin 80 mg daily for the next 3 months to decrease to 40 mg thereafter. By day of discharge, the patient had no fine motor abnormalities or speech or language deficit so she was not seen and evaluated by Physical Therapy. She is recommended to follow up with Neurosurgery outpatient in 4 to 6 weeks. Otherwise a complete 10-point review of systems was performed and all pertinent positives and negatives were listed in the HPI. PHYSICAL EXAMINATION: Afebrile, heart rate 76, blood pressure 132/87, respiratory rate 16, oxygen saturation 97% on room air. In general, she is a well-appearing woman in no acute distress who is alert and interactive, very pleasant. HEENT with moist mucous membranes. OP clear. Neck: Supple. No JVD. Lungs: Clear to auscultation bilaterally. Heart: Regular rate and rhythm, no murmurs, gallop, or rubs. Abdomen: Soft, nontender, and nondistended. Extremities: Warm and well perfused without evidence of edema. Neuro: CN II through XII intact. No slurred speech or dysarthria. A and O x3. Motor 5/5 in all extremities. Sensation intact. No dysdiadochokinesia. PERTINENT DIAGNOSTIC STUDIES: CBC notable for slight macrocytosis 299, which appears to be the patient's baseline without anemia. BMP, LFTs, coags within normal limits. TSH 1.48. Vitamin B12 elevated to 1400. LDL 145 with HDL 65 and triglycerides 119. Hemoglobin A1c 5.6. CT scan on evening prior to discharge without acute intracranial pathology. Brain MRI multiple foci of elevated T2/FLAIR signal within the periventricular and subcortical white matter. All these findings were nonspecific. They could be seen in association with migraine headache as a sequela of previous infection or inflammation and chronic small vessel ischemia. Demyelinating disease also on differential but is considered less likely in the absence of appropriate clinical presentation. No evidence of acute infarct. CTA, no stenosis or occlusion of the extracranial internal carotid arteries bilaterally. Additional findings unremarkable for etiology of the patient's symptoms. Transthoracic echocardiogram with LV systolic function normal and estimated EF 60% to 65%. There is a interventricular dyssynchrony. Doppler parameters are consistent with abnormal left ventricular relaxation which is grade 1 diastolic dysfunction. A PFO was not demonstrated by color Doppler or agitated saline contrast. Aortic valve with mild focal calcification involving the noncoronary cusp. Valve mobility is restricted without significant stenosis. Tricuspid valve with mild regurgitation. There is a plaque visualized in the descending aorta. DISCHARGE PLAN: The patient will be discharged to follow up with her primary care physician as well as Neurology Clinic. For possible TIA which is most likely given that her symptoms resolved after tPA administration, the patient was started on dual antiplatelets. She should continue Plavix for 3 weeks total and aspirin indefinitely afterwards. She should also start taking atorvastatin 80 mg daily for 3 months and then decrease to 40 mg after that. For history of chronic migraines, if the patient is having 2 or more headaches per week, she can be initiated on prophylaxis with magnesium and riboflavin. She does not report a high frequency of migraine headaches. The patient was given return precautions, which include but are not limited to her recurrence of aphasia, focal neuro deficits, headaches or evidence of bleeding. DIET: Healthy diet, low in processed foods. ACTIVITY: As tolerated. DISPOSITION: To home. CONDITION: Good. TIME SPENT: Approximately 60 minutes was spent on the discharge of this patient , more than half of which was spent with care coordination at bedside for interview and exam. [id number]/[facility] #: [id number] KIMMIE
== END 2019-09-07 18:00 | disposition home or self-care (01) | DRG 62 ==
LOC: ED 17:45 → ICU 19:52 → MEDTELE 09-06 17:24
PROVIDERS: ADMIT Hospitalist; ATTEND Internal Medicine
DX: G45.9 Transient cerebral ischemic attack, unspecified (principal); D68.51 Activated protein C resistance; G43.909 Migraine, unspecified, not intractable, without status migrainosus; K58.9 Irritable bowel syndrome, unspecified; M81.0 Age-related osteoporosis without current pathological fracture; M85.80 Other specified disorders of bone density and structure, unspecified site; E78.5 Hyperlipidemia, unspecified; J47.9 Bronchiectasis, uncomplicated; I44.7 Left bundle-branch block, unspecified; Z85.3 Personal history of malignant neoplasm of breast; Z92.21 Personal history of antineoplastic chemotherapy; Z88.5 Allergy status to narcotic agent; Z88.1 Allergy status to other antibiotic agents; Z90.12 Acquired absence of left breast and nipple; Z82.3 Family history of stroke; Z79.82 Long term (current) use of aspirin; Z79.899 Other long term (current) drug therapy
CPT/HCPCS: 36415; 70450; 70496; 70498; 70551; 71045; 80048; 80053; 80061; 82607; 83036; 83605; 84443; 84484; 85025; 85610; 85730; 87641; 93005; 93306; 96365; 99285; A9270-GY; J2997; Q9967

== ENCOUNTER 2019-09-27 20:39 | Emergency (ER) | payer MEDICARE, BC ==
--- OUTSIDE RECORDS SUMMARY | 2019-09-27 20:54 | XMS REPORT | Continuity of Care Document ---
:1940 External Reference #:[id number] Author Name Henrry Posadas M.D. (transmitted by agent of provider Lydia Maciel) Address [address] [facility], [place] [address] Care Team Providers Name Role Phone James Encarnacion MD - Gastroenterology Care Team Information Electric Vehicle Electrician [phone] Kimo Smith MD - Obstetrics & Care Team Information Electric Vehicle Electrician Gynecology Matthias Geronimo MD - Care Team Information Electric Vehicle Electrician [phone] Otolaryngology Aneesh Fofana MD - Pulmonary Disease Care Team Information Electric Vehicle Electrician [phone] Gauri Herbert M.D. - Family Medicine Care Team Information Electric Vehicle Electrician Problems Active Problems Provider Date Heterozygous Factor [...] Significant Secondhand Smoke Exposure Smoking Status Reviewed: 09/10/19 Significant Secondhand Smoke Exposure ETOH Use 10/05/2018 [...] mouth 30tabs Bruna 07/03/2019 daily prior to first MD Alexis 20mg Tablets DR trip Frye one sc every 6 1ml M81.0 Gauri Herbert MD 02/05/2019 60mg/ml Soln months Prefill Syringe Nebulizer every 6 hours as 1units J47.9 Nina Cortez, 12/28/2018 Misc needed M.D. Nebulizer 1 unit nebulization 1units J47.9 Nina Cortez, 12/28/2018 Kit/Tubing/Mouthpiec every 6 hours as M.D. e needed Kit Shingrix 0.5 milliliters 2units Tony Ulrich 10/05/2018 50mcg/0.5ML intramuscular now Gamal Estrada,FACP Suspension Rec and 2-3 months later repeat Calcium Citrate + D3 2 per day Tony Ulrich 09/24/2016 Gamal Estrada,ALLIEP [phone] Tablets Vitamin A 1 daily Tony Ulrich 07/23/2011 5000Unit Gamal Estrada,FACP Capsules Potassium/Magnesium 1 daily Tony Ulrich 07/23/2011 Aspartate Gamal Estrada,FACP 50-20mg Capsules Lipitor 1 by mouth every day Unknown 80mg Tablets Clopidogrel 1 by mouth every day Unknown Bisulfate 75mg Tablets Symbicort 1 puff by mouth R05 Unknown twice a day 80-4.5mcg/Act Aerosol Systane 3 times per day Unknown 0.4-0.3% Solution Zaditor 1 drop per day Unknown 0.025% Solution Probiotic 2 by mouth every day Unknown Capsules Womens Multi 1 per day Unknown Capsules [place] Stress B one per day Unknown [facility] Vitamin B12 please take one Unknown daily 1000mcg Tablets Vitamin B-2 4 per day Unknown 100mg Tablets Glucosamine daily w/ MSM Unknown Chondroitin 1500 Complex 1500Com Capsules [place] Mushroom 8 per day Unknown Capsule Magnesium 1 po bid 30caps Unknown 400mg Capsules Vitamin C 7 tablets daily Unknown 2000mg Tablets History Medications Azithromycin take 2 tablets 6tabs R05 Bruna Espinoza 07/27/2019 - 250mg on day 1, then 1 08/01/2019 Tablets tab daily for days 2-5 Symbicort 1 puff by mouth 10.200gm R05 Kameron Kapadia MD 04/19/2019 - 80-4.5mcg/Act twice a day 05/19/2019 Aerosol Medications Administered in Office Medication SIG Qnty Indications Ordering Provider Date Prolia Injection, Denosumab, Nurse Visit A 05/08/2019 1MG Injection Celestone 3 mg and 3mg Denisha Tang, 05/01/2014 Injection M.D. Celestone 3 mg and 3mg Denisha Sawant-Young, 10/10/2013 Injection M.D. Immunizations CPT Code Status Date Vaccine Reaction Lot # [id number] Given 05/08/2018 Influenza Virus Vaccine, [id number] Quadrivalent, Split, Preservative Free 30015 Given 05/02/2017 Influenza Virus Vaccine, pt tolerated well [id number] Quadrivalent, Split, Preservative Free 51078 Given 05/15/2016 Influ Virus Vaccine, noo reaction noted ... [id number] Quadrivalent, Split Virus, [place] [address] Given 04/17/2015 Influenza Virus Vaccine, no reaction , no [id number] Quadrivalent, Split, comments Preservative Free 83597 Given 09/19/2014 Pneumococcal Conjugate [id number] Vaccine 13 Valent For Intramuscular Use 59057 Given 05/03/2014 Influenza Virus Vaccine, Quadrivalent, Split, Preservative Free 07167 Given 05/03/2014 Influenza Virus Vaccine, [id number] Quadrivalent, Split, Preservative Free 33940 Given 05/07/2013 Flu Vaccine Split Virus [id number] Preservative Free For Indiv 3Yr Older Q2038 Given 04/04/2012 Fluzone Vaccine [id number] Q2038 Given 04/09/2011 Fluzone Vaccine [id number] Q2038 Given 04/09/2011 Fluzone Vaccine Q2038 Given 04/09/2011 Fluzone Vaccine 61941 Given 05/08/2010 Influenza Virus 3Yrs & [id number] Over 77978 Given 05/08/2010 Influenza Virus 3Yrs & Over 96469 Given 07/21/2009 Influenza Virus Vaccine, [id number] 5P Pandemic Formulation 73496 Given 05/07/2008 Influenza Virus 3Yrs & Over 21036 Given 05/07/2008 Influenza Virus 3Yrs & 7723 Over 44550 Given 09/02/2006 Zoster (Zostavax) 06995 Given 12/10/2005 Tetanus And Diptheria (Td) For Adult Use Preservative Free 08878 Given 02/09/2005 Pneumonia Vaccine Vital Signs Date Vital Result Comment 09/10/2019 1:04pm Height 65.5 inches 5'5.50" Weight 115.25 lb Heart Rate 81 /min BP Systolic Sitting 150 mmHg BP Diastolic Sitting 80 mmHg Body Temperature 96.3 F O2 % BldC Oximetry 96 % BMI (Body Mass Index) 18.9 kg/m2 08/07/2019 11:32am Height 65.5 inches 5'5.50" Weight 117.00 lb Heart Rate 68 /min BP Systolic Sitting 146 mmHg BP Diastolic Sitting 90 mmHg Pain Level 7 O2 % BldC Oximetry 96 % BMI (Body Mass Index) 19.2 kg/m2 Results Test Acquired Date Facility Test Result H/L Range Note CBC Auto 09/05/2019 [facility] White Blood 7.2 10^3/uL Normal 3.5-10.[address] [place] [address] [phone] Red Blood Count 4.66 10^6/uL Normal 3.70-4.87 Hemoglobin 15.6 g/dL Normal 12.0-16.0 Hematocrit 46 % Normal 35-47 Mean Corpuscular Volume 99 fL High 80-97 Mean Corpuscular Hemoglobin 34 pg High 27-31 Mean Corpuscular HGB Conc 34 g/dL Normal 31-36 Red Cell Distribution Width 14 % Normal 10-15 Platelet Count 252 10^3/uL Normal 150-450 Mean Platelet Volume 7.8 fL Normal 7.4-10.4 Abs Neutrophils 4.6 10^3/uL Normal 1.5-7.7 Abs Lymphocytes 1.8 10^3/uL Normal 1.0-4.8 Abs Monocytes 0.6 10^3/uL Normal 0-0.8 Abs Eosinophils 0.2 10^3/uL Normal 0-0.6 Abs Basophils 0.1 10^3/uL Normal 0-0.2 Abs Nucleated RBC 0.0 10^3/uL Granulocyte % 63.7 % Lymphocyte % 24.8 % Monocyte % 7.9 % Eosinophil % 2.5 % Basophil % 1.1 % Nucleated Red Blood Cells % 0.1 Inr/Protime 09/05/2019 [facility] Inr 0.91 Normal 0.82-1.09 1 [address] [place] [address] [phone] Laboratory test 09/05/2019 [facility] Partial 34.7 Normal 26.0 -38.0 finding [address] [facility] [place] [address] Time PTT [phone] Lactic Acid 0.5 mmol/L Normal 0.5-2.0 2 Comp Metabolic 09/05/2019 [facility] Sodium 138 mmol/L Normal 135-145 Panel [address] [place] [address] [phone] Chloride 104 mmol/L Normal 101-111 Co2 Carbon Dioxide 28 mmol/L Normal 22-32 Glucose 94 mg/dL Normal 70-100 Blood Urea Nitrogen 13 mg/dL Normal 6-24 Creatinine 0.75 mg/dL Normal 0.51-0.95 BUN/Creatinine Ratio 17.3 Normal 8-20 Calcium 9.8 mg/dL Normal 8.6-10.3 Total Protein 7.3 g/dL Normal 6.4-8.9 Albumin 4.6 g/dL Normal 3.2-5.2 Globulin 2.7 g/dL Normal 2-4 Albumin/Globulin Ratio 1.7 Normal 1-3 Total Bilirubin 0.60 mg/dL Normal 0.2-1.0 Alkaline Phosphatase 57 U/L Normal 34-104 Alt 23 U/L Normal 7-52 Egfr Non- 74.4 >60 Egfr 90.0 >60 3 Potassium TNP mmol/L 3.5-5.0 4 Anion Gap 6 mmol/L Normal 2-11 Ast TNP U/L 13-39 5 Lipid Profile 09/05/2019 [facility] Triglycerides 119 mg/dL 6 (Trig/Chol/HDL) [address] [place] [address] [phone] Cholesterol 234 mg/dL 7 HDL Cholesterol 65.5 mg/dL 8 LDL Cholesterol 145 mg/dL 9 Laboratory 09/05/2019 [facility] Troponin-I 0.00 <0.03 10 test finding 101 (TnI) ng/[place] [address] [phone] CBC No Diff 08/07/2019 [facility] White Blood 6.7 Normal 3.5- 10.[address] Count 10^3/[place] [address] [phone] Red Blood Count 4.58 10^6/uL Normal 3.70-4.87 Hemoglobin 15.4 g/dL Normal 12.0-16.0 Hematocrit 45 % Normal 35-47 Mean Corpuscular Volume 99 fL High 80-97 Mean Corpuscular Hemoglobin 34 pg High 27-31 Mean Corpuscular HGB Conc 34 g/dL Normal 31-36 Red Cell Distribution Width 14 % Normal 10-15 Platelet Count 260 10^3/uL Normal 150-450 Mean Platelet Volume 8.9 fL Normal 7.4-10.4 Basic Metabolic 08/07/2019 [facility] Sodium 140 mmol/L Normal 135-[address] [place] [address] [phone] Potassium 4.3 mmol/L Normal 3.5-5.0 Chloride 105 mmol/L Normal 101-111 Co2 Carbon Dioxide 25 mmol/L Normal 22-32 Anion Gap 10 mmol/L Normal 2-11 Glucose 95 mg/dL Normal 70-100 Blood Urea Nitrogen 21 mg/dL Normal 6-24 Creatinine 0.79 mg/dL Normal 0.51-0.95 BUN/Creatinine Ratio 26.6 High 8-20 Calcium 9.9 mg/dL Normal 8.6-10.3 Egfr Non- 70.0 >60 Egfr 84.7 >60 11 1 Standard intensity warfarin therapeutic range: 2.0-3.0 High intensity warfarin therapeutic range: 2.5-3.5 2 [place] Severe Sepsis and Septic Shock Management Bundle Measure requires all lactic acids initially measuring >2.0 mmol/L be repeated. 3 Because ethnic data is not always readily [...] 15-29 5 Kidney failure <15 (or dialysis) 4 Specimen Hemolyzed. Result may not be valid. Unable to report test result due to hemolysis. 5 Unable to report test result due to hemolysis. 6 Desirable: <150 Borderline High: 150-199 High: 200-499 Very High: >500 7 Desirable: <200 Borderline High: 200-239 High: >239 8 Low: <40 Desirable: 40-60 High: >60 9 Desirable: <100 Near Optimal: 100-129 Borderline High: 130-159 High: 160-189 Very High: >189 10 Troponin-I testing on Plasma Separator Tubes (PST) has a known false positive rate of 0.20-0.40%. All positive troponins reflex immediately to secondary confirmatory testing. Using the Allostatix DxI 800 Access Immunoassay systems, the 99th percentile upper reference limit was demonstrated to be < 0.03 ng/mL. 11 Because ethnic data is not always readily [...] 15-29 5 Kidney failure <15 (or dialysis) Procedures Date Code Description Status 05/08/2019 06009 Admin Of Inj Completed 10/25/2018 [id number] Bone Mineral Density Test Completed 10/21/2017 [id number] Mammogram Completed 10/20/2016 [id number] Bone Mineral Density Test Completed 10/20/2016 [id number] Mammogram Completed 04/09/2015 [id number] Colonoscopy Completed 07/05/2013 [id number] Bone Mineral Density Test Completed 12/28/2012 [id number] Mammogram Completed 10/22/2011 [id number] Colonoscopy Completed 09/16/2010 [id number] Mammogram Completed 09/05/2009 [id number] Colonoscopy Completed 07/11/2008 [id number] Mammogram Completed 04/10/2008 [id number] Bone Mineral Density Test Completed Medical Devices Description No Information Available Encounters Type Date Location Provider Dx Diagnosis Office Visit 09/05/2019 [facility], I63.9 Cerebral 10:08a Assoc,pc N.P. infarction, Hospitalists unspecified E78.5 Hyperlipidemia, unspecified G43.909 Migraine, unsp, not intractable, without status migrainosus Office Visit 08/07/2019 11:30a [facility] - Bruna Espinoza MD R05 Cough Ccmob M79.89 Other specified soft tissue disorders Office Visit 07/27/2019 1:00p [facility] - Bruna Espinoza MD R05 Cough Ccmob J47.9 Bronchiectasis, uncomplicated Office Visit 04/19/2019 9:45a [facility] Kameron Kapadia MD R05 [facility] J47.9 Bronchiectasis, uncomplicated R91.8 Other nonspecific abnormal finding of lung field Assessments Date Code Description Provider 09/10/2019 I63.9 Cerebral infarction, unspecified Henrry Posadas M.D. 09/06/2019 I63.9 Cerebral infarction, unspecified Lilo Monahanlonny, CHAINSTITCH FELLED SEAM OPERATOR 09/06/2019 E78.5 Hyperlipidemia, unspecified Lilo Zaldivar Doto, CHAINSTITCH FELLED SEAM OPERATOR 09/06/2019 Z85.3 Personal history of malignant neoplasm Lilo Zaldivar Brinda, CHAINSTITCH FELLED SEAM OPERATOR of breast 09/06/2019 Z87.09 Personal history of other diseases of Lilo Parry, CHAINSTITCH FELLED SEAM OPERATOR the respiratory system 09/05/2019 I63.9 Cerebral infarction, unspecified Fletcher Lerma, N.P. 09/05/2019 E78.5 Hyperlipidemia, unspecified Fletcher Lerma, N.P. 09/05/2019 G43.909 Migraine, unspecified, not intractable, Fletchertunde Lerma, N.P. without status migrainosus 08/07/2019 R05 Cough Bruna Espinoza MD 08/07/2019 M79.89 Other specified soft tissue disorders Bruna Espinoza MD 07/27/2019 R05 Cough Bruna Espinoza MD 07/27/2019 J47.9 Bronchiectasis, uncomplicated Bruna Espinoza MD 05/08/2019 M81.0 Age-related osteoporosis without current Nurse Visit A pathological fracture 04/19/2019 R05 Cough Kameron Kapadia MD 04/19/2019 J47.9 Bronchiectasis, uncomplicated Kameron Kapadia MD 04/19/2019 R91.8 Other nonspecific abnormal finding of Kameron Kapadia MD lung field Plan of Treatment Future Appointment(s):09/13/2019 1:00 pm - Bulmaro Gonzalez MD at [facility]09/28/2019 10:00 am - Eric Niño LCSW at [facility] - [facility]09/10/2019 - Henrry Posadas M.D.I63.9 Cerebral infarction, unspecifiedComments[place] [place] with acute slurred speech. Rx'd with TPA for a possible stroke with resolution of speech sx. MRI (-) for a CVA, but scattered white matter changes noted. Pt with no recurrent speech sx, but she feels more tired in general. On Plavix and ASA together for 3 weeks, then ASA alone. Also started on Atorvastatin 80 mg daily for at least 3 months. Neuro recheck was advised after 4-6 weeks. Recheck lipids after 2 months. Continue rest, activities as tolerated. Neuro referral entered.Referral:Lan Wiseman M.D., Neurology Functional Status Description No Information Available Mental Status Description No Information Available Referrals Refer to Dr Reason for Referral Status Appt Date Lan Wiseman M.D. Hospital follow up for a possible stroke; Created admitted 09/05-09/07 [address] [place] [address] [place] [address] [phone] Lisa Chamberlain MD Sent 09/07/2019 [address], [place] [address] [phone]
--- OUTSIDE RECORDS SUMMARY | 2019-09-27 20:54 | XMS REPORT | Continuity of Care Document ---
:1940 External Reference #:[id number] Author Name Bulmaro Gonzalez MD (transmitted by agent of provider Crys Oreilly) Address [address] [place] [address] Care Team Providers Name Role Phone James Encarnacion MD - Gastroenterology Care Team Information Back Stayer Kimo Smith MD - Obstetrics & Care Team Information Back Stayer [phone] Gynecology Matthias Geronimo MD - Care Team Information Back Stayer [phone] Otolaryngology Aneesh Fofana MD - Pulmonary Disease Care Team Information Back Stayer Gauri Herbert M.D. - Family Medicine Care Team Information Back Stayer Problems Active Problems Provider Date Heterozygous Factor [...] Significant Secondhand Smoke Exposure Smoking Status Reviewed: 09/13/19 Significant Secondhand Smoke Exposure ETOH Use 10/05/2018 [...] Medications SIG Qnty Indications Ordering Date Provider Sildenafil Citrate Up to once or twice 60tabs I73.00 Bulmaro 20mg daily maximum as MD Lisa 0 Tablets needed for severe Raynaud's episodes Hydroxychloroquine take one tab by 180tabs M06.4 Bulmaro Sulfate mouth daily for one MD Lisa 0 200mg Tablets week, then increase to one tab twice daily thereafter Pantoprazole Sodium Take 1 tab by mouth 30tabs Bruna 20mg daily prior to MD Alexis [address] first meal Prolia one sc every 6 1ml M81.0 aGuri Herbert, 60mg/ml Soln Prefill steve THOMPSON 9 Syringe Nebulizer every 6 hours as 1units J47.9 Nina Misc needed Gamal Cortez 9 Nebulizer 1 unit nebulization 1units J47.9 Nina Kit/Tubing/Mouthpiece every 6 hours as Gamal Cortez Kit needed Shingrix 0.5 milliliters 2units Tony Ulrich 50mcg/0.5ML intramuscular now Natalie 9 Suspension Rec and 2-3 months M.Serg,FACP later repeat Calcium Citrate + D3 2 per day Tony Ulrich Natalie, [id number] Tablets M.D.,FACP Potassium/Magnesium 1 daily Tony Ulrich Aspartate Rozel, 1 50-20mg Capsules M.D.,FACP Vitamin A 1 daily Tony Ulrich 5000Unit Capsules Rozel, 1 M.D.,FACP Lipitor 1 by mouth every Unknown 80mg Tablets day 0 Clopidogrel Bisulfate 1 by mouth every Unknown 75mg day 0 Tablets Symbicort 1 puff by mouth R05 Unknown 80-4.5mcg/Act twice a day 0 Aerosol Systane 3 times per day Unknown 0.4-0.3% Solution 0 Zaditor 1 drop per day Unknown 0.025% Solution 0 Probiotic 2 by mouth every Unknown Capsules day 0 Womens Multi 1 per day Unknown Capsules 0 [place] Stress B one per day Unknown 0 [facility] Vitamin B12 please take one Unknown 1000mcg daily 0 Tablets Vitamin B-2 4 per day Unknown 100mg Tablets 0 Glucosamine Chondroitin daily w/ MSM Unknown 1500 Complex 0 1500Com Capsules [place] Mushroom 8 per day Unknown Capsule 0 Magnesium 1 po bid 30caps Unknown 400mg Capsules 0 Vitamin C 7 tablets daily Unknown 2000mg Tablets 0 History Medications Azithromycin take 2 tablets 6tabs [...] Injection Celestone 3 mg and 3mg Denisha Sawant-Young, 05/01/2014 Injection M.D. Celestone 3 mg and 3mg Denisha Sawant-Young, 10/10/2013 Injection M.D. Immunizations CPT Code Status Date Vaccine Reaction Lot # [id number] Given 05/08/2018 Influenza Virus Vaccine, [id number] Quadrivalent, Split, Preservative Free 42515 Given 05/02/2017 Influenza Virus Vaccine, pt tolerated well [id number] Quadrivalent, Split, Preservative Free 25292 Given 05/15/2016 Influ Virus Vaccine, noo reaction noted ... [id number] Quadrivalent, Split Virus, [place] [address] Given 04/17/2015 Influenza Virus Vaccine, no reaction , no [id number] Quadrivalent, Split, comments Preservative Free 10846 Given 09/19/2014 Pneumococcal Conjugate [id number] Vaccine 13 Valent For Intramuscular Use 98135 Given 05/03/2014 Influenza Virus Vaccine, Quadrivalent, Split, Preservative Free 98207 Given 05/03/2014 Influenza Virus Vaccine, [id number] Quadrivalent, Split, Preservative Free 06537 Given 05/07/2013 Flu Vaccine Split Virus [id number] Preservative Free For Indiv 3Yr Older Q2038 Given 04/04/2012 Fluzone Vaccine [id number] Q2038 Given 04/09/2011 Fluzone Vaccine [id number] Q2038 Given 04/09/2011 Fluzone Vaccine Q2038 Given 04/09/2011 Fluzone Vaccine 97204 Given 05/08/2010 Influenza Virus 3Yrs & [id number] Over 39156 Given 05/08/2010 Influenza Virus 3Yrs & Over 44714 Given 07/21/2009 Influenza Virus Vaccine, [id number] 5P Pandemic Formulation 75900 Given 05/07/2008 Influenza Virus 3Yrs & Over 58988 Given 05/07/2008 Influenza Virus 3Yrs & 7723 Over 70297 Given 09/02/2006 Zoster (Zostavax) 51916 Given 12/10/2005 Tetanus And Diptheria (Td) For Adult Use Preservative Free 32842 Given 02/09/2005 Pneumonia Vaccine Vital Signs Date Vital Result Comment 09/13/2019 12:49pm Height 65.5 inches 5'5.50" Weight 116.00 lb Heart Rate 78 /min BP Systolic Sitting 109 mmHg BP Diastolic Sitting 73 mmHg O2 % BldC Oximetry 98 % BMI (Body Mass Index) 19.0 kg/m2 09/10/2019 1:04pm Height 65.5 inches 5'5.50" Weight 115.25 lb Heart Rate 81 /min BP Systolic Sitting 150 mmHg BP Diastolic Sitting 80 mmHg Body Temperature 96.3 F O2 % BldC Oximetry 96 % BMI (Body Mass Index) 18.9 kg/m2 Results Test Acquired Date Facility Test Result H/L Range Note CBC Auto 09/05/2019 [facility] White Blood 7.2 10^3/uL Normal 3.5-10.[address] [place] [address] [phone] Red Blood Count 4.66 10^6/uL Normal 3.70-4.87 [...] Red Blood Cells % 0.1 Inr/Protime 09/05/2019 [facility] Inr 0.91 Normal 0.82-1.[address] [place] [address] [phone] Laboratory test 09/05/2019 [facility] Partial 34.7 Normal 26.0 -38.[address] [place] [address] Time PTT [phone] Lactic Acid 0.5 mmol/L Normal 0.5-2.0 2 Comp Metabolic 09/05/2019 [facility] Sodium 138 mmol/L Normal 135-[address] [place], [place] [id number] [phone] Chloride 104 mmol/L Normal 101-111 Co2 Carbon [...] TNP U/L 13-39 5 Lipid Profile 09/05/2019 [facility] Triglycerides 119 mg/dL 6 (Trig/Chol/HDL) [address] [place] [address] [phone] Cholesterol 234 mg/dL 7 HDL Cholesterol 65.5 mg/dL 8 LDL Cholesterol 145 mg/dL 9 Laboratory 09/05/2019 [facility] Troponin-I 0.00 <0.03 10 test finding [address] (TnI) ng/[place] [address] [phone] CBC No Diff 08/07/2019 [facility] White Blood 6.7 Normal 3.5- 10.[address] Count 10^3/[place] [address] [phone] Red Blood Count 4.58 10^6/uL Normal 3.70-4.87 Hemoglobin 15.4 g/dL Normal 12.0-16.0 Hematocrit 45 % Normal 35-47 Mean Corpuscular Volume 99 fL High 80-97 Mean Corpuscular Hemoglobin 34 pg High 27-31 Mean Corpuscular HGB Conc 34 g/dL Normal 31-36 Red Cell Distribution Width 14 % Normal 10-15 Platelet Count 260 10^3/uL Normal 150-450 Mean Platelet Volume 8.9 fL Normal 7.4-10.4 Basic Metabolic 08/07/2019 [facility] Sodium 140 mmol/L Normal 135-[address] [place] [address] [phone] Potassium 4.3 mmol/L Normal 3.5-5.0 Chloride 105 [...] High intensity warfarin therapeutic range: 2.5-3.5 2 [facility] Severe Sepsis and Septic Shock Management Bundle [...] immediately to secondary confirmatory testing. Using the [employer] DxI 800 Access Immunoassay systems, the 99th [...] dialysis) Procedures Date Code Description Status 05/08/2019 86729 Admin Of Inj Completed 10/25/2018 [id number] Bone Mineral Density Test Completed 10/21/2017 [id number] Mammogram Completed 10/20/2016 [id number] Bone Mineral Density Test Completed 10/20/2016 [id number] Mammogram Completed 04/09/2015 [id number] Colonoscopy Completed 07/05/2013 [id number] Bone Mineral Density Test Completed 12/28/2012 [id number] Mammogram Completed 10/22/2011 [id number] Colonoscopy Completed 09/16/2010 [id number] Mammogram Completed 09/05/2009 [id number] Colonoscopy Completed 07/11/2008 [id number] Mammogram Completed 04/10/2008 [id number] Bone Mineral Density Test Completed Medical Devices Description No Information Available Encounters Type Date Location Provider Dx Diagnosis Office Visit 09/06/2019 [facility] Lilo Zaldivar I63.9 Cerebral infarction, 10:08a SAIMA Parry unspecified E78.5 Hyperlipidemia, unspecified Z85.3 Personal history of malignant neoplasm of breast Z87.09 Personal history of other diseases of the respiratory system Office Visit 09/05/2019 [facility] Fletcher I63.9 Cerebral 10:08a Assocadele, N.P. infarction, Hospitalists unspecified E78.5 Hyperlipidemia, unspecified G43.909 Migraine, unsp, not intractable, without status migrainosus Office Visit 08/07/2019 11:30a [facility] Internal Medicine - Bruna Espinoza MD R05 Cough Ccmob M79.89 Other specified soft tissue disorders Office Visit 07/27/2019 1:00p [facility] - Bruna Espinoza MD R05 Cough Ccmob J47.9 Bronchiectasis, uncomplicated Office Visit 04/19/2019 9:45a Pulmonology And Sleep Kameron Kapadia MD R05 [facility] J47.9 Bronchiectasis, uncomplicated R91.8 Other nonspecific abnormal finding of lung field Assessments Date Code Description Provider 09/13/2019 J47.9 Bronchiectasis, uncomplicated Bulmaro Gonzalez MD 09/13/2019 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 09/06/2019 I63.9 Cerebral infarction, unspecified Lilo Parry, STORE STANDARDS ASSOCIATE 09/06/2019 E78.5 Hyperlipidemia, unspecified Lilo Parry, STORE STANDARDS ASSOCIATE 09/06/2019 Z85.3 Personal history of malignant neoplasm Lilo Parry STORE STANDARDS ASSOCIATE of breast 09/06/2019 Z87.09 Personal history of other diseases of Lilo Parry, STORE STANDARDS ASSOCIATE the respiratory system 09/05/2019 I63.9 Cerebral infarction, unspecified Fletcher Lerma, N.P. 09/05/2019 E78.5 Hyperlipidemia, unspecified Fletcher Lerma, N.P. 09/05/2019 G43.909 Migraine, unspecified, not intractable, Fletcher Lerma, N.P. without status migrainosus 08/07/2019 R05 [...] MD lung field Plan of Treatment Future Appointment(s):10/25/2019 4:00 pm - Bulmaro Gonzalez MD at [facility]09/28/2019 10:00 am - Eric Niño LCSW at [facility] - [facility]09/13/2019 - Bulmaro Gonzalez MDJ47.9 Bronchiectasis, uncomplicatedFollow up:f/u 6 hhhmeG68.3 HymjrcabkpkklB07.00 Raynaud's syndrome without gangreneNew Medication:Sildenafil Citrate 20 mg - Up to once or twice daily maximum as needed for severe Raynaud's episodesComments:For bad Raynaud's episode that brings you to the ED; ask for nitroglycerin cream / paste on the finger that is involved and/or sympathetic nerve cikiwJ98.4 Inflammatory polyarthropathyNew Medication:Hydroxychloroquine Sulfate 200 mg - take one tab by mouth daily for one week, then increase to one tab twice daily thereafter Functional Status Description No Information Available Mental Status Description No Information Available Referrals Refer to Reason for Referral Status Appt Date Lan Wiseman M.D. Hospital follow up for a possible stroke; Created admitted 09/05-09/[address] [place] [address] [place] [id number] [phone] Lisa Chamberlain MD Sent 09/07/[address] [place] [address] [phone]
--- OUTSIDE RECORDS SUMMARY | 2019-09-27 20:54 | XMS REPORT | Continuity of Care Document ---
:1940 External Reference #:[id number] Author Name Bruna Espinoza MD (transmitted by agent of provider Lydia Maciel) Address [address] [place] [address] Care Team Providers Name Role Phone James Encarnacion MD - Gastroenterology Care Team Information Vp Delivery [phone] Kimo Smith MD - Obstetrics & Care Team Information Vp Delivery [phone] Gynecology Matthias Geronimo MD - Care Team Information Vp Delivery [phone] Otolaryngology Aneesh Fofana MD - Pulmonary Disease Care Team Information Vp Delivery Gauri Herbert M.D. - Family Medicine Care Team Information Vp Delivery Problems Active Problems Provider Date Heterozygous Factor [...] Significant Secondhand Smoke Exposure Smoking Status Reviewed: 09/19/19 Significant Secondhand Smoke Exposure ETOH Use 10/05/2018 [...] one sc every 6 1ml M81.0 Gauri Herbert, 60mg/ml Soln Prefill steve THOMPSON 9 Syringe Nebulizer every 6 hours as 1units J47.9 Nina Misc needed Gamal Cortez 9 Nebulizer 1 unit nebulization 1units J47.9 Nina Kit/Tubing/Mouthpiece every 6 hours as Gamal Cortez Kit needed Shingrix 0.5 milliliters 2units Tony Ulrich 50mcg/0.5ML intramuscular now Natalie 9 Suspension Rec and 2-3 months Gamal,FACP later repeat Calcium Citrate + D3 2 per day Tony Ulrich Natalie [id number] Tablets M.D.,FACP Potassium/Magnesium 1 daily Tony Ulrich Aspartate Agate, 1 50-20mg Capsules M.D.,FACP Vitamin A 1 daily Tony Ulrich 5000Unit Capsules Agate, 1 M.D.,FACP Lipitor 1 by mouth every [...] Multi 1 per day Unknown Capsules 0 [place] Stress B one per day Unknown 0 [...] Code Status Date Vaccine Reaction Lot # [id number] Given 05/08/2018 Influenza Virus Vaccine, [id number] Quadrivalent, Split, Preservative Free 00060 Given 05/02/2017 Influenza Virus Vaccine, pt tolerated well [id number] Quadrivalent, Split, Preservative Free 90052 Given 05/15/2016 Influ Virus Vaccine, noo reaction noted ... [id number] Quadrivalent, Split Virus, [place] [address] Given 04/17/2015 Influenza Virus Vaccine, no reaction , no [id number] Quadrivalent, Split, comments Preservative Free 67608 Given 09/19/2014 Pneumococcal Conjugate [id number] Vaccine 13 Valent For Intramuscular Use 72418 Given 05/03/2014 Influenza Virus Vaccine, Quadrivalent, Split, Preservative Free 34219 Given 05/03/2014 Influenza Virus Vaccine, [id number] Quadrivalent, Split, Preservative Free 10603 Given 05/07/2013 Flu Vaccine Split Virus [id number] Preservative Free For Indiv 3Yr Older Q2038 Given 04/04/2012 Fluzone Vaccine [id number] Q2038 Given 04/09/2011 Fluzone Vaccine [id number] Q2038 Given 04/09/2011 Fluzone Vaccine Q2038 Given 04/09/2011 Fluzone Vaccine 99977 Given 05/08/2010 Influenza Virus 3Yrs & [id number] Over 95567 Given 05/08/2010 Influenza Virus 3Yrs & Over 54274 Given 07/21/2009 Influenza Virus Vaccine, [id number] 5P Pandemic Formulation 50695 Given 05/07/2008 Influenza Virus 3Yrs & Over 79698 Given 05/07/2008 Influenza Virus 3Yrs & 7723 Over 51107 Given 09/02/2006 Zoster (Zostavax) 03780 Given 12/10/2005 Tetanus And Diptheria (Td) For Adult Use Preservative Free 32845 Given 02/09/2005 Pneumonia Vaccine Vital Signs Date Vital Result Comment 09/19/2019 7:57am Height 65.5 inches 5'5.50" Weight 114.00 lb Heart Rate 81 /min BP Systolic Sitting 119 mmHg BP Diastolic Sitting 79 mmHg O2 % BldC Oximetry 97 % BMI (Body Mass Index) 18.7 kg/m2 09/13/2019 12:49pm Height 65.5 inches 5'5.50" Weight 116.00 lb Heart Rate 78 /min BP Systolic Sitting 109 mmHg BP Diastolic Sitting 73 mmHg O2 % BldC Oximetry 98 % BMI (Body Mass Index) 19.0 kg/m2 Results Test Acquired Date Facility Test Result H/L Range Note CBC Auto 09/05/2019 [facility] White Blood 7.2 10^3/uL Normal 3.5-10.[address] [place] [address] [phone] Red Blood Count 4.66 10^6/uL Normal 3.70-4.87 [...] Red Blood Cells % 0.1 Inr/Protime 09/05/2019 [facility] Inr 0.91 Normal 0.82-1.[address] [place] [address] [phone] Laboratory test 09/05/2019 [facility] Partial 34.7 Normal 26.0 -38.[address] [place] [address] Time PTT [phone] Lactic Acid 0.5 mmol/L Normal 0.5-2.0 2 Comp Metabolic 09/05/2019 [facility] Sodium 138 mmol/L Normal 135-[address] [place], [place] [address] [phone] Chloride 104 mmol/L Normal 101-111 Co2 Carbon [...] TNP U/L 13-39 5 Lipid Profile 09/05/2019 [facility] Triglycerides 119 mg/dL 6 (Trig/Chol/HDL) [address] [place] [address] [phone] Cholesterol 234 mg/dL 7 HDL Cholesterol 65.5 mg/dL 8 LDL Cholesterol 145 mg/dL 9 Laboratory 09/05/2019 [facility] Troponin-I 0.00 <0.03 10 test finding [address] (TnI) ng/[place] [address] [phone] CBC No Diff 08/07/2019 [facility] White Blood 6.7 Normal 3.5- 10.[address] Count 10^3/[place] [address] [phone] Red Blood Count 4.58 10^6/uL Normal 3.70-4.87 Hemoglobin 15.4 g/dL Normal 12.0-16.0 Hematocrit 45 % Normal 35-47 Mean Corpuscular Volume 99 fL High 80-97 Mean Corpuscular Hemoglobin 34 pg High 27-31 Mean Corpuscular HGB Conc 34 g/dL Normal 31-36 Red Cell Distribution Width 14 % Normal 10-15 Platelet Count 260 10^3/uL Normal 150-450 Mean Platelet Volume 8.9 fL Normal 7.4-10.4 Basic Metabolic 08/07/2019 [facility] Sodium 140 mmol/L Normal 135-[address] [place] [address] [phone] Potassium 4.3 mmol/L Normal 3.5-5.0 Chloride 105 [...] immediately to secondary confirmatory testing. Using the [employer] DxI 800 Access Immunoassay systems, the 99th [...] dialysis) Procedures Date Code Description Status 05/08/2019 38260 Admin Of Inj Completed 10/25/2018 [id number] Bone Mineral Density Test Completed 10/21/2017 [id number] Mammogram Completed 10/20/2016 [id number] Bone Mineral Density Test Completed 10/20/2016 [id number] Mammogram Completed 04/09/2015 [id number] Colonoscopy Completed 07/05/2013 [id number] Bone Mineral Density Test Completed 12/28/2012 [id number] Mammogram Completed 10/22/2011 [id number] Colonoscopy Completed 09/16/2010 [id number] Mammogram Completed 09/05/2009 [id number] Colonoscopy Completed 07/11/2008 [id number] Mammogram Completed 04/10/2008 [id number] Bone Mineral Density Test Completed Medical Devices Description No Information Available Encounters Type Date Location Provider Dx Diagnosis Office Visit 09/06/2019 [facility] Lilo Zaldivar I63.9 Cerebral infarction, 10:08a SAIMA Parry unspecified E78.5 Hyperlipidemia, unspecified Z85.3 Personal history of malignant neoplasm of breast Z87.09 Personal history of other diseases of the respiratory system Office Visit 09/05/2019 [facility] I63.9 Cerebral 10:08a Assocadele, N.P. infarction, Hospitalists unspecified E78.5 Hyperlipidemia, unspecified G43.909 Migraine, unsp, not intractable, without status migrainosus Office Visit 08/07/2019 11:30a [facility] - Bruna Espinoza MD R05 Cough Ccmob M79.89 Other specified soft tissue disorders Office Visit 07/27/2019 1:00p [facility] - Bruna Espinoza MD R05 Cough Ccmob J47.9 Bronchiectasis, uncomplicated Office Visit 04/19/2019 9:45a Pulmonology And Sleep Kameron Kapadia MD R05 [facility] J47.9 Bronchiectasis, uncomplicated R91.8 Other nonspecific abnormal finding of lung field Assessments Date Code Description Provider 09/19/2019 I63.9 Cerebral infarction, unspecified Bruna Espinoza MD 09/19/2019 E78.5 Hyperlipidemia, unspecified Bruna Espinoza MD 09/19/2019 R42 Dizziness and giddiness Bruna Espinoza MD 09/19/2019 K59.00 Constipation, unspecified Bruna Espinoza MD 09/13/2019 I73.00 Raynaud's syndrome without gangrene Bulmaro Gonzalez MD 09/13/2019 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 09/06/2019 I63.9 Cerebral infarction, unspecified Lilo Parry, SAIMA 09/06/2019 E78.5 Hyperlipidemia, unspecified Lilo Parry NP 09/06/2019 Z85.3 Personal history of malignant neoplasm Lilo Parry MOLD MAKER APPRENTICE of breast 09/06/2019 Z87.09 Personal history of other diseases of Lilo Parry MOLD MAKER APPRENTICE the respiratory system 09/05/2019 I63.9 Cerebral infarction, unspecified Fletcher Lerma, N.P. 09/05/2019 E78.5 Hyperlipidemia, unspecified Fletcher Lerma, N.P. 09/05/2019 G43.909 Migraine, unspecified, not intractable, Fletcher Lerma N.P. without status migrainosus 08/07/2019 R05 Cough Bruna Espinoza MD 08/07/2019 M79.89 Other specified soft tissue disorders Bruna Espinoza MD 07/27/2019 R05 Cough Bruna Espinoza MD 07/27/2019 J47.9 Bronchiectasis, uncomplicated Bruna Espinoza MD 05/08/2019 M81.0 Age-related osteoporosis without current Nurse Visit A pathological fracture 04/19/2019 R05 Phani Kapadia MD 04/19/2019 J47.9 Bronchiectasis, uncomplicated Kameron Kapadia MD 04/19/2019 R91.8 Other nonspecific abnormal finding of Kameron Kapadia MD lung field Plan of Treatment Future Appointment(s):10/18/2019 9:30 am - Lan Wiseman M.D. at [id number]/25/2019 4:00 pm - Bulmaro Gonzalez MD at [facility]09/28/2019 10:00 am - Eric Niño LCSW at [facility] - [facility]09/19/2019 - Bruna Espinoza MDI63.9 Cerebral infarction, xjcdrfedirrD31.5 Hyperlipidemia, wpexjqhniydM43 Dizziness and cayndfjlhZ17.00 Constipation, unspecifiedReferral:James Encarnacion MD, Gastroenterology Functional Status Description No Information Available Mental Status Description No Information Available Referrals Refer to Dr Reason for Referral Status Appt Date James Encarnacion MD Created [address] [place] [id number] [phone] Lan Wiseman M.D. Hospital follow up for a possible stroke; Sent 10/17 admitted 2-09/07 [address] [place] [address] [place] [address] [phone] Lisa Chamberlain MD Sent 09/07/2019 [address], [place] [address] [phone]
[2019-09-28] MEDS ORDERED: Acetaminophen TAB* 325 MG PO ONE (02:52)
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
[2019-09-28 03:03] VITALS: BP 148/72
== END 2019-09-28 03:02 | disposition home or self-care (01) ==
LOC: ED 20:39
DX: S09.90XA Unspecified injury of head, initial encounter (principal); S60.222A Contusion of left hand, initial encounter; M25.552 Pain in left hip; R53.83 Other fatigue; W18.00XA Striking against unspecified object with subsequent fall, initial encounter; K21.9 Gastro-esophageal reflux disease without esophagitis; Y92.9 Unspecified place or not applicable; Z79.899 Other long term (current) drug therapy; Z88.1 Allergy status to other antibiotic agents; Z79.82 Long term (current) use of aspirin; Z86.73 Personal history of transient ischemic attack (TIA), and cerebral infarction without residual deficits; E78.5 Hyperlipidemia, unspecified; Z85.3 Personal history of malignant neoplasm of breast; F41.9 Anxiety disorder, unspecified
CPT/HCPCS: 70450; 99283; A9270-GY

== ENCOUNTER 2022-09-20 11:16 | Observation (INO) ==
[2022-09-20 16:19] LABS: ABS Eosinophils 0.1 10^3/ul (0-0.6); ABS Lymphocytes 1.7 10^3/ul (1.0-4.8); ABS Monocytes 0.5 10^3/ul (0-0.8); ABS Neutrophils 4.6 10^3/ul (1.5-7.7); Eosinophil % 1.2 %; Hematocrit 47 % (35-47); Hemoglobin 15.3 g/dL (12.0-16.0); Lymphocyte % 24.9 %; Mean Corpuscular HGB Conc 33 g/dL (31-36); Mean Corpuscular Hemoglobin 33 pg (27-31); Mean Corpuscular Volume 99 fL (80-97); Mean Platelet Volume 7.4 fL (7.4-10.4); Platelet Count 242 10^3/uL (150-450); Red Blood Count 4.68 10^6 /uL (3.70-4.87); Red Cell Distribution Width 14 % (10-15); White Blood Count 6.9 10^3/uL (3.5-10.8)
[2022-09-20 17:06] LABS: Albumin 4.6 g/dL (3.2-5.2); Calcium 10.2 mg/dL (8.6-10.3); Creatinine, Serum 0.65 mg/dL (0.51-0.95); Globulin 2.3 g/dL (2-4); Potassium 4.3 mmol/L (3.5-5.0); Total Bilirubin 0.6 mg/dL (0.2-1.0); Total Protein 6.9 g/dL (6.4-8.9); eGFR CKD-EPI 87.3 (>60)
[2022-09-20] MEDS ORDERED: Iohexol 350 (CONTRAST) 500 ML MDV IV ONE (17:24)
[2022-09-20 17:48] LABS: HDL Cholesterol 69.9 mg/dL
[2022-09-20 20:12] LABS: Erythrocyte Sed Rate 5 mm/Hr (0-29)
[2022-09-20] MEDS: DULoxetine DR 20 mg CAP PO SCH (22:38)
[2022-09-20] MEDS: Polyethylene Glycol 3350 17 GM PACKET PO SCH (22:38)
[2022-09-21] MEDS ORDERED: Budesonide NEB 0.25 MG/2 ML NEB.SOLN INH SCH (09:00)
[2022-09-21] MEDS: DULoxetine DR 20 mg CAP PO SCH (09:32)
[2022-09-21] MEDS: Polyethylene Glycol 3350 17 GM PACKET PO SCH (09:41)
[2022-09-21 14:56] VITALS: BP 127/82
== END 2022-09-21 20:23 | disposition home or self-care (01) ==
LOC: ED 11:16 → EDHOLD 11:16 → SUATTDRO 20:18
PROVIDERS: ADMIT Hospitalist; ATTEND Internal Medicine

== ENCOUNTER 2024-02-01 16:48 | Inpatient (IN) ==
[2024-02-01 17:21] LABS: ABS Basophils 0.1 10^3/uL (0.0-0.1); ABS Eosinophils 0.3 10^3/uL (0.0-0.5); ABS Lymphocytes 0.9 10^3/uL (1.0-4.8); ABS Monocytes 0.7 10^3/uL (0.0-0.9); ABS Neutrophils 6.2 10^3/uL (1.5-7.6); ABS Nucleated RBC 0.01 10^3/ul; Hematocrit 43.1 % (35-45); Hemoglobin 14.7 g/dL (11.5-14.3); Lymphocyte % 10.8 %; Mean Corpuscular Hemoglobin 32.8 pg (27-33); Mean Corpuscular Hgb Conc 34.2 g/dL (31-36); Nucleated Red Blood Cells % 0.1 %/100WBC (0.0-0.8); Platelet Count 298 10^3/uL (150-450); Red Blood Count 4.49 10^6/uL (3.63-4.92); Red Cell Distribution Width 13.4 % (12-17); White Blood Count 8.2 10^3/uL (3.8-11.8)
[2024-02-01 17:33] LABS: INR 0.91 (0.83-1.13)
[2024-02-01 17:48] LABS: Albumin 4.1 g/dL (3.2-5.2); Albumin/Globulin Ratio 1.6 (1-3); Calcium 9.6 mg/dL (8.6-10.3); Creatinine, Serum 0.89 mg/dL (0.51-0.95); Globulin 2.6 g/dL (2-4); Total Bilirubin 0.6 mg/dL (0.2-1.0); Total Protein 6.7 g/dL (6.4-8.9); eGFR CKD-EPI 63.9 (>60)
[2024-02-01 19:47] LABS: High Sensitivity Troponin 1 Hr 6 pg/mL (<15)
[2024-02-01] MEDS: Iohexol 350 (CONTRAST) 500 ML MDV IV ONE (19:47)
[2024-02-01] MEDS: Heparin 5000 UNITS/ML 1 mL VIAL SUBCUT SCH (23:06)
[2024-02-01] MEDS: Cefepime 2 GM in Dextrose 2 GM/50 ML BAG IV ONE (23:12)
[2024-02-02] MEDS: Cefepime 2 GM in Dextrose 2 GM/50 ML BAG IV SCH (01:16)
[2024-02-02] MEDS: Azithromycin 500 mg/250 ml NS 500 MG/250 ML BAG IVPB SCH (01:20)
[2024-02-02] MEDS: Albuterol HFA INHALER 8 gm MDI INH PRN (03:03)
[2024-02-02 06:23] LABS: ABS Basophils 0.1 10^3/uL (0.0-0.1); ABS Eosinophils 0.1 10^3/uL (0.0-0.5); ABS Monocytes 0.8 10^3/uL (0.0-0.9); ABS Neutrophils 6.1 10^3/uL (1.5-7.6); Eosinophil % 1.7 %; Hematocrit 36.4 % (35-45); Hemoglobin 12.4 g/dL (11.5-14.3); Lymphocyte % 12.4 %; Mean Corpuscular Hemoglobin 32.3 pg (27-33); Mean Platelet Volume 7.2 fL (7.5-11.2); Platelet Count 302 10^3/uL (150-450); Red Blood Count 3.83 10^6/uL (3.63-4.92); Red Cell Distribution Width 13.3 % (12-17); White Blood Count 8.1 10^3/uL (3.8-11.8)
[2024-02-02 06:40] LABS: Calcium 8.4 mg/dL (8.6-10.3); Creatinine, Serum 0.72 mg/dL (0.51-0.95); Magnesium 1.8 mg/dL (1.9-2.7); Potassium 4.3 mmol/L (3.5-5.0); eGFR CKD-EPI 82.4 (>60)
[2024-02-02] MEDS: Magnesium Sulfate 2 gm BAG 2 GM/50 ML BAG IVPB ONE (10:29)
[2024-02-02] MEDS: Aspirin EC 81 mg TAB.EC (enteric coated) PO SCH (10:31)
[2024-02-03 06:54] LABS: Hematocrit 39.8 % (35-45); Hemoglobin 13.5 g/dL (11.5-14.3); Mean Corpuscular Hemoglobin 32.7 pg (27-33); Mean Corpuscular Hgb Conc 33.8 g/dL (31-36); Mean Corpuscular Volume 96.7 fL (80-97); Mean Platelet Volume 6.8 fL (7.5-11.2); Platelet Count 320 10^3/uL (150-450); Red Blood Count 4.12 10^6/uL (3.63-4.92); Red Cell Distribution Width 13.3 % (12-17); White Blood Count 7.4 10^3/uL (3.8-11.8)
[2024-02-03 07:24] LABS: Calcium 8.8 mg/dL (8.6-10.3); Creatinine, Serum 0.67 mg/dL (0.51-0.95); Potassium 4.5 mmol/L (3.5-5.0); eGFR CKD-EPI 86.1 (>60)
[2024-02-03 10:33] VITALS: BP 106/60
== END 2024-02-03 12:45 | disposition home or self-care (01) | DRG 193 ==
LOC: ED 16:48 → EDHOLD 16:48 → MED 02-02 00:49
PROVIDERS: ADMIT Internal Medicine; ATTEND Internal Medicine

== ENCOUNTER 2024-06-21 17:12 | Observation (INO) ==
[2024-06-21 18:35] LABS: ABS Basophils 0.1 10^3/uL (0.0-0.1); ABS Eosinophils 0.2 10^3/uL (0.0-0.5); ABS Lymphocytes 1.6 10^3/uL (1.0-4.8); ABS Monocytes 0.7 10^3/uL (0.0-0.9); ABS Neutrophils 5.2 10^3/uL (1.5-7.6); Hematocrit 41.1 % (35-45); Hemoglobin 13.7 g/dL (11.5-14.3); Lymphocyte % 20.5 %; Mean Corpuscular Hemoglobin 32.1 pg (27-33); Mean Corpuscular Hgb Conc 33.4 g/dL (31-36); Mean Corpuscular Volume 96.2 fL (80-97); Platelet Count 282 10^3/uL (150-450); Red Blood Count 4.27 10^6/uL (3.63-4.92); Red Cell Distribution Width 13.9 % (12-17); White Blood Count 7.7 10^3/uL (3.8-11.8)
[2024-06-21] MEDS: Iodixanol 320 (CONTRAST) 100 ML SDV IV ONE (18:45)
[2024-06-21 18:56] LABS: ALT 16 U/L (7-52); Albumin 4.3 g/dL (3.2-5.2); Alkaline Phosphatase 78 U/L (35-149); Anion Gap 6 mmol/L (2-16); Blood Urea Nitrogen 21 mg/dL (6-24); CO2 Carbon Dioxide 27 mmol/L (22-32); Calcium 9.7 mg/dL (8.6-10.3); Chloride 107 mmol/L (101-111); Cholesterol 181 mg/dL; Creatinine, Serum 0.76 mg/dL (0.51-0.95); Globulin 2.1 g/dL (2-4); Glucose 78 mg/dL (70-100); HDL Cholesterol 62.2 mg/dL; LDL Cholesterol 105 mg/dL; Sodium 140 mmol/L (135-145); Total Bilirubin 0.4 mg/dL (0.2-1.0); Total Protein 6.4 g/dL (6.4-8.9); Triglycerides 70 mg/dL; eGFR CKD-EPI 76.7 (>60)
[2024-06-21 18:57] LABS: Activated Partial Thrombo Time 31.4 seconds (26.0-38.0); INR 0.96 (0.85-1.14)
[2024-06-21 20:09] LABS: Urine Appearance Clear; Urine Bilirubin Negative (Negative); Urine Blood Negative (Negative); Urine Color Light-Yellow; Urine Glucose Negative (Negative); Urine Ketones Negative (Negative); Urine Nitrite Negative (Negative); Urine Protein Negative (Negative); Urine Specific Gravity 1.047 (1.002-1.030); Urine Urobilinogen Negative (Negative)
[2024-06-21 20:32] LABS: Direct Bilirubin Redraw 0.1 mg/dL (0.1-0.5); Potassium Redraw 3.7 mmol/L (3.5-5.0)
[2024-06-22] MEDS: NS 0.9% 500 ml BAG 500 ML IV ONE (03:57)
[2024-06-22 07:22] LABS: Calcium 7.8 mg/dL (8.6-10.3); Creatinine, Serum 0.57 mg/dL (0.51-0.95); Potassium 3.4 mmol/L (3.5-5.0)
[2024-06-22] MEDS: KCL 20 MEQ/100 ML IVPREMIX 20 MEQ/100 ML BAG IV ONE (08:01)
[2024-06-22] MEDS ORDERED: Aspirin EC 81 mg TAB.EC (enteric coated) PO SCH (09:00)
[2024-06-22] MEDS: CMCS: Sildenafil (PULMONARY)20mg(NF) PO SCH (10:18)
[2024-06-22] MEDS: Potassium Chlor 20 meq TAB.ER PO ONE (11:27)
[2024-06-23 05:27] VITALS: BP 122/65
[2024-06-23 07:51] LABS: Calcium 9.3 mg/dL (8.6-10.3); Creatinine, Serum 0.76 mg/dL (0.51-0.95); Potassium 4.1 mmol/L (3.5-5.0); eGFR CKD-EPI 76.7 (>60)
== END 2024-06-23 10:15 | disposition home or self-care (01) ==
LOC: ED 17:12 → EDHOLD 17:12 → SUATTDRO 20:51 → MEDTELE 06-22 08:00
PROVIDERS: ADMIT Student in an Organized Health Care Education/Training Program; ATTEND Internal Medicine